=== PATIENT | female | born 1935 | race Caucasian/White ===

== ENCOUNTER 2020-03-06 12:37 | Emergency (ER) | payer MEDICARE, MEDICAID, SELFPAY ==
[2020-03-06 12:37] VITALS: BP 181/94; PULSE 62; RESP 18; O2SAT 91
[2020-03-06 12:38] VITALS: BP 176/99; PULSE 62; RESP 16; TEMP 36.6; O2SAT 94; BMI 31.8
--- NOTE | 2020-03-06 12:45 | CT_ITS ---
WS: [id number] CT HEAD NONCONTRAST HISTORY: Head Injury, On Blood Thinners TECHNIQUE: Contiguous axial imaging performed through the brain in 2.5 mm imaging. Bone and soft tiss ue windows. Sagittal and coronal reformats reviewed. All CT scans at [facility] use at le ast one of these dose optimization techniques: automated exposure control; mA and/or kV adjustment pe r patient size (includes targeted exams where dose is matched to clinical indication); or iterative r econstruction. DLP: 761.89 mGy.cm COMPARISON: 03/27/2016 No acute intracranial hemorrhage, midline shift or mass effect. Moderate atrophy and moderate chronic microvascular ischemic disease. Increased density in the RIGHT MCA similar to prior studies. Multiple prior lacunar infarcts. Largest is in the LEFT thalamus. Ventricles: Normal size with no hydrocephalus. Paranasal sinuses: Mucoperiosteal thickening LEFT maxillary sinus. No air-fluid levels. Mastoid air cells: Well pneumatized. Calvarium and scalp: No skull fracture. There is soft tissue hematoma and contusion with overlying st aples in the RIGHT posterior occiput. CT/CT head wo con* [id number] IMPRESSION: 1. No acute intracranial hemorrhage or edema. 2. Moderate atrophy with moderate extensive chronic microvascular ischemic dis ease and stable lacunar infarcts.
[2020-03-06 13:10] VITALS: BP 181/94; PULSE 60; RESP 18; O2SAT 93
--- NOTE | 2020-03-06 13:34 | W.ED.HEATRA ---
HPI - Head Injury General: Chief complaint: Head Injury Stated complaint: FALL Time Seen by Provider: 03/06/20 12:45 Source: patient and EMS Mode of arrival: EMS Limitations: no limitations History of Present Illness: HPI Narrative: Mrs. Villalpando is a very nice 84-year-old female who comes in after she stumbled and fell and hit the back of her head. She had no loss of consciousness. She denies any neck pain. She denies any visual symptoms, nausea or vomiting or disorientation. Patient was concerned though because she is on Eliquis. She knows that she needs to be cautious it with any injuries because of this medication. She otherwise feels fine is not nauseated has not vomited. Associated symptoms: Deny confusion, nausea, neck pain, syncope, vertigo or vomiting Review of Systems Const: Denies: fever(s), chills, body aches, fatigue, malaise or diaphoresis Eyes: Denies: change in vision, blurry vision, blind spots, photophobia, eye discharge or eye redness ENMT: Denies: throat pain, odynophagia, hoarseness, swelling of lips/tongue, oral sores, ear or mastoid pain, ear discharge, change in hearing or nasal discharge Card: Denies: chest pain, palpitations, irregular heart rhythm, edema, lightheadedness, syncope, pre-syncope, dyspnea on exertion or orthopnea Resp: Denies: dyspnea, productive cough, non-productive cough, wheezing, hemoptysis or chest congestion GI: Denies: abdominal pain, nausea, vomiting, hematemesis, coffee ground emesis, heartburn, diarrhea, constipation, GI cramping, hematochezia or melena : Denies: flank pain, dysuria, urinary frequency, urinary urgency or hematuria Musc: Denies: neck pain, back pain, extremity pain, extremity swelling, joint pain, joint swelling, joint redness, joint warmth or joint stiffness Skin/Breast: Denies: rash, pruritus, erythema, skin tenderness or jaundice Neuro: Denies: headache(s), numbness in extremities, weakness in extremities, sensory changes, lack of coordination, difficulty walking, dizziness, vertigo, confusion, Slurred speech present or seizure-like activity Jayjay/Lymph: Denies: easy bruising, easy bleeding, petechiae, purpura or enlarged lymph nodes All/Imm: Denies: urticaria, throat swelling, tongue swelling, facial swelling or acute wheezing PFSH ED PFSH: Medical History Atherosclerotic heart disease Atrial fibrillation Chest pain Chronic intractable headache DVT (deep venous thrombosis) Essential hypertension Fatigue Mixed hyperlipidemia Pulmonary embolism Surgical History History of esophagogastroduodenoscopy (EGD) History of toe surgery Hx of cholecystectomy Hx of colonoscopy Family History Other No family history of disorders Social History Smoking and tobacco status: former smoker Alcohol intake: never Marital status: / Physical Exam Const: COMMON NORMALS: no acute distress, patient oriented x3, no limitations, healthy appearing and well nourished GENERAL APPEARANCE: cooperative, well kempt and well developed HENMT: COMMON NORMALS: normocephalic, atraumatic, external ears normal, EAC's normal and Normal external nose present HEAD & SCALP: normal to inspection, normocephalic and atraumatic FACE & SINUS: normal facial exam and face symmetric NOSE: Normal external nose present and Normal nares present EXTERNAL EAR: Yes external ears normal EXTERNAL AUDITORY CANAL: EAC's normal MOUTH: Normal oral and palatal mucosa present, lip normal and tongue normal Eye: COMMON NORMALS: Equal, round and reactive pupils present and conjunctivae normal GENERAL EYE: appearance normal, both eyes and all related structures ALIGNMENT: Yes alignment normal PERIORBITAL: periorbital findings normal EYELID: eyelids normal CONJUNCTIVA: Yes conjunctivae normal SCLERA: sclerae normal PUPIL: Yes Equal, round and reactive pupils present Neck/C-Spine: COMMON NORMALS: full ROM, no lymphadenopathy, supple, no meningeal signs and no JVD GENERAL: Yes normal visual inspection and Yes trachea midline Chest: COMMONS NORMALS: normal inspection of the chest and normal palpation of entire chest wall Resp: COMMON NORMALS: normal respiratory effort, No retractions and No use of accessory muscles EFFORT & INSPECTION: Yes able to speak in complete sentences and Yes symmetric chest movement AUSCULTATION: no crackles, no rales, no rhonchi and no wheezes Cardio: COMMON NORMALS: no JVD, regular rate, regular rhythm, S1 normal heart sound present and S2 normal heart sound present RATE: regular rate RHYTHM: regular rhythm HEART SOUNDS: S1 normal heart sound present, S2 normal heart sound present, no click, no gallops, no murmurs, no rubs and abnormal split S2 GI: COMMON NORMALS: Soft to palpation and No hepatosplenomegaly present PALPATION: Yes Soft to palpation, No Tenderness to palpation present (GI), No Guarding due to palpation present (GI), No Rigid due to palpation, Yes No hepatosplenomegaly present, No Hernia present, No Palpable mass present and No Pulsatile mass present : COMMON NORMALS: Yes no CVA tenderness BLADDER/KIDNEY EXAM: Yes no CVA tenderness EXTERNAL FEMALE EXAM: No Hernia present Back/Pelvis: COMMON NORMALS: no CVA tenderness, thoracic and lumbar spine normal to inspection, no thoracic nor lumbar tenderness and thoraco-lumbar ROM normal Extremity: COMMON NORMALS: normal to inspection, full ROM, capillary refill normal, no joint enlargement, no clubbing, cyanosis or edema and no calf tenderness Neuro: COMMON NORMALS: patient oriented x3, CN's II-XII intact bilaterally, moves all extremities, no focal motor deficits and no sensory deficits noted MENINGEAL SIGNS: Yes no meningeal signs SPEECH: speech normal Psych: COMMON NORMALS: mental status grossly normal, Normal thought process present, cooperative, normal affect, speech normal and activity/motor behavior normal APPEARANCE: Yes well kempt SPEECH: Yes normal speech THOUGHT PROCESS: Normal thought process present Skin: COMMON NORMALS: no rashes or lesions noted, turgor normal, no jaundice, no petechiae and no mottling GENERAL SKIN EXAM: no rashes or lesions noted and turgor normal Procedures Laceration Laceration 1: Site: scalp Size (cm): 1 Description: linear Depth: simple, single layer Pre-repair: wound explored, irrigated extensively and deep structures intact Skin layer closed with: other (2 david placed) Course Vital Signs: Vital signs: Vital Signs Temperature 97.8 F 03/06/20 12:38 Pulse Rate 60 03/06/20 13:10 Respiratory Rate 18 03/06/20 13:10 Blood Pressure 181/94 03/06/20 13:10 Pulse Oximetry 93 03/06/20 13:10 MDM - Head Injury MDM Narrative: Medical decision making narrative: Patient is happy to hear that her CT scan is negative. I did place 2 david in her head she declined any anesthesia. She agrees to return should her symptoms change or worsen but at this time she would like to be discharged. Imaging Data^: CT Head: Radiologist's impression: [facility] [address] [place] [address] CT Scan Report Signed Patient: Aura Villalpando Unit #: [id number] : 1935 Age/Sex: 84 / F ADM Date: 03/06/20 Loc: ER Room/Bed: Attending Dr: Ordering Provider/Ordering MD: Nancy Hu DO Date of Service: 03/06/20 Procedure(s): CT head wo con* [id number] Accession Number(s): [id number] Report Number: [id number] WS: [id number] CT HEAD NONCONTRAST HISTORY: Head Injury, On Blood Thinners TECHNIQUE: Contiguous axial imaging performed through the brain in 2.5 mm imaging. Bone and soft tissue windows. Sagittal and coronal reformats reviewed. All CT scans at [facility] use at least one of these dose optimization techniques: automated exposure control; mA and/or kV adjustment per patient size (includes targeted exams where dose is matched to clinical indication); or iterative reconstruction. DLP: 761.89 mGy.cm COMPARISON: 03/27/2016 No acute intracranial hemorrhage, midline shift or mass effect. Moderate atrophy and moderate chronic microvascular ischemic disease. Increased density in the RIGHT MCA similar to prior studies. Multiple prior lacunar infarcts. Largest is in the LEFT thalamus. Ventricles: Normal size with no hydrocephalus. Paranasal sinuses: Mucoperiosteal thickening LEFT maxillary sinus. No air-fluid levels. Mastoid air cells: Well pneumatized. Calvarium and scalp: No skull fracture. There is soft tissue hematoma and contusion with overlying david in the RIGHT posterior occiput. CT/CT head wo con* [id number] IMPRESSION: 1. No acute intracranial hemorrhage or edema. 2. Moderate atrophy with moderate extensive chronic microvascular ischemic disease and stable lacunar infarcts. Dictated By: Michaelle Angela DO Signed By: Michaelle Angela DO Signed Date/Time: 03/06/20 1414 DD/ 1408 Discharge Plan Discharge Patient Disposition: Home, Self-Care Clinical Impression: Laceration Head injury Qualifiers: Encounter type: initial encounter Qualified Code(s): S09.90XA - Unspecified injury of head, initial encounter Condition: Stable Prescriptions: No Action omega-3 fatty acids [Fish Oil Concentrate] 1,000 mg capsule 1,000 mg PO DAILY RF: 0 cranberry extract 250 mg tablet PO DAILY RF: 0 cholecalciferol (vitamin D3) 1,000 unit capsule 1,000 unit PO DAILY RF: 0 vitamin E mixed 1,000 unit capsule PO DAILY RF: 0 ferrous sulfate 325 mg (65 mg iron) tablet,delayed release (DR/EC) 325 mg PO .every other day RF: 0 Xarelto 15 mg tablet 15 mg PO DAILY RF: 0 calcium citrate 250 mg calcium tablet 250 mg PO DAILY RF: 0 spironolactone 25 mg tablet 25 mg PO DAILY RF: 0 carvedilol 25 mg tablet 25 mg PO BID RF: 0 cetirizine 10 mg tablet 10 mg PO DAILY RF: 0 Discharge Orders: Discharge Order (Routine); Ordered 03/06/20 Ordered By: Nancy Hu Referrals: Bhaskar Alejandra MD [Primary Care Provider] - 1-3 days Discharge Diet: Advance as tolerated Discharge Activity: Increase activity as tolerated Patient Instructions: Laceration (ED), Minor Head Injury (ED) Activity Restrictions/Additional Instructions: Please return to the ER immediately for any of the signs or symptoms listed on your discharge instruction sheets, worsening/changing of your symptoms, you are not getting better as quickly as expected, or for ANY other cause or concerns. Please return to the ER or follow-up with your doctor in 7 days to have your david removed. Coding Level of Care Code ED Admitting Clerk for Gayle Fwd Exam Comprehensive
[2020-03-06 15:46] VITALS: BP 160/94; PULSE 67; RESP 16; O2SAT 95
== END 2020-03-06 15:46 | disposition home or self-care (01) ==
PROVIDERS: Emergency Provider Emergency Medicine; PCP Family Medicine
DX: S01.01XA Laceration without foreign body of scalp, initial encounter (principal); W01.198A Fall on same level from slipping, tripping and stumbling with subsequent striking against other object, initial encounter; I48.91 Unspecified atrial fibrillation; I10 Essential (primary) hypertension; E78.2 Mixed hyperlipidemia; Z87.891 Personal history of nicotine dependence
CPT/HCPCS: 12001; 12345; 70450; 99281; 99283

== ENCOUNTER 2020-05-21 20:00 | Outpatient (CLI) | payer OTHER, MEDICARE, MEDICAID, SELFPAY | END 2020-05-21 20:01 | disposition home or self-care (01) | LOC: SLEEP 05-22 15:52 | PROVIDERS: PCP Family Medicine; Visit Provider Family Medicine | DX: G47.10 Hypersomnia, unspecified (principal); R40.0 Somnolence | CPT/HCPCS: G0399 ==

== ENCOUNTER 2021-05-15 08:55 | Outpatient (CLI) | payer MEDICARE, MEDICAID, SELFPAY ==
--- NOTE | 2021-05-15 09:07 | XR_ITS ---
WS: [id number] Right knee, AP and lateral views, 05/15/2021 Clinical Data: R KNEE PAIN Comparison: None. Findings: There is osteoarthritic narrowing of the medial and lateral joint compartments. There are osteophytes of the lateral femoral condyle and lateral tibial plateau. The posterior patella shows irregularity. No fractures or dislocations are seen. There is vascular calcification in the [place] of the arteries. 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 Kellgren-Saad Classification: grade 3 (moderate): moderate multiple osteoph ytes, definite narrowing of joint space and some sclerosis and possible deformi ty of bone ends
== END 2021-05-15 08:56 | disposition home or self-care (01) ==
PROVIDERS: PCP Family Medicine; Visit Provider Family Medicine
DX: M17.11 Unilateral primary osteoarthritis, right knee (principal)
CPT/HCPCS: 73560

== ENCOUNTER 2021-06-06 14:39 | Outpatient (CLI) | payer MEDICARE, MEDICAID, SELFPAY ==
--- NOTE | 2021-06-06 15:15 | MR_ITS ---
WS: [id number] MRI RIGHT KNEE NONCONTRAST TECHNIQUE: Axial PD, coronal PD fat sat, coronal PD, sagittal PD, and sagittal PD fat-sat images obta ined. CLINICAL INFORMATION: RIGHT KNEE PAIN COMPARISON: None. FINDINGS: Distal quadriceps and patella tendons intact. Hypertrophic patella. Advanced tricompartmental arthrit is with hypertrophic changes along the joint line. Normal ACL and PCL. Chronic thinning of the medial and lateral meniscus. Blunting of the anterior and posterior horn lateral meniscus with tear at the meniscal root with peripheral herniation of the meniscus. Small parameniscal cysts. Chronic thinning of the medial meniscus without acute tear. 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 No significant subchondral ed augustin. Advanced chondromalacia patella. Small suprapatellar effusion. Small popliteal cyst measuring 2. 1 x 0.7 x 3.6 cm. Medial and lateral collateral ligaments are intact. MR/MR knee RT wo con* [id number] IMPRESSION: 1. Small suprapatellar effusion. 2. Advanced tricompartmental arthritis with joint space narrowing. Hypertrophi c changes along the joint line. 3. Normal ACL and PCL. 4. Advanced chronic thinning of the medial and lateral meniscus with slight pe ripheral extrusion of the lateral meniscus and tear of the meniscal root. Small parameniscal cysts 5. Advanced chondromalacia patella. Advanced chondromalacia involving the medi al and lateral joint compartments. No subchondral edema. 6. Popliteal cyst measuring 2.1 x 0.7 x 3.6 cm
== END 2021-06-06 14:40 | disposition home or self-care (01) ==
LOC: RADSHAW 14:49
PROVIDERS: PCP Family Medicine; Visit Provider Family Medicine
DX: M71.21 Synovial cyst of popliteal space [Baker], right knee (principal); M22.41 Chondromalacia patellae, right knee; M13.861 Other specified arthritis, right knee; M25.461 Effusion, right knee
CPT/HCPCS: 73721

== ENCOUNTER 2021-11-19 14:00 | Outpatient (CLI) | payer MEDICARE, MEDICAID, SELFPAY ==
--- NOTE | 2021-11-19 14:04 | MM_ITS ---
WS: [id number] BILATERAL DIGITAL SCREENING MAMMOGRAPHY WITH CAD CLINICAL INFORMATION: SCREENING HISTORY: Screening mammogram. No current complaints. COMPARISON: October 24, 2018 TECHNIQUE: Bilateral CC and MLO views. FINDINGS: Scattered fibroglandular densities bilaterally. Punctate and lucent centered calcifications. Vascular calcification. Biopsy clip RIGHT breast. Round nodule upper outer LEFT breast measuring 7 mm appears new from previous. Recommend further evaluation with spot compression diagnostic 3-D tomosynthesis a nd ultrasound. RIGHT breast is unremarkable. MM/[place] [id number] IMPRESSION: BI-RADS: 0-Incomplete: Need additional imaging evaluation FOLLOW UP: Need Additional Imaging Recommend further evaluation LEFT breast with spot compression diagnostic 3-D t omosynthesis and ultrasound.
== END 2021-11-19 14:01 | disposition home or self-care (01) ==
LOC: RADSHAW 14:03
PROVIDERS: PCP Family Medicine; Visit Provider Family Medicine
DX: Z12.31 Encounter for screening mammogram for malignant neoplasm of breast (principal)
CPT/HCPCS: 77063; 77067

== ENCOUNTER 2021-12-17 12:48 | Outpatient (CLI) | payer MEDICARE, MEDICAID, SELFPAY ==
--- NOTE | 2021-12-17 13:01 | MM_ITS ---
WS: [id number] LEFT 3D TOMOSYNTHESIS DIGITAL MAMMOGRAPHY WITH CAD CLINICAL INFORMATION: ABNORMAL MAMMO COMPARISON: November 19, 2021 TECHNIQUE: 3 views of the left breast were obtained. FINDINGS: Scattered fibroglandular densities of the left breast. Stable previously described 6 mm ovoid density upper outer LEFT breast. Ultrasound is pending. Vascular calcification. ULTRASOUND BREAST LEFT TECHNIQUE: Ultrasound left breast focused area of concern. CLINICAL INFORMATION: ABNORMAL MAMMO COMPARISON: None. FINDINGS: Ultrasound LEFT breast at the 1:00 position 2 cm from the nipple. There is an incidental cyst with th rough transmission measuring 6.6 x 4.0 x 6.9 mm. This is benign. No suspicious lesions. No lesions to target for biopsy. Recommend return to annual screening mammography. MM/[place] [id number] IMPRESSION: BI-RADS: 2-Benign FOLLOW UP: 1 Year Follow-up Recommend return to annual screening mammography.
== END 2021-12-17 12:49 | disposition home or self-care (01) ==
LOC: RAD 12:50
PROVIDERS: PCP Family Medicine; Visit Provider Family Medicine
DX: R92.8 Other abnormal and inconclusive findings on diagnostic imaging of breast (principal)
CPT/HCPCS: 76642; 77061

== ENCOUNTER → 2021-12-31 13:53 | Outpatient (BNVA) | payer MEDICARE, MEDICAID, SELFPAY | PROVIDERS: PCP Family Medicine; Visit Provider Nurse Practitioner Family | DX: I48.11 Longstanding persistent atrial fibrillation (principal); Z79.01 Long term (current) use of anticoagulants; I10 Essential (primary) hypertension; Z87.891 Personal history of nicotine dependence | CPT/HCPCS: 99213; 99214 ==

== ENCOUNTER → 2022-01-07 14:32 | Outpatient (BNVA) | payer MEDICARE, MEDICAID, SELFPAY | PROVIDERS: PCP Family Medicine; Visit Provider Orthopaedic Surgery | DX: Z71.89 Other specified counseling (principal); Z87.891 Personal history of nicotine dependence; M17.11 Unilateral primary osteoarthritis, right knee | CPT/HCPCS: 20610; J0702; J3490 ==

== ENCOUNTER → 2022-06-24 13:35 | Outpatient (BNVA) | payer MEDICARE, MEDICAID, SELFPAY | PROVIDERS: PCP Family Medicine; Visit Provider Internal Medicine Cardiovascular Disease | DX: I48.11 Longstanding persistent atrial fibrillation (principal); Z79.01 Long term (current) use of anticoagulants; I82.519 Chronic embolism and thrombosis of unspecified femoral vein; I27.82 Chronic pulmonary embolism; E78.5 Hyperlipidemia, unspecified; I10 Essential (primary) hypertension; Z87.891 Personal history of nicotine dependence | CPT/HCPCS: 99214 ==

== ENCOUNTER → 2022-07-16 13:13 | Outpatient (BNVA) | payer MEDICARE, MEDICAID, SELFPAY | PROVIDERS: PCP Family Medicine; Visit Provider Family Medicine | DX: E78.5 Hyperlipidemia, unspecified (principal); I48.11 Longstanding persistent atrial fibrillation; I10 Essential (primary) hypertension; I27.82 Chronic pulmonary embolism; M19.019 Primary osteoarthritis, unspecified shoulder; I26.99 Other pulmonary embolism without acute cor pulmonale | CPT/HCPCS: 80053; 80061; 84550; 85025 ==

== ENCOUNTER 2022-07-29 13:43 | Outpatient (RCR) | payer MEDICARE, MEDICAID, SELFPAY | END 2022-08-12 23:59 | disposition home or self-care (01) | LOC: SPT 13:43 | PROVIDERS: PCP Family Medicine; Visit Provider Family Medicine | DX: M19.019 Primary osteoarthritis, unspecified shoulder (principal) | CPT/HCPCS: 97110; 97161 ==

== ENCOUNTER 2022-08-13 06:00 | Outpatient (RCR) | payer MEDICARE, MEDICAID, SELFPAY | END 2022-09-02 23:59 | disposition home or self-care (01) | LOC: SPT 06:00 | PROVIDERS: PCP Family Medicine; Visit Provider Family Medicine | DX: M19.019 Primary osteoarthritis, unspecified shoulder (principal) | CPT/HCPCS: 97110 ==

== ENCOUNTER → 2022-09-23 14:24 | Outpatient (BNVA) | payer MEDICARE, MEDICAID, SELFPAY | PROVIDERS: PCP Family Medicine; Visit Provider Orthopaedic Surgery | DX: M17.11 Unilateral primary osteoarthritis, right knee (principal) | CPT/HCPCS: 20610; J0702; J3490 ==

== ENCOUNTER 2022-10-08 13:49 | Emergency (ER) | payer MEDICARE, MEDICAID, SELFPAY ==
[2022-10-08] VITALS (11 sets, daily range): BP systolic 97–136; BP diastolic 55–74; PULSE 64–92; RESP 14–25; TEMP 37.6; O2SAT 90–94; BMI 34.0
--- NOTE | 2022-10-08 13:54 | XR_ITS ---
WS: [id number] Exam: XR chest 1V portable [id number] Date/Time of Exam: 10/08/2022 1:57 PM Reason For Exam: dyspnea/cough Comparison 09/25/2018. The lungs are clear and fully expanded. Heart size top limits normal. The mediastinum is normal in co ntour. No pleural effusions. Regional bony elements are unremarkable. XR/XR chest 1V portable [id number] IMPRESSION: 1. No acute cardiopulmonary finding.
--- NOTE | 2022-10-08 13:54 | CT_ITS ---
WS: [id number] CT HEAD TECHNIQUE: Noncontrast CT of the head obtained from the skullbase to the vertex. CLINICAL INFORMATION: Headache x9 days COMPARISON: CT March 06, 2020 DLP: 1018.[address] scans at [facility] use at least one of these dose optimization techniques: automated e xposure control; mA and/or kV adjustment per patient size (includes targeted exams where dose is matc hed to clinical indication); or iterative reconstruction. FINDINGS: No evidence of intracranial hemorrhage or mass effect. Ventricular system and basal cisterns are busch nt. Moderate small vessel changes with moderate parenchymal volume loss. Small chronic lacunar infarc ts RIGHT basal ganglia. Chronic infarct involving the LEFT thalamus unchanged. Intracranial vascular calcification. Fluid within the LEFT maxillary sinus. Mild mucosal thickening ethmoid air cells. Mastoid air cells w ell aerated. CT/CT head wo con* [id number] IMPRESSION: 1. No evidence of intracranial hemorrhage or mass effect. 2. Moderate small vessel changes. Moderate parenchymal volume loss. 3. Chronic lacunar infarcts described above. 4. Intracranial vascular calcification. 5. LEFT maxillary sinusitis. 6. No other suspicious findings.
--- NOTE | 2022-10-08 14:02 | ECG_ITS ---
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 Measurements Intervals [place] Rate: 83 P: 30 KS: 197 QRS: -31 QRSD: 100 T: 31 QT: 369 QTc: 434 Interpretive Statements SINUS RHYTHM LEFT AXIS DEVIATION [QRS AXIS < -30] Compared to ECG 09/25/2018 11:06:26 Left-axis deviation now present Myocardial infarct finding no longer present Electronically Signed On 10-08-2022 15:58:44 MOTHERS HELPER by Crystal Weems M.D. [email or web address]
[2022-10-08 14:10] LABS: Basophils % 0.2 %; Hematocrit 45.4 % (37.0-47.0); Hemoglobin 14.8 g/dL (11.5-15.3); Lymphocytes # 1.3 10^3/uL (0.8-4.8); Mean Corpuscular HGB Conc 32.6 g/dL (30.0-36.0); Mean Corpuscular Hemoglobin 30.5 pg (28.0-34.0); Mean Corpuscular Volume 93.6 fl (81-99); Mean Platelet Volume 11.7 fL (7.4-10.4); Monocytes % 7.3 %; Neutrophils # 11.62 10^3/uL (1.8-7.7); Nucleated Red Blood Cells % 0 %; Platelet Count 210 10^3/cmm (130-400); Red Blood Count 4.85 10^6/uL (4.1-5.3); Red Cell Distribution Width 13.8 % (12.1-15.1)
[2022-10-08 14:27] LABS: Alanine Aminotransferase 42 U/L (0-33); Albumin Level 3.6 g/dL (3.5-5.2); Alkaline Phosphatase 169 U/L (35-105); Anion Gap 17.8 (5-19); Aspartate Amino Transferase 53 U/L (0-32); Blood Urea Nitrogen 42 mg/dL (8-23); Calcium 9.2 mg/dL (8.5-10.5); Carbon Dioxide 23 mmol/L (22-29); Chloride 97 mmol/L (98-107); Globulin 3.6 g/dL (1.3-4.6); Glucose 145 mg/dL (65-115); Lipase 24 U/L (13-60); Osmolality Calculated 289 mOsm/kg (285-295); Potassium 4.8 mmol/L (3.5-5.1); Sodium 133 mmol/L (136-145); Total Bilirubin 5.1 mg/dL (0.15-1.2); Total Protein 7.2 g/dL (6.6-8.7)
--- NOTE | 2022-10-08 14:35 | US_ITS ---
WS: [id number] RIGHT UPPER QUADRANT ULTRASOUND HISTORY: Abdominal pain. COMPARISON: 11/05/2015 Liver: 13.3 cm in length. Normal size liver. Mild central bile duct dilatation. Echogenic bile duct w alls. Portal Vein: Normal hepatopetal flow with monophasic waveform. Gallbladder: Prior cholecystectomy. CBD: 0.4 cm Pancreas: Poorly visualized pancreas. Right kidney: 10.6 cm in length. Normal size and echogenicity. No hydronephrosis or mass. Aorta and IVC: Unremarkable abdominal aorta and IVC. No ascites. US/US abdomen limited [id number] IMPRESSION: 1. Status post cholecystectomy. 2. Mildly prominent and echogenic central bile ducts. This can be seen with mi ld early biliary dilatation and cholangitis. The common bile duct is not dilate d. Additional imaging may include a CT abdomen and pelvis with IV contrast. MRC P may also be helpful.
--- NOTE | 2022-10-08 14:37 | W.ED.NAVMDI ---
Documented by User: Mohamud Naik DO 10/09/22 06:12 HPI - Nausea/Vomiting/Diarrhea General: Chief complaint: Abdominal Pain Stated complaint: DIARRHEA/ NAUSEA Time Seen by Provider: 10/08/22 13:53 Source: patient Mode of arrival: EMS History of Present Illness: 86-year-old female presents emergency room with complaint of abdominal pain with vomiting and diarrhea. She denies any medication on hematemesis or coffee-ground emesis she also is complaining of bilateral frontal headache she said she has had for the last 9 days. She denies any vision difficulty with her vision no facial asymmetry no difficulty speech or swallowing. She denies chest pain or shortness of breath. MD elicited complaint: nausea, vomiting and diarrhea Onset (ago): day(s) (1) Description of vomiting: watery Associated nausea: Yes Associated abdominal pain: Yes Location of pain: Diffuse Quality: cramping Exacerbating factors: none Relieving factors: none Associated symtoms: Reports bloating, headache(s) and nausea; Denies altered mental status, anxiety, change in vision, chest pain, cough, diaphoresis, decreased urine output, dizziness, dysuria, epistaxis, fatigue, fecal incontinence, fevers/chills, anorexia, malaise, myalgias, numbness, palpitations, rash, short of breath, syncope, tenesmus, tinnitus or weakness Review of Systems Const: Denies: fever(s), chills, fatigue, malaise or diaphoresis Eyes: Denies: change in vision ENMT: Denies: tinnitus or epistaxis Card: Denies: chest pain, palpitations or syncope Resp: Denies: dyspnea, productive cough or non-productive cough GI: Reports: abdominal pain, nausea, vomiting, diarrhea and bloating; Denies: fecal incontinence : Denies: dysuria, urinary frequency or urinary urgency Skin/Breast: Denies: rash or pruritus Neuro: Reports: headache(s); Denies: dizziness Psych: Denies: anxiety PFSH ED PFSH: Medical History Atherosclerotic heart disease Atrial fibrillation Chest pain Chronic intractable headache DVT (deep venous thrombosis) Dyslipidemia Essential hypertension Fatigue Hx of TIA (transient ischemic attack) and stroke Mixed hyperlipidemia Pulmonary acid aspiration syndrome Pulmonary embolism Pulmonary embolism Surgical History History of esophagogastroduodenoscopy (EGD) History of toe surgery Hx of cholecystectomy Hx of colonoscopy Family History Father Cancer Sister Cancer Other No family history of disorders Denies family history of Diabetes CAD (coronary artery disease) Clotting disorder Dementia Chronic kidney disease (CKD) Suicide Anesthesia complication Bleeding disorder Lung disease Stroke Social History Smoking and tobacco status: former smoker Alcohol intake: never Marital status: / Physical Exam Const: COMMON NORMALS: no acute distress EXAM LIMITATIONS: no altered mental status GENERAL APPEARANCE: cooperative and comfortable ORIENTATION/CONSCIOUSNESS: Yes awake, Yes oriented to person, Yes oriented to place and Yes oriented to time HENMT: COMMON NORMALS: normocephalic, atraumatic, hearing grossly normal bilaterally, external ears normal, EAC's normal, TM's normal bilaterally, Normal nasal mucous membranes and turbinates present, moist oral mucous membranes and oropharynx normal HEAD & SCALP: normocephalic and atraumatic NOSE: Normal nasal mucous membranes and turbinates present EXTERNAL EAR: Yes external ears normal EXTERNAL AUDITORY CANAL: EAC's normal TYMPANIC MEMBRANE: TM's normal bilaterally Eye: COMMON NORMALS: Equal, round and reactive pupils present, EOMs intact bilaterally, conjunctivae normal and no scleral icterus CONJUNCTIVA: Yes conjunctivae normal PUPIL: Yes Equal, round and reactive pupils present Neck/C-Spine: COMMON NORMALS: full ROM, no lymphadenopathy, supple and no JVD Lymph: LYMPHATIC: no lymphadenopathy noted and no lymphedema noted Resp: COMMON NORMALS: normal respiratory effort, No retractions, No use of accessory muscles and clear to auscultation bilaterally AUSCULTATION: clear to auscultation bilaterally Cardio: COMMON NORMALS: no JVD, regular rate, regular rhythm and No murmurs present (Cardio) RATE: regular rate RHYTHM: regular rhythm GI: COMMON NORMALS: No hepatosplenomegaly present AUSCULTATION: Yes normoactive bowel sounds PALPATION: Yes Tenderness to palpation present (GI) (Mild nonspecific epigastric and left right upper quadrant), No Guarding due to palpation present (GI) and Yes No hepatosplenomegaly present Extremity: COMMON NORMALS: normal to inspection, capillary refill normal, no clubbing, cyanosis or edema, no calf tenderness and no pedal edema Neuro: SENSORIUM/ORIENTATION: Yes oriented to person, Yes oriented to place and Yes oriented to time Skin: COMMON NORMALS: no rashes or lesions noted GENERAL SKIN EXAM: no rashes or lesions noted Course Vital Signs: Vital signs: Vital Signs Temperature 99.7 F H 10/08/22 13:49 Pulse Rate 74 10/09/22 00:30 Respiratory Rate 20 H 10/09/22 00:30 Blood Pressure 135/61 10/09/22 00:30 Pulse Oximetry 92 10/09/22 00:30 Oxygen Delivery Me thod 10/08/22 23:18 Oxygen Flow Rate 3 10/08/22 17:36 MDM - Nausea/Vomiting/Diarrhea Medical Decision Making Care signed out to Dr. Merchant at change of shift. See final notes for diagnosis and disposition. Patient presents here with abdominal pain fever does have an elevated bilirubin MRI findings showed: Daryn duct dilatation recommended ERCP I did speak to physician at [facility] will transfer there for high-level care for GI and ERCP capabilities. Lab Data 10/08/22 13:55 10/08/22 13:55 Radiology Impressions Chest X-Ray 10/08/22 13:54 IMPRESSION: 1. No acute cardiopulmonary finding. Head CT 10/08/22 13:54 IMPRESSION: 1. No evidence of intracranial hemorrhage or mass effect. 2. Moderate small vessel changes. Moderate parenchymal volume loss. 3. Chronic lacunar infarcts described above. 4. Intracranial vascular calcification. 5. LEFT maxillary sinusitis. 6. No other suspicious findings. Abdomen Ultrasound 10/08/22 14:35 IMPRESSION: 1. Status post cholecystectomy. 2. Mildly prominent and echogenic central bile ducts. This can be seen with mild early biliary dilatation and cholangitis. The common bile duct is not dilated. Additional imaging may include a CT abdomen and pelvis with IV contrast. MRCP may also be helpful. Abdomen/Pelvis CT 10/08/22 16:21 IMPRESSION: 1. Left kidney interpolar region poorly defined 2.4 cm low-density somewhat heterogeneous area, best seen series 8, image 33, perhaps reflecting an infectious process, however, other etiologies are not excluded please correlate clinically. Recommend non-emergent MRI without and with contrast or non-emergent CT without and with contrast. MRI is preferred for masses under 1.5 cm. 2. Cardiomegaly. 3. Coronary artery atherosclerotic calcifications. 4. Bilateral dependent atelectasis versus infiltrate. 5. Intrahepatic biliary dilation. 6. Bilateral renal cysts, negative for follow up. 7. Diverticulosis without diverticulitis. 8. Small amount of fluid in the uterine cavity, consider further evaluation with nonemergent pelvic ultrasound given patient age. 9. Inferior vena cava filter. 10. Small hiatal hernia. 11. Proximal celiac and superior mesenteric artery atherosclerotic calcification with up to at least 50% luminal narrowing. 12. Proximal bilateral renal artery atherosclerotic calcification with 80-90% luminal narrowing suspected with contrast seen distally. 13. Emphysematous changes. 14. Cholecystectomy. COMMENTS: 1. Consistent with the [employer]'s Incidental Findings Committee white paper (J Am Sophia Radiol 2018): Any incidental renal lesion less than 1 cm or classified as too small to characterize, or any incidental cystic renal lesion characterized as simple-appearing, is likely benign. No follow-up imaging is recommended for these lesions per consensus recommendations based on imaging criteria. 2. For patients with an IVC filter, recommend assessment for a management plan for the patient's IVC filter. If there is no established management plan, recommend referral to an interventional clinician on a nonemergent basis for evaluation. Cholangiopancreatography MRI 10/08/22 17:38 IMPRESSION: 1. Possible stricture or intraductal filling defect in the proximal common bile duct. There is dilatation of the intrahepatic bile ducts and common hepatic duct proximal to this point, and decompression of the common bile duct distally. Follow-up with ERCP is recommended. 2. Evaluation of the bile ducts is limited by suboptimal image quality. COMMENTS: Consistent with the [employer]'s Incidental Findings Committee white paper (J Am Sophia Radiol 2018): Any incidental renal lesion less than 1 cm or classified as too small to characterize, or any incidental cystic renal lesion characterized as simple-appearing, is likely benign. No follow-up imaging is recommended for these lesions per consensus recommendations based on imaging criteria. Cervical Spine X-Ray 10/08/22 18:33 IMPRESSION: 1. No fracture or acute finding. 2. Degenerative changes, greatest at C3-C4. Laboratory Results WBC 14.0 10^3/uL (4.0-10.0) H 10/08/22 13:55 RBC 4.85 10^6/uL (4.1-5.3) 10/08/22 13:55 Hgb 14.8 g/dL (11.5-15.3) 10/08/22 13:55 Hct 45.4 % (37.0-47.0) 10/08/22 13:55 MCV 93.6 fl (81-99) 10/08/22 13:55 MCH 30.5 pg (28.0-34.0) 10/08/22 13:55 MCHC 32.6 g/dL (30.0-36.0) 10/08/22 13:55 RDW 13.8 % (12.1-15.1) 10/08/22 13:55 Plt Count 210 10^3/cmm (130-400) 10/08/22 13:55 MPV 11.7 fL (7.4-10.4) H 10/08/22 13:55 Neut % (Auto) 83.0 % 10/08/22 13:55 Lymph % (Auto) 9.0 % 10/08/22 13:55 Rush % (Auto) 7.3 % 10/08/22 13:55 Eos % (Auto) 0.0 % 10/08/22 13:55 Baso % (Auto) 0.2 % 10/08/22 13:55 Neut # (Auto) 11.62 10^3/uL (1.8-7.7) H 10/08/22 13:55 Lymph # (Auto) 1.3 10^3/uL (0.8-4.8) 10/08/22 13:55 Rush # (Auto) 1.0 10^3/uL (0.2-0.9) H 10/08/22 13:55 Eos # (Auto) 0.0 10^3/uL (0.0-0.8) 10/08/22 13:55 Baso # (Auto) 0.0 10^3/uL (0.0-0.1) 10/08/22 13:55 Nucleated RBC % (auto) 0 % 10/08/22 13:55 Nucleated RBCs # 0.0 /100WBC 10/08/22 13:55 ESR 15 mm/hr (0-15) 10/08/22 13:55 Sodium 133 mmol/L (136-145) L 10/08/22 13:55 Potassium 4.8 mmol/L (3.5-5.1) 10/08/22 13:55 Chloride 97 mmol/L (98-107) L 10/08/22 13:55 Carbon Dioxide 23 mmol/L (22-29) 10/08/22 13:55 Anion Gap 17.8 (5-19) 10/08/22 13:55 BUN 42 mg/dL (8-23) H 10/08/22 13:55 Creatinine 1.8 mg/dL (0.5-0.9) H 10/08/22 13:55 GFR Calculation Not Reportable 10/08/22 13:55 Glucose 145 mg/dL (65-115) H 10/08/22 13:55 Calculated Osmolality 289 mOsm/kg (285-295) 10/08/22 13:55 Lactic Acid 1.2 mmol/L (0.5-2.2) 10/08/22 18:45 Calcium 9.2 mg/dL (8.5-10.5) 10/08/22 13:55 Total Bilirubin 5.1 mg/dL (0.15-1.2) H 10/08/22 13:55 GGT 215 U/L (5-36) H 10/08/22 13:55 AST 53 U/L (0-32) H 10/08/22 13:55 ALT 42 U/L (0-33) H 10/08/22 13:55 Alkaline Phosphatase 169 U/L (35-105) H 10/08/22 13:55 Ammonia 11 umol/L (11-51) 10/08/22 18:25 Troponin T Baseline 27 ng/L (0-10) H 10/08/22 18:25 Troponin T 120 Minute 24.22 ng/L (0-10) H 10/08/22 20:30 Delta Troponin T -2.78 ABS# (0-10) L 10/08/22 20:30 C-Reactive Protein 265.3 mg/L (0.0-4.9) H 10/08/22 13:55 NT-Pro-B Natriuret Pep 2796 pg/mL (0-450) H 10/08/22 13:55 Total Protein 7.2 g/dL (6.6-8.7) 10/08/22 13:55 Albumin 3.6 g/dL (3.5-5.2) 10/08/22 13:55 Globulin 3.6 g/dL (1.3-4.6) 10/08/22 13:55 Lipase 24 U/L (13-60) 10/08/22 13:55 Procalcitonin 2.53 ng/mL (0-0.5) H 10/08/22 13:55 TSH 1.38 uIU/mL (0.27-4.20) 10/08/22 13:55 Urine Color Yellow (Yellow) 10/08/22 17:40 Urine Appearance Cloudy (CLEAR) A 10/08/22 17:40 Urine pH 5 (5-7) 10/08/22 17:40 Ur Specific [place] 1.015 (1.005-1.030) 10/08/22 17:40 Urine Protein 2+ (Negative) H 10/08/22 17:40 Urine Glucose (UA) Norm (Normal) 10/08/22 17:40 Urine Ketones 1+ (Negative) H 10/08/22 17:40 Urine Blood 3+ (Negative) H 10/08/22 17:40 Urine Nitrate Positive (Negative) H 10/08/22 17:40 Urine Bilirubin Neg (Negative) 10/08/22 17:40 Urine Urobilinogen Norm mg/dL (Negative) 10/08/22 17:40 Ur Leukocyte Esterase 2+ (Negative) H 10/08/22 17:40 Urine RBC 10-15 /hpf (0-2) H 10/08/22 17:40 Urine WBC 55-80 /hpf (0-5) H 10/08/22 17:40 Ur Squamous Epith Cells 0-4 /hpf (0-5) H 10/08/22 17:40 Amorphous Sediment Not Reportable 10/08/22 17:40 Urine Bacteria 4+ /hpf (NONE) H 10/08/22 17:40 Hepatitis A IgM Ab Non-reactive (Nonreactive) 10/08/22 13:55 Hep Bs Antigen Non-reactive (Nonreactive) 10/08/22 13:55 Hep B Core IgM Ab Non-reactive (Nonreactive) 10/08/22 13:55 Hepatitis C Antibody Non-reactive (Nonreactive) 10/08/22 13:55 Discharge Plan Discharge Patient Disposition: Xfer Short-Term Hosp Clinical Impression: Abdominal pain, Elevated bilirubin Condition: Stable Referrals: Bhaskar Alejandra MD [Primary Care Provider] - Patient Instructions: Abdominal Pain (ED) Coding Level of Care Code ED [employer] Driver for Chg Fwd Exam Comprehensive Documented by User: Salo Merchant MD 10/08/22 21:55 HPI - Nausea/Vomiting/Diarrhea General: Chief complaint: Abdominal Pain Stated complaint: DIARRHEA/ NAUSEA Time Seen by Provider: 10/08/22 13:53 PFSH ED PFSH: Medical History Atherosclerotic heart disease Atrial fibrillation Chest pain Chronic intractable headache DVT (deep venous thrombosis) Dyslipidemia Essential hypertension Fatigue Hx of TIA (transient ischemic attack) and stroke Mixed hyperlipidemia Pulmonary acid aspiration syndrome Pulmonary embolism Pulmonary embolism Surgical History History of esophagogastroduodenoscopy (EGD) History of toe surgery Hx of cholecystectomy Hx of colonoscopy Family History Father Cancer Sister Cancer Other No family history of disorders Denies family history of Diabetes CAD (coronary artery disease) Clotting disorder Dementia Chronic kidney disease (CKD) Suicide Anesthesia complication Bleeding disorder Lung disease Stroke Social History Smoking and tobacco status: former smoker Alcohol intake: never Marital status: / Course Vital Signs: Vital signs: Vital Signs Temperature 99.7 F H 10/08/22 13:49 Pulse Rate 74 10/09/22 00:30 Respiratory Rate 20 H 10/09/22 00:30 Blood Pressure 135/61 10/09/22 00:30 Pulse Oximetry 92 10/09/22 00:30 Oxygen Delivery Me thod 10/08/22 23:18 Oxygen Flow Rate 3 10/08/22 17:36 MDM - Nausea/Vomiting/Diarrhea Medical Decision Making Care signed out to Dr. Merchant at change of shift. See final notes for diagnosis and disposition. Patient presents here with abdominal pain fever does have an elevated bilirubin MRI findings showed: Daryn duct dilatation recommended ERCP I did speak to physician at [facility] will transfer there for high-level care for GI and ERCP capabilities. Lab Data 10/08/22 13:55 10/08/22 13:55 Radiology Impressions Chest X-Ray 10/08/22 13:54 IMPRESSION: 1. No acute cardiopulmonary finding. Head CT 10/08/22 13:54 IMPRESSION: 1. No evidence of intracranial hemorrhage or mass effect. 2. Moderate small vessel changes. Moderate parenchymal volume loss. 3. Chronic lacunar infarcts described above. 4. Intracranial vascular calcification. 5. LEFT maxillary sinusitis. 6. No other suspicious findings. Abdomen Ultrasound 10/08/22 14:35 IMPRESSION: 1. Status post cholecystectomy. 2. Mildly prominent and echogenic central bile ducts. This can be seen with mild early biliary dilatation and cholangitis. The common bile duct is not dilated. Additional imaging may include a CT abdomen and pelvis with IV contrast. MRCP may also be helpful. Abdomen/Pelvis CT 10/08/22 16:21 IMPRESSION: 1. Left kidney interpolar region poorly defined 2.4 cm low-density somewhat heterogeneous area, best seen series 8, image 33, perhaps reflecting an infectious process, however, other etiologies are not excluded please correlate clinically. Recommend non-emergent MRI without and with contrast or non-emergent CT without and with contrast. MRI is preferred for masses under 1.5 cm. 2. Cardiomegaly. 3. Coronary artery atherosclerotic calcifications. 4. Bilateral dependent atelectasis versus infiltrate. 5. Intrahepatic biliary dilation. 6. Bilateral renal cysts, negative for follow up. 7. Diverticulosis without diverticulitis. 8. Small amount of fluid in the uterine cavity, consider further evaluation with nonemergent pelvic ultrasound given patient age. 9. Inferior vena cava filter. 10. Small hiatal hernia. 11. Proximal celiac and superior mesenteric artery atherosclerotic calcification with up to at least 50% luminal narrowing. 12. Proximal bilateral renal artery atherosclerotic calcification with 80-90% luminal narrowing suspected with contrast seen distally. 13. Emphysematous changes. 14. Cholecystectomy. COMMENTS: 1. Consistent with the [employer]'s Incidental Findings Committee white paper (J Am Sophia Radiol 2018): Any incidental renal lesion less than 1 cm or classified as too small to characterize, or any incidental cystic renal lesion characterized as simple-appearing, is likely benign. No follow-up imaging is recommended for these lesions per consensus recommendations based on imaging criteria. 2. For patients with an IVC filter, recommend assessment for a management plan for the patient's IVC filter. If there is no established management plan, recommend referral to an interventional clinician on a nonemergent basis for evaluation. Cholangiopancreatography MRI 10/08/22 17:38 IMPRESSION: 1. Possible stricture or intraductal filling defect in the proximal common bile duct. There is dilatation of the intrahepatic bile ducts and common hepatic duct proximal to this point, and decompression of the common bile duct distally. Follow-up with ERCP is recommended. 2. Evaluation of the bile ducts is limited by suboptimal image quality. COMMENTS: Consistent with the [employer]'s Incidental Findings Committee white paper (J Am Sophia Radiol 2018): Any incidental renal lesion less than 1 cm or classified as too small to characterize, or any incidental cystic renal lesion characterized as simple-appearing, is likely benign. No follow-up imaging is recommended for these lesions per consensus recommendations based on imaging criteria. Cervical Spine X-Ray 10/08/22 18:33 IMPRESSION: 1. No fracture or acute finding. 2. Degenerative changes, greatest at C3-C4. Laboratory Results WBC 14.0 10^3/uL (4.0-10.0) H 10/08/22 13:55 RBC 4.85 10^6/uL (4.1-5.3) 10/08/22 13:55 Hgb 14.8 g/dL (11.5-15.3) 10/08/22 13:55 Hct 45.4 % (37.0-47.0) 10/08/22 13:55 MCV 93.6 fl (81-99) 10/08/22 13:55 MCH 30.5 pg (28.0-34.0) 10/08/22 13:55 MCHC 32.6 g/dL (30.0-36.0) 10/08/22 13:55 RDW 13.8 % (12.1-15.1) 10/08/22 13:55 Plt Count 210 10^3/cmm (130-400) 10/08/22 13:55 MPV 11.7 fL (7.4-10.4) H 10/08/22 13:55 Neut % (Auto) 83.0 % 10/08/22 13:55 Lymph % (Auto) 9.0 % 10/08/22 13:55 Rush % (Auto) 7.3 % 10/08/22 13:55 Eos % (Auto) 0.0 % 10/08/22 13:55 Baso % (Auto) 0.2 % 10/08/22 13:55 Neut # (Auto) 11.62 10^3/uL (1.8-7.7) H 10/08/22 13:55 Lymph # (Auto) 1.3 10^3/uL (0.8-4.8) 10/08/22 13:55 Rush # (Auto) 1.0 10^3/uL (0.2-0.9) H 10/08/22 13:55 Eos # (Auto) 0.0 10^3/uL (0.0-0.8) 10/08/22 13:55 Baso # (Auto) 0.0 10^3/uL (0.0-0.1) 10/08/22 13:55 Nucleated RBC % (auto) 0 % 10/08/22 13:55 Nucleated RBCs # 0.0 /100WBC 10/08/22 13:55 ESR 15 mm/hr (0-15) 10/08/22 13:55 Sodium 133 mmol/L (136-145) L 10/08/22 13:55 Potassium 4.8 mmol/L (3.5-5.1) 10/08/22 13:55 Chloride 97 mmol/L (98-107) L 10/08/22 13:55 Carbon Dioxide 23 mmol/L (22-29) 10/08/22 13:55 Anion Gap 17.8 (5-19) 10/08/22 13:55 BUN 42 mg/dL (8-23) H 10/08/22 13:55 Creatinine 1.8 mg/dL (0.5-0.9) H 10/08/22 13:55 GFR Calculation Not Reportable 10/08/22 13:55 Glucose 145 mg/dL (65-115) H 10/08/22 13:55 Calculated Osmolality 289 mOsm/kg (285-295) 10/08/22 13:55 Lactic Acid 1.2 mmol/L (0.5-2.2) 10/08/22 18:45 Calcium 9.2 mg/dL (8.5-10.5) 10/08/22 13:55 Total Bilirubin 5.1 mg/dL (0.15-1.2) H 10/08/22 13:55 GGT 215 U/L (5-36) H 10/08/22 13:55 AST 53 U/L (0-32) H 10/08/22 13:55 ALT 42 U/L (0-33) H 10/08/22 13:55 Alkaline Phosphatase 169 U/L (35-105) H 10/08/22 13:55 Ammonia 11 umol/L (11-51) 10/08/22 18:25 Troponin T Baseline 27 ng/L (0-10) H 10/08/22 18:25 Troponin T 120 Minute 24.22 ng/L (0-10) H 10/08/22 20:30 Delta Troponin T -2.78 ABS# (0-10) L 10/08/22 20:30 C-Reactive Protein 265.3 mg/L (0.0-4.9) H 10/08/22 13:55 NT-Pro-B Natriuret Pep 2796 pg/mL (0-450) H 10/08/22 13:55 Total Protein 7.2 g/dL (6.6-8.7) 10/08/22 13:55 Albumin 3.6 g/dL (3.5-5.2) 10/08/22 13:55 Globulin 3.6 g/dL (1.3-4.6) 10/08/22 13:55 Lipase 24 U/L (13-60) 10/08/22 13:55 Procalcitonin 2.53 ng/mL (0-0.5) H 10/08/22 13:55 TSH 1.38 uIU/mL (0.27-4.20) 10/08/22 13:55 Urine Color Yellow (Yellow) 10/08/22 17:40 Urine Appearance Cloudy (CLEAR) A 10/08/22 17:40 Urine pH 5 (5-7) 10/08/22 17:40 Ur Specific [place] 1.015 (1.005-1.030) 10/08/22 17:40 Urine Protein 2+ (Negative) H 10/08/22 17:40 Urine Glucose (UA) Norm (Normal) 10/08/22 17:40 Urine Ketones 1+ (Negative) H 10/08/22 17:40 Urine Blood 3+ (Negative) H 10/08/22 17:40 Urine Nitrate Positive (Negative) H 10/08/22 17:40 Urine Bilirubin Neg (Negative) 10/08/22 17:40 Urine Urobilinogen Norm mg/dL (Negative) 10/08/22 17:40 Ur Leukocyte Esterase 2+ (Negative) H 10/08/22 17:40 Urine RBC 10-15 /hpf (0-2) H 10/08/22 17:40 Urine WBC 55-80 /hpf (0-5) H 10/08/22 17:40 Ur Squamous Epith Cells 0-4 /hpf (0-5) H 10/08/22 17:40 Amorphous Sediment Not Reportable 10/08/22 17:40 Urine Bacteria 4+ /hpf (NONE) H 10/08/22 17:40 Hepatitis A IgM Ab Non-reactive (Nonreactive) 10/08/22 13:55 Hep Bs Antigen Non-reactive (Nonreactive) 10/08/22 13:55 Hep B Core IgM Ab Non-reactive (Nonreactive) 10/08/22 13:55 Hepatitis C Antibody Non-reactive (Nonreactive) 10/08/22 13:55 EKG Data EKG 1: I personally reviewed and interpreted this EKG as follows: EKG interpretation date: 10/08/22 EKG interpretation time: 18:24 Interpretation: nsr hr [address] or t wave abnormalities qrs 104 qtc 456 Discharge Plan Discharge Patient Disposition: Xfer Short-Term Hosp Clinical Impression: Abdominal pain, Elevated bilirubin Condition: Stable Referrals: Bhaskar Alejandra MD [Primary Care Provider] - Patient Instructions: Abdominal Pain (ED) Coding Level of Care Code ED [employer] for Chg Fwd Exam Comprehensive
[2022-10-08] MEDS: sodium chloride 0.9% 1,000 ML 999 ML IV ×2 (14:51→17:32)
[2022-10-08] MEDS: ondansetron 2 mg/ML SDV 2 mL 4 MG IVP ×3 (14:54→22:36)
[2022-10-08] MEDS: morphine 4 mg/mL SDV 1 mL IVP ×3 (14:54→22:38)
--- NOTE | 2022-10-08 16:21 | CTR_ITS ---
PROCEDURE INFORMATION: Exam: CT Abdomen And Pelvis With Contrast Exam date and time: 10/08/2022 4:50 PM Age: 86 years old Clinical indication: Abdominal pain; Additional info: Abd pain TECHNIQUE: Imaging protocol: Computed tomography of the abdomen and pelvis with contrast. Radiation optimization: All CT scans at this facility use at least one of these dose optimization techniques: automated exposure control; mA and/or kV adjustment per patient size (includes targeted exams where dose is matched to clinical indication); or iterative reconstruction. Contrast material: OMNIPAQUE 350; Contrast volume: 75 ml; Contrast route: INTRAVENOUS (IV); Other protocol: This patient has received [address] and 0 known cardiac nuclear medicine studies in the 12 months prior to the current study. COMPARISON: US abdomen limited [id number] 10/08/2022 2:56 PM RADIATION DOSE METRICS: Total DLP (mGy-cm): 928.21 FINDINGS: Lungs: Bilateral dependent atelectasis versus infiltrate. Emphysematous changes. Heart: Cardiomegaly. Coronary arteries: Coronary artery atherosclerotic calcifications. Diaphragm: Small hiatal hernia. Liver: Normal. No mass. Gallbladder and bile ducts: Intrahepatic biliary dilation. Cholecystectomy. Pancreas: Normal. No ductal dilation. Spleen: Normal. No splenomegaly. Adrenal glands: Normal. No mass. Kidneys and ureters:Left kidney interpolar region poorly defined 2.4 cm low-density somewhat heterogeneous area, best seen series 8, image 33, perhaps reflecting an infectious process, however, other etiologies are not excluded please correlate clinically. Recommend non-emergent MRI without and with contrast or non-emergent CT without and with contrast. MRI is preferred for masses under 1.5 cm. Bilateral renal cysts, negative for follow up. Stomach and bowel: Diverticulosis without diverticulitis. Appendix: No evidence of appendicitis. Intraperitoneal space: Unremarkable. No free air. No significant fluid collection. Vasculature: Inferior vena cava filter. Proximal celiac and superior mesenteric artery atherosclerotic calcification with up to at least 50% luminal narrowing. Proximal bilateral renal artery atherosclerotic calcification with 80-90% luminal narrowing suspected with contrast seen distally. Lymph nodes: Unremarkable. No enlarged lymph nodes. Urinary bladder: Unremarkable as visualized. Reproductive: Small amount of fluid in the uterine cavity, consider further evaluation with nonemergent pelvic ultrasound given patient age. Bones/joints: Unremarkable. No acute fracture. Soft tissues: Unremarkable. CT/CT abdomen pelvis w con* [id number] IMPRESSION: 1. Left kidney interpolar region poorly defined 2.4 cm low-density somewhat heterogeneous area, best seen series 8, image 33, perhaps reflecting an infectious process, however, other etiologies are not excluded please correlate clinically. Recommend non-emergent MRI without and with contrast or non-emergent CT without and with contrast. MRI is preferred for masses under 1.5 cm. 2. Cardiomegaly. 3. Coronary artery atherosclerotic calcifications. 4. Bilateral dependent atelectasis versus infiltrate. 5. Intrahepatic biliary dilation. 6. Bilateral renal cysts, negative for follow up. 7. Diverticulosis without diverticulitis. 8. Small amount of fluid in the uterine cavity, consider further evaluation with nonemergent pelvic ultrasound given patient age. 9. Inferior vena cava filter. 10. Small hiatal hernia. 11. Proximal celiac and superior mesenteric artery atherosclerotic calcification with up to at least 50% luminal narrowing. 12. Proximal bilateral renal artery atherosclerotic calcification with 80-90% luminal narrowing suspected with contrast seen distally. 13. Emphysematous changes. 14. Cholecystectomy. COMMENTS: 1. Consistent with the [employer]'s Incidental Findings Committee white paper (J Am Sophia Radiol 2018): Any incidental renal lesion less than 1 cm or classified as too small to characterize, or any incidental cystic renal lesion characterized as simple-appearing, is likely benign. No follow-up imaging is recommended for these lesions per consensus recommendations based on imaging criteria. 2. For patients with an IVC filter, recommend assessment for a management plan for the patient's IVC filter. If there is no established management plan, recommend referral to an interventional clinician on a nonemergent basis for evaluation.
[2022-10-08] MEDS: iohexol 350 mg/mL 500 mL Btl (per mL) IV (16:51)
[2022-10-08 17:06] LABS: Hepatitis A Antibody IgM Non-Reactive (Nonreactive); Hepatitis B Core IgM Non-Reactive (Nonreactive); Hepatitis B Surface Antigen Non-Reactive (Nonreactive); Hepatitis C Virus Antibody Non-Reactive (Nonreactive)
--- NOTE | 2022-10-08 17:38 | MRR_ITS ---
PROCEDURE INFORMATION: Exam: MR Abdomen Without Contrast Exam date and time: 10/08/2022 7:00 PM Age: 86 years old Clinical indication: Abdominal pain; Prior surgery; Surgery date: 6+ months; Surgery type: Gallbladder; Additional info: Elevated lfts TECHNIQUE: Imaging protocol: Magnetic resonance imaging of the abdomen without contrast. COMPARISON: CT abdomen pelvis w con* [id number] 10/08/2022 4:50 PM FINDINGS: Liver: No mass. Gallbladder and bile ducts: Cholecystectomy. Dilatation of the intrahepatic bile ducts and common hepatic duct. There is possible narrowing or filling defect in the proximal common bile duct. The common bile duct is decompressed distally. Evaluation is limited by suboptimal image quality. Pancreas: Unremarkable. No ductal dilation. Spleen: Unremarkable. No splenomegaly. Adrenal glands: Unremarkable. No mass. Kidneys and ureters: 6.2 cm right renal cyst. Multiple small left renal cysts measuring up to 1.3 cm. No hydronephrosis. Stomach and bowel: Visualized stomach and intestines are unremarkable. Intraperitoneal space: No free fluid. Vasculature: Infrarenal IVC filter. Bones/joints: Unremarkable. Soft tissues: Unremarkable. MR/MR MRCP [id number] IMPRESSION: 1. Possible stricture or intraductal filling defect in the proximal common bile duct. There is dilatation of the intrahepatic bile ducts and common hepatic duct proximal to this point, and decompression of the common bile duct distally. Follow-up with ERCP is recommended. 2. Evaluation of the bile ducts is limited by suboptimal image quality. COMMENTS: Consistent with the [employer]'s Incidental Findings Committee white paper (J Am Sophia Radiol 2018): Any incidental renal lesion less than 1 cm or classified as too small to characterize, or any incidental cystic renal lesion characterized as simple-appearing, is likely benign. No follow-up imaging is recommended for these lesions per consensus recommendations based on imaging criteria.
[2022-10-08 18:05] LABS: Add Urine Microscopic? YES; Bilirubin Urine Neg (Negative); Blood Urine 3+ (Negative); Glucose Urine UA Norm (Normal); Ketones Urine 1+ (Negative); Leukocyte Esterase Urine 2+ (Negative); Nitrate Urine Positive (Negative); Protein Urine 2+ (Negative); Specific Gravity, Urine 1.015 (1.005-1.030); Urine Appearance Cloudy (CLEAR); Urine Color Yellow (Yellow); Urobilinogen Urine Norm (Negative); pH Urine 5 (5-7)
[2022-10-08 18:06] LABS: Add Urine Culture? Yes; Bacteria Urine 4+ /hpf; Squamous Epithelial Cell Urine 0-4 /hpf (0-5); WBC Urine 55-80 /hpf (0-5)
--- NOTE | 2022-10-08 18:08 | ECG_ITS ---
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 Measurements Intervals [place] Rate: 62 P: 51 [place]: 218 QRS: -7 QRSD: 104 T: 40 QT: 451 QTc: 460 Interpretive Statements SINUS RHYTHM WITH FIRST DEGREE AV BLOCK Compared to ECG 10/08/2022 14:02:42 First degree AV block now present Left-axis deviation no longer present Electronically Signed On 10-08-2022 23:43:04 C[employer]LL[employer]OR by Crystal Weems M.D. [id number]
--- NOTE | 2022-10-08 18:09 | PM.HP ---
Providers/Chief Complaint Primary Care Provider: Bhaskar Alejandra MD Chief Complaint: DIARRHEA/ NAUSEA History of Present Illness Aura Villalpando is a 86 year old female with a past medical history of atrial fibrillation, DVT, on Xarelto, history of PE, dyslipidemia, hypertension, who presents to [facility] due to complaints of headache. Patient currently is accompanied by son, she tells me that for the last 9 days she has been having frontal headaches, she tells her that they just came on without any triggers, no photophobia, some phonophobia, she also has been doing physical therapy through Dr. Gonzalez's office as she has been having a lot of neck pain, shoulder pain, and she has been noticing that her headaches are associated with exercises, and is also at the base of her neck as a trigger of her pain. Denies any nausea, no vomiting, no ataxia, no blurry vision, she is never had migraine headaches before, no recent stressors, she tells me that the headaches are primarily in the frontal part of her head. No weight loss, no fatigue. She denies any chest pain, no shortness of breath she is on 2 L, she is on 2 L. No fevers, no chills. She has had low-grade fevers in the emergency room nine 9.6. She appears jaundiced but does not recognize it, she does not know what jaundiced is, she denies any abdominal pain, no nausea, no vomiting, no diarrhea. No recent illness, no sick contacts, no recent travel. Denies frequent falls but her last fall was 3 months ago In the emergency room, she had an extensive evaluation, blood work showed leukocytosis with SANTA, creatinine 1.8, she had a UTI she was found to have a bili of 5.1, AST 53, ALT 42, alk phos of 169, her abdominal ultrasound showed mildly prominent and echogenic central bile ducts. She is status post postcholecystectomy, but did show intrahepatic biliary dilatation. Her hepatitis panel was unremarkable. ER if physician wanted me to admit her for possible viral infection, dehydration as an etiology. After examining patient, it seems as if this abdominal finding was more incidental, but seems more serious than initially thought, with findings of elevated bili, transaminitis elevated alk phos, and an ultrasound and CT scan findings, I am worried about an intrahepatic lesion or acute ascending cholangitis as an etiology behind the liver findings. I have recommended an urgent MRCP if MRCP shows any intrahepatic lesion or acute ascending cholangitis would then recommend GI consultation or transfer to higher level center. I have gone over this extensively with patient and son at bedside. They voiced understanding, all question answered agreed to proceed. She is already received Zosyn for her UTI. In terms of her headache, it seems like cervical neuralgia and tension headache. Her CT of her head was negative for any acute findings. But did show chronic lacunar infarcts. The other thought was could she have meningitis, she is alert oriented x3 she follows commands she is not very hard of hearing but she did not really have any meningeal signs. And it does seem like cervical neuralgia, possible cervical radiculopathy leading to her headache. I will do a cervical x-ray, to aid in the diagnosis. She was already given morphine without improvement. If MRCP comes back unremarkable, can consider anti-inflammatory medications. And consider further work-up, patient's son and and patient voiced understanding, all questions answered, agreed to proceed. For now we will hold patient in the emergency room until MRCP results come back and from there can decide if she needs to be transferred to tertiary level center or GI consultation versus being admitted here for management Review of Systems Const: Denies: fever(s), chills, fatigue or malaise Eyes: Denies: change in vision Card: Denies: chest pain or palpitations Resp: Denies: dyspnea, productive cough, non-productive cough or wheezing GI: Denies: abdominal pain, nausea, vomiting, hematemesis, diarrhea, constipation, hematochezia or melena : Denies: flank pain, dysuria or urinary frequency Musc: Denies: back pain Skin/Breast: Denies: rash Neuro: Reports: headache(s); Denies: numbness in extremities, weakness in extremities, lack of coordination, dizziness, vertigo, confusion or Slurred speech present Endo: Denies: polyuria Medications/Allergies Home Medications Medication Instructions Recorded Confirmed Last Taken Type cholecalciferol (vitamin D3) 25 1,000 unit PO DAILY 09/15/19 09/23/22 Unknown History mcg (1,000 unit) capsule cranberry extract 250 mg tablet mg PO DAILY 09/15/19 09/23/22 Unknown History ferrous sulfate 325 mg (65 mg 325 mg PO .every other day 09/15/19 09/23/22 Unknown History iron) tablet,delayed release omega-3 fatty acids 1,000 mg 1,000 mg PO DAILY 09/15/19 09/23/22 Unknown History capsule (Fish Oil Concentrate) rivaroxaban 15 mg tablet (Xarelto) 15 mg PO DAILY 09/15/19 09/23/22 Unknown History ascorbic acid (vitamin C) 500 mg 500 mg PO DAILY 03/28/20 09/23/22 Unknown History tablet atorvastatin 10 mg tablet 10 mg PO DAILY 03/28/20 09/23/22 Unknown History vitamin B complex 1 tab PO DAILY 03/28/20 09/23/22 Unknown History amlodipine 5 mg tablet 5 mg PO DAILY #90 tabs 06/24/22 09/23/22 Unknown Rx spironolactone 25 mg tablet 12.5 mg PO DAILY 06/24/22 09/23/22 Unknown History allopurinol 100 mg tablet See Rx Instructions .Route 07/02/22 09/23/22 Unknown Rx .COMPLEX #90 tabs tramadol 50 mg tablet 50 mg PO BID PRN 07/16/22 09/23/22 Unknown History carvedilol 25 mg tablet See Rx Instructions .Route 08/16/22 09/23/22 Unknown Rx .COMPLEX #180 tabs Allergies Allergy/AdvReac Type Severity Reaction Status Date / Time codeine Allergy Unknown vomiting Verified 09/23/22 15:27 PFSH Acute PFSH: Medical History Atherosclerotic heart disease Atrial fibrillation Chest pain Chronic intractable headache DVT (deep venous thrombosis) Dyslipidemia Essential hypertension Fatigue Hx of TIA (transient ischemic attack) and stroke Mixed hyperlipidemia Pulmonary acid aspiration syndrome Pulmonary embolism Pulmonary embolism Surgical History History of esophagogastroduodenoscopy (EGD) History of toe surgery Hx of cholecystectomy Hx of colonoscopy Family History Father Cancer Sister Cancer Other No family history of disorders Denies family history of Diabetes CAD (coronary artery disease) Clotting disorder Dementia Chronic kidney disease (CKD) Suicide Anesthesia complication Bleeding disorder Lung disease Stroke Social History Smoking and tobacco status: former smoker Alcohol intake: never Marital status: / Vitals/I&O/Wt Last Vital Signs Temp 99.7 F H 10/08/22 13:49 Pulse 64 10/08/22 17:36 Resp 18 10/08/22 14:54 BP 128/69 10/08/22 17:36 Pulse Ox 94 10/08/22 17:36 O2 Del Method 10/08/22 17:36 O2 Flow Rate 3 10/08/22 17:36 10/08/22 10/08/22 10/08/22 06:59 14:59 22:59 Intake Total 1000 / 1000 Balance 1000 / 1000 Weight last 48 hrs Weight 84.368 kg Physical Exam Const: COMMON NORMALS: no acute distress and patient oriented x3 HENMT: COMMON NORMALS: normocephalic Eye: COMMON NORMALS: Equal, round and reactive pupils present and EOMs intact bilaterally Neck/C-Spine: CERVICAL SPINE: Yes cervical ROM normal, Yes pain with cervical ROM and Yes Paracervical muscle tenderness OTHER: Kernig sign negative, Brudzinski sign negative Lymph: LYMPHATIC: no lymphadenopathy noted Resp: COMMON NORMALS: normal respiratory effort, No retractions, No use of accessory muscles and clear to auscultation bilaterally AUSCULTATION: clear to auscultation bilaterally Cardio: COMMON NORMALS: regular rate, regular rhythm, S1 normal heart sound present and S2 normal heart sound present RATE: regular rate RHYTHM: regular rhythm HEART SOUNDS: S1 normal heart sound present and S2 normal heart sound present GI: COMMON NORMALS: Normal to inspection, nondistended, normoactive bowel sounds present, Soft to palpation, non-tender and No hepatosplenomegaly present Extremity: COMMON NORMALS: no pedal edema Neuro: COMMON NORMALS: patient oriented x3, CN's II-XII intact bilaterally, moves all extremities and no focal motor deficits Psych: COMMON NORMALS: mental status grossly normal Data 10/08/22 13:55 10/08/22 13:55 A&P Assessment and plan (1) Hyperbilirubinemia: (2) Transaminitis: (3) Elevated alkaline phosphatase level: (4) Intrahepatic bile duct dilation: (5) Headache: (6) SANTA (acute kidney injury): (7) UTI (urinary tract infection): Plan In the emergency room, she had an extensive evaluation, blood work showed leukocytosis with SANTA, creatinine 1.8, she had a UTI she was found to have a bili of 5.1, AST 53, ALT 42, alk phos of 169, her abdominal ultrasound showed mildly prominent and echogenic central bile ducts. She is status post postcholecystectomy, but did show intrahepatic biliary dilatation. Her hepatitis panel was unremarkable. ER if physician wanted me to admit her for possible viral infection, dehydration as an etiology. After examining patient, it seems as if this abdominal finding was more incidental, but seems more serious than initially thought, with findings of elevated bili, transaminitis elevated alk phos, and an ultrasound and CT scan findings, I am worried about an intrahepatic lesion or acute ascending cholangitis as an etiology behind the liver findings. I have recommended an urgent MRCP if MRCP shows any intrahepatic lesion or acute ascending cholangitis would then recommend GI consultation or transfer to higher level center. I have gone over this extensively with patient and son at bedside. They voiced understanding, all question answered agreed to proceed. She is already received Zosyn for her UTI. In terms of her headache, it seems like cervical neuralgia and tension headache. Her CT of her head was negative for any acute findings. But did show chronic lacunar infarcts. The other thought was could she have meningitis, she is alert oriented x3 she follows commands she is not very hard of hearing but she did not really have any meningeal signs. And it does seem like cervical neuralgia, possible cervical radiculopathy leading to her headache. I will do a cervical x-ray, to aid in the diagnosis. She was already given morphine without improvement. If MRCP comes back unremarkable, can consider anti-inflammatory medications. And consider further work-up, patient's son and and patient voiced understanding, all questions answered, agreed to proceed. For now we will hold patient in the emergency room until MRCP results come back and from there can decide if she needs to be transferred to tertiary level center or GI consultation versus being admitted here for management Attestations Medical Necessity Statement*: Patient might be admitted to [facility] for headache, elevated transaminitis, hyperbilirubinemia or potentially transfer to tertiary level center awaiting MRCP in the emergency room, if she is admitted he will be outpatient with observation Coding Level of Care Code Acute Code for Chg Fwd Diagnoses Hyperbilirubinemia E80.6 Transaminitis R74.01 Elevated alkaline phosphatase level R74.8 Intrahepatic bile duct dilation K83.8 Headache R51.9 SANTA (acute kidney injury) N17.9 UTI (urinary tract infection) N39.0
--- NOTE | 2022-10-08 18:33 | XRR_ITS ---
PROCEDURE INFORMATION: Exam: XR Cervical Spine Exam date and time: 10/08/2022 7:35 PM Age: 86 years old Clinical indication: Neck pain TECHNIQUE: Imaging protocol: Radiologic exam of the cervical spine. Views: 2 or 3 views. COMPARISON: CT head wo con* [id number] 10/08/2022 2:14 PM FINDINGS: Bones/joints: The vertebral body stature is maintained. No fracture identified. Trace retrograde subluxation of C3 on C4. Trace anterior subluxation of C5 on C6. The facets are intact with hypertrophic degenerative changes. Severe disc space narrowing at C3-C4. Mild anterior endplate spurring at C4-C5. Soft tissues: Unremarkable. XR/XR cervical spine 3V* [id number] IMPRESSION: 1. No fracture or acute finding. 2. Degenerative changes, greatest at C3-C4.
[2022-10-08 18:53] LABS: Erythrocyte Sedimentation Rate 15 mm/hr (0-15)
[2022-10-08 19:05] LABS: NT Pro B Type Natriuretic Pept 2796 pg/mL (0-450); Procalcitonin 2.53 ng/mL (0-0.5); Thyroid Stimulating Hormone 1.38 uIU/mL (0.27-4.20)
[2022-10-08 19:16] LABS: C Reactive Protein 265.3 mg/L (0.0-4.9); Gamma Glutamyl Transferase 215 U/L (5-36)
[2022-10-08 19:17] LABS: Troponin(5th) Baseline 27 ng/L (0-10)
[2022-10-08 19:19] LABS: Ammonia 11 umol/L (11-51)
[2022-10-08 19:20] LABS: Lactic Sepsis W/Reflex 1.2 mmol/L (0.5-2.2)
[2022-10-08] MEDS: pantoprazole 40 mg SDV IVP (19:59)
[2022-10-08] MEDS: piperacillin-tazobactam 3.375 GM in sodium chloride 0.9% (plus) 50 ML IV (20:00)
--- NOTE | 2022-10-08 20:10 | ECG_ITS ---
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 Measurements Intervals [place] Rate: 64 P: 269 [place]: 154 QRS: 20 QRSD: 116 T: 50 QT: 466 QTc: 482 Interpretive Statements ECTOPIC ATRIAL RHYTHM MODERATE INTRAVENTRICULAR CONDUCTION DELAY [110+ ms QRS DURATION] PROLONGED QT INTERVAL Compared to ECG 10/08/2022 18:24:27 Ectopic atrial rhythm now present Intraventricular conduction delay now present Prolonged QT interval now present Sinus rhythm no longer present First degree AV block no longer present Electronically Signed On 10-08-2022 23:48:07 [employer] by Crystal Weems M.D. [id number]
[2022-10-08 20:52] LABS: Troponin 5 2HR 24.22 ng/L (0-10)
[2022-10-08 21:11] LABS: Troponin 5 2HR Delta -2.78 ABS# (0-10)
[2022-10-08] MEDS: LORazepam 2 mg/mL INJ 1 mL 0.5 MG IVP (23:17)
[2022-10-09 00:30] VITALS: BP 135/61; PULSE 74; RESP 20; O2SAT 92
== END 2022-10-09 00:33 | disposition short-term general hospital (02) ==
PROVIDERS: Family Medicine; Emergency Provider Emergency Medicine; PCP Family Medicine
DX: R10.9 Unspecified abdominal pain (principal); R17 Unspecified jaundice; I25.10 Atherosclerotic heart disease of native coronary artery without angina pectoris; I10 Essential (primary) hypertension; Z86.73 Personal history of transient ischemic attack (TIA), and cerebral infarction without residual deficits; E78.2 Mixed hyperlipidemia; Z87.891 Personal history of nicotine dependence; K57.90 Diverticulosis of intestine, part unspecified, without perforation or abscess without bleeding; K44.9 Diaphragmatic hernia without obstruction or gangrene
CPT/HCPCS: 36415; 70450; 71045; 72040; 74177; 74181; 76705; 80053; 80074; 81001; 82140; 82977; 83605; 83690; 83880; 84145; 84443; 84484; 85025; 85651; 86140; 87040; 87077; 87086; 87150; 87186; 87205; 93005; 96365; 96366; 96375; 96376; 99285; C9113; J2060; J2270; J2405; J2543; J7030; Q9967

== ENCOUNTER → 2022-10-19 13:32 | Outpatient (BNVA) | payer MEDICARE, MEDICAID, SELFPAY | PROVIDERS: PCP Family Medicine; Visit Provider Family Medicine | DX: K83.8 Other specified diseases of biliary tract (principal); R74.8 Abnormal levels of other serum enzymes; E80.6 Other disorders of bilirubin metabolism | CPT/HCPCS: 80053; 85025 ==

== ENCOUNTER 2022-10-22 21:33 | Emergency (ER) | payer MEDICARE, MEDICAID, SELFPAY ==
[2022-10-22 21:35] VITALS: BP 181/94; PULSE 73; RESP 16; O2SAT 92; BMI 32.9
--- NOTE | 2022-10-22 21:35 | XRR_ITS ---
PROCEDURE INFORMATION: Exam: XR Chest Exam date and time: 10/22/2022 9:50 PM Age: 86 years old Clinical indication: Pain; Chest pressure; Additional info: Cp TECHNIQUE: Imaging protocol: Radiologic exam of the chest. Views: 1 view. COMPARISON: CR XR chest 1V portable [id number] 10/08/2022 1:57 PM FINDINGS: Lungs: Minor bibasilar scarring. No consolidation. Pleural spaces: No pleural effusion. No pneumothorax. Heart/Mediastinum: No cardiomegaly. Bones/joints: Visualized osseous structures are intact. XR/XR chest 1V portable [id number] IMPRESSION: No acute findings.
--- NOTE | 2022-10-22 21:52 | W.ED.CHESTPA ---
HPI - Chest Pain General: Chief Complaint: Chest Pain Stated Complaint: CP Time Seen by Provider: 10/22/22 21:35 Source: patient and EMS Mode of arrival: EMS Limitations: no limitations History of Present Illness: 86-year-old female was seen here 2 weeks ago she did have a common bile duct blockage was sent to [place] had a ERCP and has been home for little over a week states that this evening over the last 2 hours she has been having a sharp pain in the center of her chest that goes to her right breast and into her abdomen states the pain is currently 1 out of 10 denies any cough dyspnea or vomiting. Associated symptoms: Deny abdominal pain, dyspnea, fever(s), nausea or vomiting Review of Systems Const: Denies: fever(s), chills, body aches or change in appetite Eyes: Denies: blurry vision or eye discomfort ENMT: Denies: throat pain or dental pain Card: Reports: chest pain Resp: Denies: dyspnea GI: Denies: abdominal pain, nausea, vomiting or diarrhea : Denies: dysuria Musc: Denies: neck pain or back pain Skin/Breast: Denies: rash Neuro: Denies: headache(s) Psych: Denies: depression Jayjay/Lymph: Denies: easy bruising All/Imm: Denies: urticaria PFSH ED PFSH: Medical History Atherosclerotic heart disease Atrial fibrillation Chest pain Chronic intractable headache DVT (deep venous thrombosis) Dyslipidemia Essential hypertension Fatigue Hx of TIA (transient ischemic attack) and stroke Mixed hyperlipidemia Pulmonary acid aspiration syndrome Pulmonary embolism Pulmonary embolism Surgical History History of esophagogastroduodenoscopy (EGD) History of toe surgery Hx of cholecystectomy Hx of colonoscopy Family History Father Cancer Sister Cancer Other No family history of disorders Denies family history of Diabetes CAD (coronary artery disease) Clotting disorder Dementia Chronic kidney disease (CKD) Suicide Anesthesia complication Bleeding disorder Lung disease Stroke Social History Smoking and tobacco status: former smoker Alcohol intake: never Marital status: / Physical Exam Const: COMMON NORMALS: no acute distress, patient oriented x3 and healthy appearing HENMT: COMMON NORMALS: normocephalic and atraumatic HEAD & SCALP: normocephalic and atraumatic Eye: COMMON NORMALS: Equal, round and reactive pupils present and EOMs intact bilaterally PUPIL: Yes Equal, round and reactive pupils present Neck/C-Spine: COMMON NORMALS: full ROM and supple Chest: COMMONS NORMALS: normal inspection of the chest and normal palpation of entire chest wall Resp: COMMON NORMALS: normal respiratory effort, No retractions, No use of accessory muscles and clear to auscultation bilaterally AUSCULTATION: clear to auscultation bilaterally Cardio: COMMON NORMALS: regular rate, regular rhythm and No murmurs present (Cardio) RATE: regular rate RHYTHM: regular rhythm GI: COMMON NORMALS: Normal to inspection, nondistended, normoactive bowel sounds present, Soft to palpation, non-tender and no masses PALPATION: Yes Soft to palpation Extremity: COMMON NORMALS: normal to inspection and full ROM Neuro: COMMON NORMALS: patient oriented x3, moves all extremities and no focal motor deficits Psych: COMMON NORMALS: mental status grossly normal, Normal thought process present and cooperative THOUGHT PROCESS: Normal thought process present Skin: COMMON NORMALS: no rashes or lesions noted and no wounds GENERAL SKIN EXAM: no rashes or lesions noted Course Vital Signs: Vital signs: Vital Signs Pulse Rate 66 10/23/22 00:00 Respiratory Rate 22 H 10/23/22 00:00 Blood Pressure 162/91 10/23/22 00:00 Pulse Oximetry 92 10/22/22 21:35 Oxygen Delivery Me thod 10/22/22 21:35 MDM - Chest Pain Medical Decision Making Patient presents here with chest pains atypical in nature her troponins here are negative no signs of acute coronary syndrome does have some lower abdominal pain she does have a UTI will prescribe antibiotic she is to follow-up with PCP and return if worsening. Lab Data 10/22/22 22:10 10/22/22 22:10 Radiology Impressions Chest X-Ray 10/22/22 21:35 IMPRESSION: No acute findings. Laboratory Results WBC 8.2 10^3/uL (4.0-10.0) 10/22/22 22:10 RBC 4.16 10^6/uL (4.1-5.3) 10/22/22 22:10 Hgb 12.9 g/dL (11.5-15.3) 10/22/22 22:10 Hct 39.4 % (37.0-47.0) 10/22/22 22:10 MCV 94.7 fl (81-99) 10/22/22 22:10 MCH 31.0 pg (28.0-34.0) 10/22/22 22:10 MCHC 32.7 g/dL (30.0-36.0) 10/22/22 22:10 RDW 13.9 % (12.1-15.1) 10/22/22 22:10 Plt Count 510 10^3/cmm (130-400) H 10/22/22 22:10 MPV 10.6 fL (7.4-10.4) H 10/22/22 22:10 Neut % (Auto) 59.0 % 10/22/22 22:10 Lymph % (Auto) 29.7 % 10/22/22 22:10 Prentiss % (Auto) 9.4 % 10/22/22 22:10 Eos % (Auto) 0.9 % 10/22/22 22:10 Baso % (Auto) 0.6 % 10/22/22 22:10 Neut # (Auto) 4.81 10^3/uL (1.8-7.7) 10/22/22 22:10 Lymph # (Auto) 2.4 10^3/uL (0.8-4.8) 10/22/22 22:10 Prentiss # (Auto) 0.8 10^3/uL (0.2-0.9) 10/22/22 22:10 Eos # (Auto) 0.1 10^3/uL (0.0-0.8) 10/22/22 22:10 Baso # (Auto) 0.1 10^3/uL (0.0-0.1) 10/22/22 22:10 Nucleated RBC % (auto) 0 % 10/22/22 22:10 Nucleated RBCs # 0.0 /100WBC 10/22/22 22:10 Sodium 138 mmol/L (136-145) 10/22/22 22:10 Potassium 4.4 mmol/L (3.5-5.1) 10/22/22 22:10 Chloride 100 mmol/L (98-107) 10/22/22 22:10 Carbon Dioxide 26 mmol/L (22-29) 10/22/22 22:10 Anion Gap 16.4 (5-19) 10/22/22 22:10 BUN 27 mg/dL (8-23) H 10/22/22 22:10 Creatinine 1.2 mg/dL (0.5-0.9) H 10/22/22 22:10 GFR Calculation Not Reportable 10/22/22 22:10 Glucose 116 mg/dL (65-115) H 10/22/22 22:10 Calculated Osmolality 292 mOsm/kg (285-295) 10/22/22 22:10 Calcium 9.3 mg/dL (8.5-10.5) 10/22/22 22:10 Total Bilirubin 0.5 mg/dL (0.15-1.2) 10/22/22 22:10 AST 15 U/L (0-32) 10/22/22 22:10 ALT 13 U/L (0-33) 10/22/22 22:10 Alkaline Phosphatase 143 U/L (35-105) H 10/22/22 22:10 Troponin T Baseline 26 ng/L (0-10) H 10/22/22 22:10 Troponin T 120 Minute 28.61 ng/L (0-10) H 10/23/22 00:17 Delta Troponin T 2.61 ABS# (0-10) 10/23/22 00:17 Total Protein 7.1 g/dL (6.6-8.7) 10/22/22 22:10 Albumin 3.6 g/dL (3.5-5.2) 10/22/22 22:10 Globulin 3.5 g/dL (1.3-4.6) 10/22/22 22:10 Lipase 80 U/L (13-60) H 10/22/22 22:10 Urine Color Yellow (Yellow) 10/23/22 00:52 Urine Appearance Clear (CLEAR) 10/23/22 00:52 Urine pH 5 (5-7) 10/23/22 00:52 Ur Specific Dyer 1.025 (1.005-1.030) 10/23/22 00:52 Urine Protein Neg (Negative) 10/23/22 00:52 Urine Glucose (UA) Norm (Normal) 10/23/22 00:52 Urine Ketones Negative (Negative) 10/23/22 00:52 Urine Blood Neg (Negative) 10/23/22 00:52 Urine Nitrate Positive (Negative) H 10/23/22 00:52 Urine Bilirubin Neg (Negative) 10/23/22 00:52 Urine Urobilinogen Norm mg/dL (Negative) 10/23/22 00:52 Ur Leukocyte Esterase Trace (Negative) H 10/23/22 00:52 Urine RBC 0-4 /hpf (0-2) H 10/23/22 00:52 Urine WBC 5-10 /hpf (0-5) H 10/23/22 00:52 Ur Squamous Epith Cells 0-4 /hpf (0-5) H 10/23/22 00:52 Calcium Oxalate Crystal 5-10 /hpf H 10/23/22 00:52 Amorphous Sediment Not Reportable 10/23/22 00:52 Urine Bacteria 3+ /hpf (NONE) H 10/23/22 00:52 EKG Data EKG 1: I personally reviewed and interpreted this EKG as follows: EKG interpretation date: 10/22/22 EKG interpretation time: 21:58 Interpretation: nsr hr [address] or t wave abnormalities qrs 103 qtc 430 Discharge Plan Discharge Patient Disposition: Home Clinical Impression: Chest pain, Acute cystitis Condition: Stable Prescriptions: New cephalexin 500 mg capsule 500 mg PO TID 7 Days Qty: 21 0RF No Action omega-3 fatty acids [Fish Oil Concentrate] 1,000 mg capsule 1,000 mg PO DAILY cranberry extract 250 mg tablet PO DAILY cholecalciferol (vitamin D3) 1,000 unit capsule 1,000 unit PO DAILY ferrous sulfate 325 mg (65 mg iron) tablet,delayed release (DR/EC) 325 mg PO .every other day Xarelto 15 mg tablet 15 mg PO DAILY ascorbic acid (vitamin C) 500 mg tablet 500 mg PO DAILY vitamin B complex Tablet 1 tab PO DAILY atorvastatin 10 mg tablet 10 mg PO DAILY spironolactone 25 mg tablet 12.5 mg PO DAILY amlodipine 5 mg tablet 5 mg PO DAILY Qty: 90 3RF tramadol 50 mg tablet 50 mg PO BID PRN allopurinol 100 mg tablet See Rx Instructions .ROUTE .COMPLEX Qty: 90 5RF Dose Instruction: TAKE 1 TABLET ONE TIME DAILY FOR GOUT Rx Instructions: TAKE 1 TABLET ONE TIME DAILY FOR GOUT carvedilol 25 mg tablet See Rx Instructions .ROUTE .COMPLEX Qty: 180 3RF Dose Instruction: TAKE 1 TABLET TWICE DAILY Rx Instructions: TAKE 1 TABLET TWICE DAILY Discharge Orders: Discharge ED (Routine); Ordered 10/23/22 Ordered By: Salo Merchant Referrals: Bhaskar Alejandra MD [Primary Care Provider] - 1-3 days Discharge Diet: Advance as tolerated Discharge Activity: Use walker/crutches as instructed Patient Instructions: Chest Pain (ED), Urinary Tract Infection in Women (ED) Coding Level of Care Code ED Maintenance Technician 3Rd Shift for Gayle Benitez
--- NOTE | 2022-10-22 21:58 | ECG_ITS ---
[facility] Test Date: 2022-10-22 Pat Name: Aura Villalpando Department: Room: Gender: Female Director Meetings: : 1935 Requested By: Salo Merchant Order Number: [id number] Mary Ann MD: Crystal Weems M.D. Measurements Intervals [place] Rate: 66 P: 40 RI: 214 QRS: -15 QRSD: 103 T: 38 QT: 416 QTc: 438 Interpretive Statements SINUS RHYTHM WITH FIRST DEGREE AV BLOCK Compared to ECG 10/08/2022 20:10:39 First degree AV block now present Ectopic atrial rhythm no longer present Intraventricular conduction delay no longer present Prolonged QT interval no longer present Electronically Signed On 10-23-2022 7:51:07 PLASTER DIE MAKER by Crystal Weems M.D. [id number]
[2022-10-22 22:12] VITALS: BP 143/92; PULSE 71; RESP 20
[2022-10-22 22:18] LABS: Basophils # 0.1 10^3/uL (0.0-0.1); Basophils % 0.6 %; Eosinophils # 0.1 10^3/uL (0.0-0.8); Eosinophils % 0.9 %; Hematocrit 39.4 % (37.0-47.0); Hemoglobin 12.9 g/dL (11.5-15.3); Lymphocytes # 2.4 10^3/uL (0.8-4.8); Lymphocytes % 29.7 %; Mean Corpuscular HGB Conc 32.7 g/dL (30.0-36.0); Mean Corpuscular Volume 94.7 fl (81-99); Mean Platelet Volume 10.6 fL (7.4-10.4); Monocytes # 0.8 10^3/uL (0.2-0.9); Monocytes % 9.4 %; Neutrophils # 4.81 10^3/uL (1.8-7.7); Nucleated Red Blood Cells % 0 %; Platelet Count 510 10^3/cmm (130-400); Red Blood Count 4.16 10^6/uL (4.1-5.3); Red Cell Distribution Width 13.9 % (12.1-15.1); White Blood Count 8.2 10^3/uL (4.0-10.0)
[2022-10-22 22:37] LABS: Troponin(5th) Baseline 26 ng/L (0-10)
[2022-10-22 22:47] LABS: Albumin Level 3.6 g/dL (3.5-5.2); Chloride 100 mmol/L (98-107); Sodium 138 mmol/L (136-145)
[2022-10-22 22:55] LABS: Alanine Aminotransferase 13 U/L (0-33); Alkaline Phosphatase 143 U/L (35-105); Anion Gap 16.4 (5-19); Aspartate Amino Transferase 15 U/L (0-32); Blood Urea Nitrogen 27 mg/dL (8-23); Calcium 9.3 mg/dL (8.5-10.5); Carbon Dioxide 26 mmol/L (22-29); Globulin 3.5 g/dL (1.3-4.6); Glucose 116 mg/dL (65-115); Lipase 80 U/L (13-60); Osmolality Calculated 292 mOsm/kg (285-295); Potassium 4.4 mmol/L (3.5-5.1); Total Bilirubin 0.5 mg/dL (0.15-1.2); Total Protein 7.1 g/dL (6.6-8.7)
--- NOTE | 2022-10-22 23:56 | ECG_ITS ---
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 Measurements Intervals [place] Rate: 65 P: 33 [place]: 210 QRS: -7 QRSD: 101 T: 33 QT: 418 QTc: 436 Interpretive Statements SINUS RHYTHM WITH FIRST DEGREE AV BLOCK Compared to ECG 10/22/2022 21:58:14 No significant changes Electronically Signed On 10-23-2022 16:21:24 WATER MAIN INSTALLER HELPER by Ashok Jimenez M.D. [email or web address] ServicesTrumba Corporationfisher-titus medical centerSpherical Systems/store/OM/[id number]
[2022-10-23] VITALS: BP 162/91; PULSE 66; RESP 22
[2022-10-23] MEDS: ondansetron 2 mg/ML SDV 2 mL 4 MG IVP (00:19)
[2022-10-23 00:37] LABS: Troponin 5 2HR 28.61 ng/L (0-10)
[2022-10-23 00:38] LABS: Troponin 5 2HR Delta 2.61 ABS# (0-10)
[2022-10-23 01:24] LABS: Glucose Urine UA Norm (Normal); Ketones Urine Negative (Negative); Protein Urine Neg (Negative); Specific Gravity, Urine 1.025 (1.005-1.030); Urine Appearance Clear (CLEAR); Urine Color Yellow (Yellow); pH Urine 5 (5-7)
[2022-10-23 01:25] LABS: Add Urine Culture? Yes; Add Urine Microscopic? YES; Bacteria Urine 3+ /hpf; Bilirubin Urine Neg (Negative); Blood Urine Neg (Negative); Leukocyte Esterase Urine Trace (Negative); Nitrate Urine Positive (Negative); RBC Urine 0-4 /hpf (0-2); Squamous Epithelial Cell Urine 0-4 /hpf (0-5); Urobilinogen Urine Norm (Negative)
[2022-10-23] MEDS: cefTRIAXone 1,000 MG in sodium chloride 0.9% (plus) 50 ML 100 MG IV (01:34)
[2022-10-23 01:39] VITALS: BP 125/79; PULSE 68; RESP 14; O2SAT 90
[2022-10-23 02:05] VITALS: BP 147/91; PULSE 72; RESP 19; O2SAT 90
== END 2022-10-23 02:10 | disposition home or self-care (01) ==
PROVIDERS: Emergency Provider Emergency Medicine; PCP Family Medicine
DX: R07.9 Chest pain, unspecified (principal); N30.00 Acute cystitis without hematuria; Z87.891 Personal history of nicotine dependence; I10 Essential (primary) hypertension; Z86.73 Personal history of transient ischemic attack (TIA), and cerebral infarction without residual deficits; E78.2 Mixed hyperlipidemia
CPT/HCPCS: 36415; 71045; 80053; 81001; 83690; 84484; 85025; 87077; 87086; 87186; 93005; 96365; 96375; 99285; J0696; J2405

== ENCOUNTER 2022-11-10 13:04 | Emergency (ER) | payer MEDICARE, MEDICAID, SELFPAY ==
[2022-11-10 13:07] VITALS: BP 145/72; PULSE 60; RESP 18; TEMP 36.6; O2SAT 94
[2022-11-10 13:34] VITALS: BP 126/79; PULSE 61; RESP 20; O2SAT 92
[2022-11-10 14:07] VITALS: BP 142/78; PULSE 56; RESP 15; O2SAT 95
--- NOTE | 2022-11-10 14:36 | PC.PHAR ---
Addendum entered by Ani Garcia 11/10/22 14:40: PT STATES SHE TAKES SPIRONOLACTONE 25MG QAM EXT MED HISTORY SHOWS LAST FILLED 06/26/22 90D/S 12.5MG QAM Original Note: PT STATES SHE TAKES CARE OF HER OWN MEDICATIONS-EXT MED HISTORY SHOWS LAST FILLED AMLODIPINE 5MG DAILY FILLED 06/25/22 90D/S AND CARVEDILOL 25MG BID FILLED 08/17/22 90D/S PT AND PTS SON STATES PT TAKES PRN STATES A FROM [facility] TOLD THEM TO TAKE PRN-PT STATES SHE HAS BEEN OUT OF HER ALLOPURINOL 100MG DAILY FOR ABOUT A WEEK-NOTES ARE MADE IN THE PHARMACY COMMENTS
[2022-11-10 14:51] VITALS: BP 137/81; PULSE 56; RESP 14; O2SAT 94
--- NOTE | 2022-11-10 15:08 | ED_ITS ---
HPI - Chest Pain General: Chief Complaint: Chest Pain Stated Complaint: ABD PAIN/ CHEST PAIN Time Seen by Provider: 11/10/22 13:39 History of Present Illness: 86-year-old female in with concerns of epigastric pain that occasionally will radiate up into her chest right now she is having some mild epigastric pain but is nonradiating. No new or different medications patient has had this for quite some time. She does not have any shortness of breath or diaphoresis she has not had any vomiting. She notes no palliative or provocative factors. No fever or chills. She denies any flank pain or dysuria. No lower abdominal pain. No other symptoms reported. Associated symptoms: Reports abdominal pain and nausea Review of Systems General: Reports: 10 or more systems reviewed and unremarkable except in HPI and below GI: Reports: abdominal pain, nausea and change in bowel habits; Denies: early satiety or constipation : Denies: flank pain or difficulty voiding PFSH ED PFSH: Medical History Atherosclerotic heart disease Atrial fibrillation Chest pain Chronic intractable headache DVT (deep venous thrombosis) Dyslipidemia Essential hypertension Fatigue Hx of TIA (transient ischemic attack) and stroke Mixed hyperlipidemia Pulmonary acid aspiration syndrome Pulmonary embolism Pulmonary embolism Surgical History History of esophagogastroduodenoscopy (EGD) History of toe surgery Hx of cholecystectomy Hx of colonoscopy Family History Father Cancer Sister Cancer Other No family history of disorders Denies family history of Diabetes CAD (coronary artery disease) Clotting disorder Dementia Chronic kidney disease (CKD) Suicide Anesthesia complication Bleeding disorder Lung disease Stroke Social History Smoking and tobacco status: former smoker Alcohol intake: never Marital status: / Physical Exam Const: COMMON NORMALS: no acute distress, patient oriented x3, alert and well nourished HENMT: COMMON NORMALS: normocephalic HEAD & SCALP: normocephalic Eye: COMMON NORMALS: Equal, round and reactive pupils present, EOMs intact bilaterally and conjunctivae normal CONJUNCTIVA: Yes conjunctivae normal PUPIL: Yes Equal, round and reactive pupils present Neck/C-Spine: COMMON NORMALS: full ROM, no lymphadenopathy, supple, no meningeal signs, no JVD and Thyroid normal THYROID: Thyroid normal Chest: COMMONS NORMALS: normal inspection of the chest and normal palpation of entire chest wall Resp: COMMON NORMALS: normal respiratory effort, No retractions, No use of accessory muscles, clear to auscultation bilaterally and percussion normal AUSCULTATION: clear to auscultation bilaterally PERCUSSION: percussion normal Cardio: COMMON NORMALS: no JVD OTHER: Regular rate and rhythm GI: COMMON NORMALS: Normal to inspection, nondistended, normoactive bowel sounds present, Soft to palpation, non-tender, No hepatosplenomegaly present, no masses and no bruits PALPATION: Yes Soft to palpation and Yes No hepatosplenomegaly present : COMMON NORMALS: Yes no CVA tenderness BLADDER/KIDNEY EXAM: Yes no CVA tenderness Back/Pelvis: COMMON NORMALS: no CVA tenderness Extremity: COMMON NORMALS: normal to inspection, full ROM, capillary refill normal, no joint enlargement, no clubbing, cyanosis or edema, no calf tenderness and no pedal edema Neuro: COMMON NORMALS: patient oriented x3 SENSORIUM/ORIENTATION: Yes alert MENINGEAL SIGNS: Yes no meningeal signs Skin: COMMON NORMALS: no rashes or lesions noted, turgor normal and no jaundice GENERAL SKIN EXAM: no rashes or lesions noted and turgor normal Course 2 Vital Signs: Vital signs: Vital Signs Temperature 97.9 F 11/10/22 13:07 Pulse Rate 66 11/10/22 17:06 Respiratory Rate 17 11/10/22 17:06 Blood Pressure 127/85 11/10/22 17:06 Pulse Oximetry 96 11/10/22 17:06 Oxygen Delivery Me thod 11/10/22 15:20 Oxygen Flow Rate 2 11/10/22 13:07 MDM - Chest Pain Medical Decision Making 86-year-old female in with a variety nonspecific subacute complaints. The patient does not appear to be in any significant distress right now. Differential includes hiatal hernia, gastritis, peptic ulcer disease, gastroesophageal reflux among others. I Laura give her a GI cocktail check some routine labs. Make further recommendations based on her clinical course and objective data. The patient felt significantly better after intervention in the emergency department all of her symptoms resolved. I recommended that she get started on a proton pump inhibitor and follow-up with primary care return precautions were discussed. Lab Data 11/10/22 13:10 11/10/22 13:10 Radiology Impressions Chest X-Ray 11/10/22 15:09 IMPRESSION: Cardiomegaly, lungs are clear. Laboratory Results WBC 5.8 10^3/uL (4.0-10.0) 11/10/22 13:10 RBC 4.48 10^6/uL (4.1-5.3) 11/10/22 13:10 Hgb 13.9 g/dL (11.5-15.3) 11/10/22 13:10 Hct 42.3 % (37.0-47.0) 11/10/22 13:10 MCV 94.4 fl (81-99) 11/10/22 13:10 MCH 31.0 pg (28.0-34.0) 11/10/22 13:10 MCHC 32.9 g/dL (30.0-36.0) 11/10/22 13:10 RDW 13.5 % (12.1-15.1) 11/10/22 13:10 Plt Count 262 10^3/cmm (130-400) 11/10/22 13:10 MPV 11.5 fL (7.4-10.4) H 11/10/22 13:10 Neut % (Auto) 45.5 % 11/10/22 13:10 Lymph % (Auto) 41.5 % 11/10/22 13:10 Gordon % (Auto) 11.1 % 11/10/22 13:10 Eos % (Auto) 1.2 % 11/10/22 13:10 Baso % (Auto) 0.5 % 11/10/22 13:10 Neut # (Auto) 2.63 10^3/uL (1.8-7.7) 11/10/22 13:10 Lymph # (Auto) 2.4 10^3/uL (0.8-4.8) 11/10/22 13:10 Gordon # (Auto) 0.6 10^3/uL (0.2-0.9) 11/10/22 13:10 Eos # (Auto) 0.1 10^3/uL (0.0-0.8) 11/10/22 13:10 Baso # (Auto) 0.0 10^3/uL (0.0-0.1) 11/10/22 13:10 Nucleated RBC % (auto) 0 % 11/10/22 13:10 Nucleated RBCs # 0.0 /100WBC 11/10/22 13:10 Sodium 137 mmol/L (136-145) 11/10/22 13:10 Potassium 5.0 mmol/L (3.5-5.1) 11/10/22 13:10 Chloride 99 mmol/L (98-107) 11/10/22 13:10 Carbon Dioxide 26 mmol/L (22-29) 11/10/22 13:10 Anion Gap 16.0 (5-19) 11/10/22 13:10 BUN 23 mg/dL (8-23) 11/10/22 13:10 Creatinine 1.3 mg/dL (0.5-0.9) H 11/10/22 13:10 GFR Calculation Not Reportable 11/10/22 13:10 Glucose 124 mg/dL (65-115) H 11/10/22 13:10 Calculated Osmolality 289 mOsm/kg (285-295) 11/10/22 13:10 Calcium 9.5 mg/dL (8.5-10.5) 11/10/22 13:10 Total Bilirubin 1.2 mg/dL (0.15-1.2) 11/10/22 13:10 AST 21 U/L (0-32) 11/10/22 13:10 ALT 14 U/L (0-33) 11/10/22 13:10 Alkaline Phosphatase 116 U/L (35-105) H 11/10/22 13:10 Troponin T Baseline 23 ng/L (0-10) H 11/10/22 13:10 Total Protein 6.1 g/dL (6.6-8.7) L 11/10/22 13:10 Albumin 3.5 g/dL (3.5-5.2) 11/10/22 13:10 Globulin 2.6 g/dL (1.3-4.6) 11/10/22 13:10 Lipase 45 U/L (13-60) 11/10/22 13:10 Discharge Plan Discharge Patient Disposition: Home Clinical Impression: Atypical chest pain, Abdominal pain, epigastric Condition: Stable Prescriptions: New omeprazole 40 mg capsule,delayed release(DR/EC) 40 mg PO DAILY 28 Days Qty: 30 0RF No Action cholecalciferol (vitamin D3) 1,000 unit capsule 1,000 unit PO DAILY ferrous sulfate 325 mg (65 mg iron) tablet,delayed release (DR/EC) 325 mg PO QAM Xarelto 15 mg tablet 15 mg PO BEDTIME ascorbic acid (vitamin C) 500 mg tablet 500 mg PO DAILY vitamin B complex Tablet 1 tab PO QAM atorvastatin 10 mg tablet 10 mg PO DAILY spironolactone 25 mg tablet 25 mg PO QAM tramadol 50 mg tablet 50 mg PO BID PRN (Reason: Pain) multivitamin Tablet 1 tab PO DAILY latanoprost 0.005 % drops 1 drp ophthalmic (eye) BEDTIME Rx Instructions: BOTH EYES Fish Oil Concentrate 1,000 mg Capsule 1,000 mg PO DAILY Tylenol Ex Str Rapid Release 500 mg Tablet 500 mg PO Q6H PRN (Reason: Pain) cranberry 500 mg Capsule 500 - 1,000 mg PO QAM allopurinol 100 mg tablet 100 mg PO BEDTIME carvedilol 25 mg tablet 25 mg PO BID PRN (Reason: Blood Pressure) amlodipine 5 mg tablet 5 mg PO DAILY PRN (Reason: Blood Pressure) Discharge Orders: Discharge ED (Routine); Ordered 11/10/22 Ordered By: Aniceto Lanza Referrals: Bhaskar Alejandra MD [Primary Care Provider] - Discharge Diet: Usual diet Discharge Activity: Resume usual activity Patient Instructions: Abdominal Pain (ED), Opioid Safety, Pain Management Activity Restrictions/Additional Instructions: 1. Small frequent meals, avoid aggravating foods. 2. Follow up with PCP next week for recheck. Coding Level of Care Code ED Assistant Teaching Professor for Gayle Benitez
--- NOTE | 2022-11-10 15:09 | XRR_ITS ---
PROCEDURE INFORMATION: Exam: XR Chest Exam date and time: 11/10/2022 4:00 PM Age: 86 years old Clinical indication: Other: Not specified; Patient HX: Chest/abd painras; Additional info: Cp TECHNIQUE: Imaging protocol: Radiologic exam of the chest. Views: 1 view. COMPARISON: CR (CHEST, ) 10/22/2022 9:50 PM FINDINGS: Lungs: Unremarkable. No consolidation. Pleural spaces: Unremarkable. No pleural effusion. No pneumothorax. Heart/Mediastinum: Cardiomegaly. Bones/joints: Unremarkable. XR/XR chest 1V portable [id number] IMPRESSION: Cardiomegaly, lungs are clear.
[2022-11-10 15:17] LABS: Basophils % 0.5 %; Eosinophils # 0.1 10^3/uL (0.0-0.8); Eosinophils % 1.2 %; Hematocrit 42.3 % (37.0-47.0); Hemoglobin 13.9 g/dL (11.5-15.3); Lymphocytes # 2.4 10^3/uL (0.8-4.8); Lymphocytes % 41.5 %; Mean Corpuscular HGB Conc 32.9 g/dL (30.0-36.0); Mean Corpuscular Volume 94.4 fl (81-99); Mean Platelet Volume 11.5 fL (7.4-10.4); Monocytes # 0.6 10^3/uL (0.2-0.9); Monocytes % 11.1 %; Neutrophils # 2.63 10^3/uL (1.8-7.7); Neutrophils % 45.5 %; Nucleated Red Blood Cells % 0 %; Platelet Count 262 10^3/cmm (130-400); Red Blood Count 4.48 10^6/uL (4.1-5.3); Red Cell Distribution Width 13.5 % (12.1-15.1); White Blood Count 5.8 10^3/uL (4.0-10.0)
[2022-11-10] MEDS: LORazepam 2 mg/mL INJ 1 mL 1 MG IVP (15:19)
[2022-11-10 15:20] VITALS: BP 159/83; PULSE 58; RESP 19; O2SAT 96
--- NOTE | 2022-11-10 15:26 | ECG_ITS ---
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 Measurements Intervals [place] Rate: 55 P: 35 [place]: 220 QRS: -7 QRSD: 102 T: 35 QT: 424 QTc: 408 Interpretive Statements SINUS BRADYCARDIA WITH FIRST DEGREE AV BLOCK Compared to ECG 10/22/2022 23:56:20 Sinus rhythm no longer present Electronically Signed On 11-11-2022 14:11:13 EXPLOSION WELDER by Arnoldo Chavez M.D. [email or web address] hospitalINTERNET BUSINESS TRADER/store/[id number]
[2022-11-10] MEDS: lidocaine 2% viscous 15 ML, aluminum-mag hydrox-simethicon 30 ML, sucralfate oral liq 1 GM PO (15:31)
[2022-11-10 15:33] LABS: Troponin(5th) Baseline 23 ng/L (0-10)
--- NOTE | 2022-11-10 15:34 | PC.NURSE ---
REPORT GIVEN TO VALERIO NICOLAS AT [id number]
[2022-11-10 15:40] LABS: Alanine Aminotransferase 14 U/L (0-33); Albumin Level 3.5 g/dL (3.5-5.2); Aspartate Amino Transferase 21 U/L (0-32); Blood Urea Nitrogen 23 mg/dL (8-23); Calcium 9.5 mg/dL (8.5-10.5); Carbon Dioxide 26 mmol/L (22-29); Globulin 2.6 g/dL (1.3-4.6); Lipase 45 U/L (13-60); Total Bilirubin 1.2 mg/dL (0.15-1.2); Total Protein 6.1 g/dL (6.6-8.7)
[2022-11-10 16:01] LABS: Alkaline Phosphatase 116 U/L (35-105); Chloride 99 mmol/L (98-107); Glucose 124 mg/dL (65-115); Osmolality Calculated 289 mOsm/kg (285-295); Sodium 137 mmol/L (136-145)
--- NOTE | 2022-11-10 16:43 | PC.NURSE ---
pt monitor alerting vfib two separate occasions. printed run and showed physician. physician confirmed artifact. pt stated she was moving around in bed.
[2022-11-10 17:06] VITALS: BP 127/85; PULSE 66; RESP 17; O2SAT 96
== END 2022-11-10 17:07 | disposition home or self-care (01) ==
PROVIDERS: Emergency Provider Family Medicine; PCP Family Medicine
DX: R10.13 Epigastric pain (principal); R07.89 Other chest pain; I10 Essential (primary) hypertension; I25.10 Atherosclerotic heart disease of native coronary artery without angina pectoris; I48.91 Unspecified atrial fibrillation
CPT/HCPCS: 71045; 80053; 83690; 84484; 85025; 93005; 96374; 99285; J2060

== ENCOUNTER 2022-12-23 14:45 | Outpatient (CLI) | payer MEDICARE, MEDICAID, SELFPAY ==
--- NOTE | 2022-12-23 14:57 | MM_ITS ---
WS: [id number] BILATERAL 3D TOMOSYNTHESIS DIGITAL SCREENING MAMMOGRAPHY WITH CAD CLINICAL INFORMATION: SCREENING HISTORY: Screening mammogram. No current complaints. COMPARISON: November 19, 2021 TECHNIQUE: Bilateral CC and MLO views. FINDINGS: The breasts are composed of heterogeneous fibroglandular density tissue, which can limit the detectio n of small underlying mass lesions. No suspicious mass, asymmetry, calcifications, or architectural d istortion. No evidence of malignancy. Vascular calcification. Punctate calcifications. Biopsy clip RI [facility] breast. MM/[place] [id number] IMPRESSION: BI-RADS: 2-Benign FOLLOW UP: 1 Year Follow-up Recommend return to annual screening mammography.
== END 2022-12-23 14:46 | disposition home or self-care (01) ==
LOC: RAD 14:47
PROVIDERS: PCP Family Medicine; Visit Provider Family Medicine
DX: Z12.31 Encounter for screening mammogram for malignant neoplasm of breast (principal)
CPT/HCPCS: 77063; 77067

== ENCOUNTER → 2023-03-23 15:55 | Outpatient (BNVA) | payer MEDICARE, MEDICAID, SELFPAY | PROVIDERS: PCP Family Medicine; Visit Provider Clinical Nurse Specialist Adult Health | DX: R31.9 Hematuria, unspecified (principal) | CPT/HCPCS: 81000 ==

== ENCOUNTER → 2023-03-24 10:39 | Outpatient (BNVA) | payer MEDICARE, MEDICAID, SELFPAY | PROVIDERS: PCP Family Medicine; Visit Provider Nurse Practitioner Family | DX: M17.11 Unilateral primary osteoarthritis, right knee (principal) | CPT/HCPCS: 20610; 99213; J1040; J2795; J3301 ==

== ENCOUNTER → 2023-05-06 10:39 | Outpatient (BNVA) | payer MEDICARE, MEDICAID, SELFPAY | PROVIDERS: PCP Family Medicine; Visit Provider Family Medicine | DX: I48.91 Unspecified atrial fibrillation (principal); I10 Essential (primary) hypertension; E78.5 Hyperlipidemia, unspecified; R30.0 Dysuria | CPT/HCPCS: 80053; 81000; 85025; 87077; 87086; 87184 ==

== ENCOUNTER 2023-12-31 13:41 | Outpatient (CLI) | payer MEDICARE, MEDICAID, SELFPAY ==
--- NOTE | 2023-12-31 13:53 | MM_ITS ---
WS: [id number] BILATERAL 3D TOMOSYNTHESIS DIGITAL SCREENING MAMMOGRAPHY WITH CAD CLINICAL INFORMATION: SCREENING HISTORY: Screening mammogram. No current complaints. COMPARISON: 12/23/2022 TECHNIQUE: Bilateral CC and MLO views. FINDINGS: The breasts are composed of heterogeneous fibroglandular density tissue, which can limit the detectio n of small underlying mass lesions. No suspicious mass, asymmetry, calcifications, or architectural d istortion. No evidence of malignancy. Lucent centered calcifications. Vascular calcifications. IMPRESSION: MM/[place] [id number] BI-RADS: 2-Benign FOLLOW UP: 1 Year Follow-up Recommend return to annual screening mammography.
== END 2023-12-31 13:42 | disposition home or self-care (01) ==
LOC: RAD 13:43
PROVIDERS: PCP Family Medicine; Visit Provider Family Medicine
DX: Z12.31 Encounter for screening mammogram for malignant neoplasm of breast (principal)
CPT/HCPCS: 77063; 77067

== ENCOUNTER → 2024-02-10 12:39 | Outpatient (BNVA) | payer MEDICARE, MEDICAID, SELFPAY | PROVIDERS: PCP Family Medicine; Visit Provider Family Medicine | DX: I48.11 Longstanding persistent atrial fibrillation (principal); E80.6 Other disorders of bilirubin metabolism; I10 Essential (primary) hypertension | CPT/HCPCS: 80053; 80061; 84550; 85025 ==

== ENCOUNTER 2024-04-17 11:40 | Emergency (ER) | payer MEDICARE, MEDICAID, SELFPAY ==
[2024-04-17 11:42] VITALS: BP 181/86; PULSE 54; RESP 90; TEMP 36.7; O2SAT 91; BMI 30.9
--- NOTE | 2024-04-17 11:42 | XR_ITS ---
WS: [id number] XR chest 1V portable [id number] REASON FOR EXAM: dyspnea/cough FINDINGS: Significant ectasia and tortuosity of the thoracic aorta. This abnormality appears more significant t nunez on the previous examination of 11/10/2022 with apparent rightward deviation of the trachea. There is mild to moderate cardiomegaly. Calcified granulomas disease bilaterally. No acute pulmonary parenchymal or pleural abnormality. Reticular interstitial lung opacities in the l ower lung hunter are most likely due to suboptimal inspiratory effort. Moderate degenerative spondylosis. 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 XR/XR chest 1V portable [id number] IMPRESSION: No acute pulmonary parenchymal or pleural abnormality. Tortuosity and ectasia of the thoracic aorta appear appears increased with trac heal deviation. The CT of the chest which has been ordered we will evaluate thi s more thoroughly.
--- NOTE | 2024-04-17 11:43 | ECG_ITS ---
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 Measurements Intervals [place] Rate: 51 P: 63 NM: 232 QRS: -25 QRSD: 108 T: 53 QT: 485 QTc: 448 Interpretive Statements SINUS BRADYCARDIA WITH FIRST DEGREE AV BLOCK BORDERLINE LEFT AXIS DEVIATION [QRS AXIS < -20] Compared to ECG 11/10/2022 15:26:08 No significant changes Electronically Signed On 04-17-2024 14:11:15 CDT by Ashok Jimenez M.D. [id number]
[2024-04-17 11:56] LABS: Basophils % 0.7 %; Eosinophils # 0.1 10^3/uL (0.0-0.8); Hematocrit 42.2 % (36-47); Lymphocytes # 2.9 10^3/uL (0.8-4.8); Lymphocytes % 51.8 %; Mean Corpuscular HGB Conc 33.2 g/dL (30-55); Mean Corpuscular Hemoglobin 30.6 pg (27-33); Mean Corpuscular Volume 92.3 fl (85-98); Mean Platelet Volume 11.1 fL (7.4-10.4); Monocytes # 0.5 10^3/uL (0.2-0.9); Neutrophils # 2.01 10^3/uL (1.8-7.7); Neutrophils % 36.1 %; Nucleated Red Blood Cells % 0 %; Platelet Count 265 10^3/cmm (157-399); Red Blood Count 4.57 10^6/uL (3.85-5.65); Red Cell Distribution Width 13.3 % (12.1-15.1); White Blood Count 5.56 10^3/uL (3.29-11.43)
[2024-04-17 12:13] LABS: Charge for UA Resulting for Rev
[2024-04-17 12:15] LABS: Bilirubin Urine 1+ (Negative); Blood Urine Negative (Negative); Glucose Urine UA Negative (Normal); Ketones Urine Trace (Negative); Leukocyte Esterase Urine 1+ (Negative); Nitrate Urine Negative (Negative); Protein Urine 2+ (Negative); Urine Appearance Turbid (CLEAR); Urine Color Dark Yellow (Yellow)
--- NOTE | 2024-04-17 12:16 | ED_ITS ---
HPI - Syncope 2 General: Chief Complaint: Syncope Stated Complaint: syncope Time Seen by Provider: 04/17/24 11:42 History of Present Illness: 80-year-old female presents to the emerg ency room after an episode of syncope. She was sitting on the toilet daughter lives with her and is her primary caregiver heard a noise went to the toilet she had had a bowel movement she was slumped on the toilet with her arm extended above her head. She was poorly responsive the daughter removed her from the toilet later on the floor she did become responsive shortly after that. She is mildly bradycardic on arrival here. She is requiring oxygen and had a brief hypoxic episode at home as well as she denies chest or abdominal pain. Associated symptoms: Deny abdominal pain, chest pain or fever(s) Review of Systems 2 Const: Denies: fever(s) or chills Card: Denies: chest pain Resp: Denies: dyspnea GI: Denies: abdominal pain : Denies: dysuria, urinary frequency or urinary urgency Musc: Denies: neck pain or back pain Skin/Breast: Denies: rash PFSH ED 2 PFSH: Medical History Hx of TIA (transient ischemic attack) and stroke Pulmonary embolism Pulmonary acid aspiration syndrome Dyslipidemia Chronic intractable headache Fatigue Mixed hyperlipidemia Essential hypertension Pulmonary embolism DVT (deep venous thrombosis) Atrial fibrillation Atherosclerotic heart disease Chest pain Surgical History Hx of colonoscopy History of esophagogastroduodenoscopy (EGD) History of toe surgery Hx of cholecystectomy Family History Father Cancer Sister Cancer Other No family history of disorders Denies family history of Diabetes CAD (coronary artery disease) Clotting disorder Dementia Chronic kidney disease (CKD) Suicide Anesthesia complication Bleeding disorder Lung disease Stroke Social History Smoking and tobacco/nicotine status: former use of tobacco/nicotine Alcohol intake: never Substance/Drug Use: never Marital status: / Physical Exam 2 Const: GENERAL APPEARANCE: cooperative and comfortable O RIENTATION/CONSCIOUSNESS: Yes awake, Yes oriented to person, Yes oriented to place and Yes oriented to time HENMT: COMMON NORMALS: normocephalic, atraumatic and hearing grossly normal bilaterally HEAD & SCALP: normocephalic and atraumatic Resp: COMMON NORMALS: normal respiratory effort, No retractions, No use of accessory muscles and clear to auscultation bilaterally AUSCULTATION: clear to auscultation bilaterally Cardio: COMMON NORMALS: regular rate, regular rhythm and No murmurs present (Cardio) RATE: regular rate RHYTHM: regular rhythm GI: COMMON NORMALS: Soft to palpation and No hepatosplenomegaly present A USCULTATION: Yes normoactive bowel sounds PALPATION: Yes Soft to palpation, No Tenderness to palpation present (GI), No Guarding due to palpation present (GI) and Yes No hepatosplenomegaly present Extremity: COMMON NORMALS: normal to inspection, capillary refill normal, no clubbing, cyanosis or edema, no calf tenderness and no pedal edema Neuro: SENSORIUM/ORIENTATION: Yes oriented to person, Yes oriented to place and Yes oriented to time Skin: COMMON NORMALS: no rashes or lesions noted GENERAL SKIN EXAM: no rashes or lesions noted Course 2 Vital Signs: Vital signs: Vital Signs Temperature 98.1 F 04/17/24 11:42 Pulse Rate 65 04/17/24 16:50 Respiratory Rate 16 04/17/24 16:50 Blood Pressure 195/92 04/17/24 16:50 Pulse Oximetry 94 04/17/24 16:50 Oxygen Delivery Me thod Room Air 04/17/24 15:34 Oxygen Flow Rate 3 04/17/24 11:42 MDM - Syncope Medical Decision Making No further symptoms. Labs and imaging reviewed patient does have a cystitis no leukocytosis. Blood pressure is mildly elevated but otherwise unremarkable she states she is feeling better. 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 Her alk phos is elevated, this has been chronic.she has no abdominal pain CT of her head shows old infarcts but nothing new she has no focal neurologic deficits at this time. Will discharge patient home treat for cystitis follow-up with her primary care doctor return if she has further problems Lab Data 04/17/24 11:48 04/17/24 11:48 Radiology Impressions Chest X-Ray 04/17/24 11:42 IMPRESSION: No acute pulmonary parenchymal or pleural abnormality. Tortuosity and ectasia of the thoracic aorta appear appears increased with tracheal deviation. The CT of the chest which has been ordered we will evaluate this more thoroughly. Chest CTA 04/17/24 12:31 IMPRESSION: 1. No pulmonary embolism. 2. Lung volumes are decreased due to poor inspiration. No pneumonia. 3. No adenopathy. 4. Mild aneurysmal dilatation ascending aorta, 4.3 cm. 5. Prior cholecystectomy. 6. Pneumobilia. Head CT 04/17/24 12:31 IMPRESSION: 1. No acute intracranial hemorrhage or edema. 2. Moderate atrophy with advanced small vessel ischemic disease. 3. Lacunar infarct in the RIGHT basal ganglia and a small infarct in the LEFT thalamus are unchanged. Laboratory Results WBC 5.56 10^3/uL (3.29-11.43) 04/17/24 11:48 RBC 4.57 10^6/uL (3.85-5.65) 04/17/24 11:48 Hgb 14.00 g/dL (11.27-16.99) 04/17/24 11:48 Hct 42.2 % (36-47) 04/17/24 11:48 MCV 92.3 fl (85-98) 04/17/24 11:48 MCH 30.6 pg (27-33) 04/17/24 11:48 MCHC 33.2 g/dL (30-55) 04/17/24 11:48 RDW 13.3 % (12.1-15.1) 04/17/24 11:48 Plt Count 265 10^3/cmm (157-399) 04/17/24 11:48 MPV 11.1 fL (7.4-10.4) H 04/17/24 11:48 Neut % (Auto) 36.1 % 04/17/24 11:48 Lymph % (Auto) 51.8 % 04/17/24 11:48 [place] % (Auto) 9.0 % 04/17/24 11:48 Eos % (Auto) 2.0 % 04/17/24 11:48 Baso % (Auto) 0.7 % 04/17/24 11:48 Neut # (Auto) 2.01 10^3/uL (1.8-7.7) 04/17/24 11:48 Lymph # (Auto) 2.9 10^3/uL (0.8-4.8) 04/17/24 11:48 [place] # (Auto) 0.5 10^3/uL (0.2-0.9) 04/17/24 11:48 Eos # (Auto) 0.1 10^3/uL (0.0-0.8) 04/17/24 11:48 Baso # (Auto) 0.0 10^3/uL (0.0-0.1) 04/17/24 11:48 Nucleated RBC % (auto) 0 % 04/17/24 11:48 Nucleated RBCs # 0.0 /100WBC 04/17/24 11:48 Sodium 136 mmol/L (136-145) 04/17/24 11:48 Potassium 4.5 mmol/L (3.5-5.1) 04/17/24 11:48 Chloride 99 mmol/L (98-107) 04/17/24 11:48 Carbon Dioxide 24 mmol/L (22-29) 04/17/24 11:48 Anion Gap 17.5 (5-19) 04/17/24 11:48 BUN 24 mg/dL (8-23) H 04/17/24 11:48 Creatinine 1.2 mg/dL (0.5-0.9) H 04/17/24 11:48 GFR Calculation Not Reportable 04/17/24 11:48 Glucose 125 mg/dL (65-115) H 04/17/24 11:48 Calculated Osmolality 288 mOsm/kg (285-295) 04/17/24 11:48 Calcium 9.7 mg/dL (8.5-10.5) 04/17/24 11:48 Total Bilirubin 1.2 mg/dL (0.15-1.2) 04/17/24 11:48 AST 26 U/L (0-32) 04/17/24 11:48 ALT 19 U/L (0-33) 04/17/24 11:48 Alkaline Phosphatase 158 U/L (35-105) H 04/17/24 11:48 Troponin T Baseline 22 ng/L (0-10) H 04/17/24 11:48 Troponin T 120 Minute 18.62 ng/L (0-10) H 04/17/24 14:38 Delta Troponin T -3.38 ABS# (0-10) L 04/17/24 14:38 Total Protein 6.2 g/dL (6.6-8.7) L 04/17/24 11:48 Albumin 3.8 g/dL (3.5-5.2) 04/17/24 11:48 Globulin 2.4 g/dL (1.3-4.6) 04/17/24 11:48 Urine Color Dark yellow (Yellow) A 04/17/24 12:02 Urine Appearance Turbid (CLEAR) A 04/17/24 12:02 Urine pH 6.0 (5-7) 04/17/24 12:02 Ur Specific [place] 1.020 (1.005-1.030) 04/17/24 12:02 Urine Protein 2+ (Negative) A 04/17/24 12:02 Urine Glucose (UA) Negative (Normal) 04/17/24 12:02 Urine Ketones Trace (Negative) 04/17/24 12:02 Urine Blood Negative (Negative) 04/17/24 12:02 Urine Nitrate Negative (Negative) 04/17/24 12:02 Urine Bilirubin 1+ (Negative) H 04/17/24 12:02 Urine Urobilinogen 1.0 mg/dL (Negative) 04/17/24 12:02 Ur Leukocyte Esterase 1+ (Negative) A 04/17/24 12:02 Urine RBC 3-5 /hpf (0-2) 04/17/24 12:02 Urine WBC 51-100 /hpf (0-5) H 04/17/24 12:02 Ur Squamous Epith Cells 51-100 /hpf (0-5) 04/17/24 12:02 Amorphous Sediment Not Reportable 04/17/24 12:02 Urine Bacteria 4+ /hpf (NONE) H 04/17/24 12:02 Hyaline Casts 6.17 /lpf 04/17/24 12:02 All radiology interpretation(s) finalized by discharge Discharge Plan Discharge Patient Disposition: Home Clinical Impression: Cystitis, Syncope, vasovagal Condition: Stable Prescriptions: New cefdinir 300 mg capsule 300 mg PO BID 10 Days Qty: 20 0RF No Action cholecalciferol (vitamin D3) 1,000 unit capsule 1,000 unit PO QPM ferrous sulfate 325 mg (65 mg iron) tablet,delayed release (DR/EC) 325 mg PO QAM ascorbic acid (vitamin C) 500 mg tablet 500 mg PO QAM vitamin B complex Tablet 1 tab PO QAM tramadol 50 mg tablet 50 mg PO BID PRN (Reason: Pain) Qty: 60 5RF multivitamin Tablet 1 tab PO QAM omega-3 fatty acids [Fish Oil Concentrate] 1,000 mg Capsule 1,000 mg PO QPM acetaminophen [Tylenol Ex Str Rapid Release] 500 mg Tablet 500 mg PO Q6H PRN (Reason: Pain) cranberry 500 mg Capsule 500 - 1,000 mg PO QAM amlodipine 5 mg tablet 5 mg PO QPM PRN (Reason: Blood Pressure) Calcium + D 600 mg-5 mcg (200 unit) Tablet 1 tab PO QAM zinc gluconate 50 mg Tablet 50 mg PO QPM vitamin E 268 mg (400 unit) Capsule 268 mg PO QPM carvedilol 25 mg tablet 25 mg PO BID atorvastatin 10 mg tablet 10 mg PO QPM allopurinol 100 mg tablet 100 mg PO QPM omeprazole 40 mg capsule,delayed release(DR/EC) 40 mg PO QAM PRN (Reason: Acid Reflux) spironolactone 25 mg tablet 12.5 mg PO DAILY Xarelto 15 mg tablet 15 mg PO DAILY Discharge Orders: Discharge ED (Routine); Ordered 04/17/24 Ordered By: Mohamud Naik Referrals: Bhaskar Alejandra MD [Primary Care Provider] - Discharge Diet: Usual diet Discharge Activity: Resume usual activity Patient Instructions: Opioid Safety, Pain Management Activity Restrictions/Additional Instructions: Thank you for choosing [facility] for your healthcare needs today. It is very important that you follow up as instructed or that you return to the Emergency Department should you have concerns or if your condition changes or worsens in any way. You were seen today after syncopal episode. Laboratory test showed normal white count kidney function is at your usual level. Your blood pressure was actually somewhat elevated in the emergency room your cardiac enzymes were not elevated your EKG did not show any acute changes your urine did show signs of cystitis. Suspect the syncopal episode may have been precipitated by Valsalva maneuver on the toilet. We also did a CTA of her chest there were no clinically significant abnormalities on this. Recommend he follow-up with your doctor within the next week. You are given a prescription for the oral antibiotics for the bladder infection Coding Level of Care Code ED Face Boss for Gayle Benitez
[2024-04-17 12:19] LABS: Alanine Aminotransferase 19 U/L (0-33); Albumin Level 3.8 g/dL (3.5-5.2); Alkaline Phosphatase 158 U/L (35-105); Aspartate Amino Transferase 26 U/L (0-32); Blood Urea Nitrogen 24 mg/dL (8-23); Calcium 9.7 mg/dL (8.5-10.5); Carbon Dioxide 24 mmol/L (22-29); Chloride 99 mmol/L (98-107); Creatinine Clr Calc Pharmacy 32.3272; Globulin 2.4 g/dL (1.3-4.6); Glucose 125 mg/dL (65-115); Osmolality Calculated 288 mOsm/kg (285-295); Sodium 136 mmol/L (136-145); Total Bilirubin 1.2 mg/dL (0.15-1.2); Total Protein 6.2 g/dL (6.6-8.7)
[2024-04-17 12:19] LABS: Bacteria Urine 4+ /hpf; Hyaline Casts Urine 6.17 /lpf; Squamous Epithelial Cell Urine 51-100 /hpf (0-5); WBC Urine 51-100 /hpf (0-5)
[2024-04-17 12:21] LABS: Anion Gap 17.5 (5-19); Potassium 4.5 mmol/L (3.5-5.1); Troponin(5th) Baseline 22 ng/L (0-10)
--- NOTE | 2024-04-17 12:31 | CT_ITS ---
WS: [id number] CT HEAD NONCONTRAST HISTORY: AMS/loss of consciousness TECHNIQUE: Contiguous axial imaging performed through the brain in 2.5 mm imaging. Bone and soft tiss ue windows. Sagittal and coronal reformats reviewed. All CT scans at [facility] use at least one of these dose optimization techniques: automated exposure control; mA and/or kV adjustment per pa tient size (includes targeted exams where dose is matched to clinical indication); or iterative recon struction. DLP: 1031.08 mGy.cm COMPARISON: 10/08/2022 Moderate volume loss. There is extensive low attenuation throughout the white matter which is similar to the prior study. Small infarct LEFT thalamus. There is an additional lacunar infarct in the RIGHT basal ganglia. No acute hemorrhage. Ventricles: Normal size with no hydrocephalus. Paranasal sinuses: Small amount of fluid in the LEFT maxillary sinus. Mucous retention cyst or polyp sphenoid sinus. Mastoid air cells: Well pneumatized. Calvarium and scalp: Skull is intact with no soft tissue edema or swelling. CT/CT head wo con* [id number] IMPRESSION: 1. No acute intracranial hemorrhage or edema. 2. Moderate atrophy with advanced small vessel ischemic disease. 3. Lacunar infarct in the RIGHT basal ganglia and a small infarct in the LEFT thalamus are unchanged.
--- NOTE | 2024-04-17 12:31 | CT_ITS ---
WS: [id number] CT CHEST ANGIOGRAPHY WITH REFORMATS HISTORY: hypoxia TECHNIQUE: Contiguous axial images are obtained through the chest during arterial injection of intrav enous contrast. Images are reconstructed to evaluate the pulmonary arteries. MIP imaging also reviewe d. All CT scans at [facility] use at least one of these dose optimization techniques: automat ed exposure control; mA and/or kV adjustment per patient size (includes targeted exams where dose is matched to clinical indication); or iterative reconstruction. CONTRAST: Omnipaque 350; 100 mL IV. DLP: 336.51 mGy.cm COMPARISON: 05/05/2014 Good opacification of the pulmonary arteries. No pulmonary embolism is identified. There are no filli ng defects through the segmental and some of the subsegmental branches. Pulmonary artery size is equa l to the aorta. Moderate atherosclerosis thoracic aorta. Mild aneurysmal dilatation ascending aorta t o 4.3 cm. Scattered plaque. Heart is moderately enlarged. No RIGHT heart strain. Decreased lung volumes. There is mild hazy attenuation and diffuse pulmonary cysts. Similar findings noted on the prior study. The dependent changes would probably improve with better inspiratory effort . No significant effusion. No mediastinal or hilar adenopathy. Bovine arch. Small hiatal hernia. Pneumobilia. Prior cholecystectomy. No adrenal mass. Moderate thoracic spondylos is. CT/CT angio chest PE protcl [id number] IMPRESSION: 1. No pulmonary embolism. 2. Lung volumes are decreased due to poor inspiration. No pneumonia. 3. No adenopathy. 4. Mild aneurysmal dilatation ascending aorta, 4.3 cm. 5. Prior cholecystectomy. 6. Pneumobilia.
[2024-04-17 12:35] LABS: Add Urine Culture? No
[2024-04-17] MEDS: iohexol 350 mg/mL 500 mL Btl (per mL) IV (13:17)
--- NOTE | 2024-04-17 13:43 | ECG_ITS ---
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 Measurements Intervals [place] Rate: 53 P: 80 FL: 229 QRS: -14 QRSD: 106 T: 68 QT: 474 QTc: 447 Interpretive Statements SINUS BRADYCARDIA WITH FIRST DEGREE AV BLOCK Compared to ECG 04/17/2024 11:50:35 No significant changes Electronically Signed On 04-17-2024 14:17:32 CDT by Ashok Jimenez M.D. [id number]
[2024-04-17 15:12] LABS: Troponin 5 2HR 18.62 ng/L (0-10)
[2024-04-17 15:18] LABS: Troponin 5 2HR Delta -3.38 ABS# (0-10)
[2024-04-17] MEDS: cefTRIAXone 1,000 mg SDV 1000 MG IVP (15:32)
[2024-04-17 15:34] VITALS: BP 169/78; PULSE 61; O2SAT 94
[2024-04-17 16:50] VITALS: BP 195/92; PULSE 65; RESP 16; O2SAT 94
== END 2024-04-17 16:52 | disposition home or self-care (01) ==
PROVIDERS: Emergency Provider Family Medicine; PCP Family Medicine
DX: R55 Syncope and collapse (principal); N30.90 Cystitis, unspecified without hematuria
CPT/HCPCS: 36415; 70450; 71045; 71275; 80053; 81003; 81015; 84484; 85025; 87040; 93005; 96374; 99285; J0696; Q9967

== ENCOUNTER → 2024-06-25 11:48 | Outpatient (BNVA) | payer MEDICARE, MEDICAID, SELFPAY | PROVIDERS: PCP Family Medicine | DX: R30.0 Dysuria (principal) | CPT/HCPCS: 81000; 87086 ==

== ENCOUNTER 2024-07-03 04:41 | Emergency (ER) | payer MEDICARE, MEDICAID, SELFPAY ==
[2024-07-03] VITALS (10 sets, daily range): BP systolic 155–215; BP diastolic 77–89; PULSE 50–64; RESP 14–20; TEMP 35.8; O2SAT 90–96; BMI 30.1
--- NOTE | 2024-07-03 04:45 | ECG_ITS ---
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
--- NOTE | 2024-07-03 04:45 | ECG_ITS ---
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
--- NOTE | 2024-07-03 04:49 | XRR_ITS ---
PROCEDURE INFORMATION: Exam: XR Chest Exam date and time: 07/03/2024 4:52 AM Age: 88 years old Clinical indication: Chest pressure; Patient HX: C/O chest pain with hypertension TECHNIQUE: Imaging protocol: Radiologic exam of the chest. Views: 1 view. COMPARISON: CT angio chest PE protcl [id number] 04/17/2024 1:12 PM FINDINGS: Lungs: Unremarkable. No consolidation. Pleural spaces: Unremarkable. No pleural effusion. No pneumothorax. Heart/Mediastinum: The heart is borderline enlarged. There is calcified plaque involving the aorta. Bones/joints: Unremarkable. XR/XR chest 1V portable [id number] IMPRESSION: 1. Borderline cardiomegaly.
[2024-07-03] MEDS: cloNIDine 0.1 mg Tablet PO (04:54)
[2024-07-03 05:08] LABS: Basophils % 0.6 %; Eosinophils # 0.1 10^3/uL (0.0-0.8); Eosinophils % 1.5 %; Hematocrit 44.9 % (36-47); Lymphocytes # 3.1 10^3/uL (0.8-4.8); Lymphocytes % 48.2 %; Mean Corpuscular Hemoglobin 30.6 pg (27-33); Mean Corpuscular Volume 92.8 fl (85-98); Mean Platelet Volume 10.5 fL (7.4-10.4); Monocytes # 0.6 10^3/uL (0.2-0.9); Monocytes % 9.2 %; Neutrophils % 40.2 %; Nucleated Red Blood Cells % 0 %; Platelet Count 234 10^3/cmm (157-399); Red Blood Count 4.84 10^6/uL (3.85-5.65); Red Cell Distribution Width 13.4 % (12.1-15.1); White Blood Count 6.49 10^3/uL (3.29-11.43)
--- NOTE | 2024-07-03 05:09 | W.ED.RECABL ---
Documented by User: Melvin Reed MD 07/03/24 05:12 HPI - Recheck/Abnormal Lab/Rx General: Chief Complaint: Recheck/Abnormal Lab/Rx Stated Complaint: HTN & Chest Pain Time Seen by Provider: 07/03/24 04:43 History of Present Illness: This patient is an 88-year-old white female who presents to the emergency department with hypertension and dizziness. Patient states she woke up this morning and felt somewhat dizzy and weak. She checked her blood pressure and it was 200s over 100s. She does also have some mild chest discomfort. No shortness of breath. Patient thinks she may have been getting her medications mixed up. Related Data Home Medications Medication Instructions Recorded Confirmed cholecalciferol (vitamin D3) 25 1,000 unit PO QPM 09/15/19 06/25/24 mcg (1,000 unit) capsule ferrous sulfate 325 mg (65 mg 325 mg PO QAM 09/15/19 06/25/24 iron) tablet,delayed release ascorbic acid (vitamin C) 500 mg 500 mg PO QAM 03/28/20 06/25/24 tablet vitamin B complex 1 tab PO QAM 03/28/20 06/25/24 acetaminophen 500 mg tablet 500 mg PO Q6H PRN Pain 11/10/22 06/25/24 cranberry 500 mg capsule 500 - 1,000 mg PO QAM 11/10/22 06/25/24 multivitamin 1 tab PO QAM 11/10/22 06/25/24 omega-3 fatty acids 1,000 mg 1,000 mg PO QPM 11/10/22 06/25/24 capsule allopurinol 100 mg tablet 100 mg PO QPM 04/17/24 06/25/24 atorvastatin 10 mg tablet 10 mg PO QPM 04/17/24 06/25/24 calcium 600 mg (as 1 tab PO QAM 04/17/24 06/25/24 carbonate)-vitamin D3 5 mcg (200 unit) tablet carvedilol 25 mg tablet 25 mg PO BID 04/17/24 06/25/24 omeprazole 40 mg capsule,delayed 40 mg PO QAM PRN Acid Reflux 04/17/24 06/25/24 release rivaroxaban 15 mg tablet (Xarelto) 15 mg PO DAILY 04/17/24 06/25/24 spironolactone 25 mg tablet 12.5 mg PO DAILY 04/17/24 06/25/24 vitamin E 268 mg (400 unit) capsule 268 mg PO QPM 04/17/24 06/25/24 zinc gluconate 50 mg tablet 50 mg PO QPM 04/17/24 06/25/24 Previous Rx's Medication Instructions Recorded tramadol 50 mg tablet 50 mg PO BID PRN Pain #60 tabs 04/17/24 cephalexin 500 mg tablet 500 mg PO BID 7 days #14 tabs 06/25/24 amlodipine 5 mg tablet 10 mg (2 x 5 mg) PO QPM PRN Blood 07/03/24 Pressure #30 tabs Allergies Allergy/AdvReac Type Severity Reaction Status Date / Time codeine Allergy Unknown vomiting Verified 06/25/24 10:22 Review of Systems General: Reports: 10 or more systems reviewed and unremarkable except in HPI and below Card: Reports: chest pain Neuro: Reports: dizziness [facility] PFSH: Medical History Hx of TIA (transient ischemic attack) and stroke Pulmonary embolism Pulmonary acid aspiration syndrome Dyslipidemia Chronic intractable headache Fatigue Mixed hyperlipidemia Essential hypertension Pulmonary embolism DVT (deep venous thrombosis) Atrial fibrillation Atherosclerotic heart disease Chest pain Surgical History Hx of colonoscopy History of esophagogastroduodenoscopy (EGD) History of toe surgery Hx of cholecystectomy Family History Father Cancer Sister Cancer Other No family history of disorders Denies family history of Diabetes CAD (coronary artery disease) Clotting disorder Dementia Chronic kidney disease (CKD) Suicide Anesthesia complication Bleeding disorder Lung disease Stroke Social History Smoking and tobacco/nicotine status: never used tobacco/nicotine Alcohol intake: never Substance/Drug Use: never Marital status: / Physical Exam Const: COMMON NORMALS: no acute distress, patient oriented x3 and no limitations GENERAL APPEARANCE: cooperative HENMT: COMMON NORMALS: normocephalic, atraumatic, Normal nasal mucous membranes and turbinates present, moist oral mucous membranes and oropharynx normal HEAD & SCALP: normal to inspection, normocephalic and atraumatic FACE & SINUS: normal facial exam NOSE: Normal nasal mucous membranes and turbinates present Eye: COMMON NORMALS: Equal, round and reactive pupils present, EOMs intact bilaterally and conjunctivae normal GENERAL EYE: appearance normal, both eyes and all related structures CONJUNCTIVA: Yes conjunctivae normal PUPIL: Yes Equal, round and reactive pupils present Neck/C-Spine: COMMON NORMALS: supple and no JVD Chest: COMMONS NORMALS: normal inspection of the chest Resp: COMMON NORMALS: normal respiratory effort and clear to auscultation bilaterally AUSCULTATION: clear to auscultation bilaterally Cardio: COMMON NORMALS: no JVD, regular rate, regular rhythm, No gallops present (Cardio), No murmurs present (Cardio) and No rub (Cardio) RATE: regular rate RHYTHM: regular rhythm GI: COMMON NORMALS: Normal to inspection, nondistended, normoactive bowel sounds present, Soft to palpation and non-tender AUSCULTATION: Yes normoactive bowel sounds PALPATION: Yes Soft to palpation : COMMON NORMALS: Yes no CVA tenderness BLADDER/KIDNEY EXAM: Yes no CVA tenderness Back/Pelvis: COMMON NORMALS: no CVA tenderness and thoracic and lumbar spine normal to inspection Extremity: COMMON NORMALS: normal to inspection Neuro: COMMON NORMALS: patient oriented x3 and CN's II-XII intact bilaterally Psych: COMMON NORMALS: mental status grossly normal, Normal thought process present and cooperative THOUGHT PROCESS: Normal thought process present Skin: COMMON NORMALS: no rashes or lesions noted, turgor normal and no jaundice GENERAL SKIN EXAM: no rashes or lesions noted and turgor normal Course Vital Signs: Vital signs: Vital Signs Temperature 96.4 F L 07/03/24 04:41 Pulse Rate 52 L 07/03/24 07:00 Respiratory Rate 16 07/03/24 07:00 Blood Pressure 167/84 07/03/24 07:00 Pulse Oximetry 90 07/03/24 07:00 Oxygen Delivery Me thod Room Air 07/03/24 05:32 Oxygen Flow Rate 2 07/03/24 07:00 MDM - Recheck/Abnormal Lab/Rx Medical Decision Making Blood pressure upon arrival was 215/84. Patient given 0.1 mg of clonidine p.o. EKG reveals sinus rhythm with no ST segment abnormalities. Chest x-ray normal. CBC normal. Lab Data 07/03/24 04:58 07/03/24 04:58 Radiology Impressions Chest X-Ray 07/03/24 04:49 IMPRESSION: 1. Borderline cardiomegaly. Laboratory Results WBC 6.49 10^3/uL (3.29-11.43) 07/03/24 04:58 RBC 4.84 10^6/uL (3.85-5.65) 07/03/24 04:58 Hgb 14.80 g/dL (11.27-16.99) 07/03/24 04:58 Hct 44.9 % (36-47) 07/03/24 04:58 MCV 92.8 fl (85-98) 07/03/24 04:58 MCH 30.6 pg (27-33) 07/03/24 04:58 MCHC 33.0 g/dL (30-55) 07/03/24 04:58 RDW 13.4 % (12.1-15.1) 07/03/24 04:58 Plt Count 234 10^3/cmm (157-399) 07/03/24 04:58 MPV 10.5 fL (7.4-10.4) H 07/03/24 04:58 Neut % (Auto) 40.2 % 07/03/24 04:58 Lymph % (Auto) 48.2 % 07/03/24 04:58 Edmonson % (Auto) 9.2 % 07/03/24 04:58 Eos % (Auto) 1.5 % 07/03/24 04:58 Baso % (Auto) 0.6 % 07/03/24 04:58 Neut # (Auto) 2.60 10^3/uL (1.8-7.7) 07/03/24 04:58 Lymph # (Auto) 3.1 10^3/uL (0.8-4.8) 07/03/24 04:58 Edmonson # (Auto) 0.6 10^3/uL (0.2-0.9) 07/03/24 04:58 Eos # (Auto) 0.1 10^3/uL (0.0-0.8) 07/03/24 04:58 Baso # (Auto) 0.0 10^3/uL (0.0-0.1) 07/03/24 04:58 Nucleated RBC % (auto) 0 % 07/03/24 04:58 Nucleated RBCs # 0.0 /100WBC 07/03/24 04:58 Sodium 143 mmol/L (136-145) 07/03/24 04:58 Potassium 4.6 mmol/L (3.5-5.1) 07/03/24 04:58 Chloride 106 mmol/L (98-107) 07/03/24 04:58 Carbon Dioxide 27 mmol/L (22-29) 07/03/24 04:58 Anion Gap 14.6 (5-19) 07/03/24 04:58 BUN 22 mg/dL (8-23) 07/03/24 04:58 Creatinine 1.1 mg/dL (0.5-0.9) H 07/03/24 04:58 GFR Calculation Not Reportable 07/03/24 04:58 Glucose 104 mg/dL (65-115) 07/03/24 04:58 Calculated Osmolality 300 mOsm/kg (285-295) H 07/03/24 04:58 Calcium 9.1 mg/dL (8.5-10.5) 07/03/24 04:58 Troponin T Baseline 20 ng/L (0-10) H 07/03/24 04:58 Troponin T 120 Minute 19.38 ng/L (0-10) H 07/03/24 06:35 Delta Troponin T -0.62 ABS# (0-10) L 07/03/24 06:35 NT-Pro-B Natriuret Pep 1084 pg/mL (0-450) H 07/03/24 04:58 Discharge Plan Discharge Patient Disposition: Home Clinical Impression: Atypical chest pain, Uncontrolled hypertension Condition: Stable Prescriptions: Continued cholecalciferol (vitamin D3) 1,000 unit capsule 1,000 unit PO QPM ferrous sulfate 325 mg (65 mg iron) tablet,delayed release (DR/EC) 325 mg PO QAM ascorbic acid (vitamin C) 500 mg tablet 500 mg PO QAM vitamin B complex Tablet 1 tab PO QAM cephalexin 500 mg tablet 500 mg PO BID 7 Days Qty: 14 0RF tramadol 50 mg tablet 50 mg PO BID PRN (Reason: Pain) Qty: 60 5RF multivitamin Tablet 1 tab PO QAM omega-3 fatty acids [Fish Oil Concentrate] 1,000 mg Capsule 1,000 mg PO QPM acetaminophen [Tylenol Ex Str Rapid Release] 500 mg Tablet 500 mg PO Q6H PRN (Reason: Pain) cranberry 500 mg Capsule 500 - 1,000 mg PO QAM Calcium + D 600 mg-5 mcg (200 unit) Tablet 1 tab PO QAM zinc gluconate 50 mg Tablet 50 mg PO QPM vitamin E 268 mg (400 unit) Capsule 268 mg PO QPM carvedilol 25 mg tablet 25 mg PO BID atorvastatin 10 mg tablet 10 mg PO QPM allopurinol 100 mg tablet 100 mg PO QPM omeprazole 40 mg capsule,delayed release(DR/EC) 40 mg PO QAM PRN (Reason: Acid Reflux) spironolactone 25 mg tablet 12.5 mg PO DAILY Xarelto 15 mg tablet 15 mg PO DAILY Changed amlodipine 5 mg tablet 10 mg PO QPM PRN (Reason: Blood Pressure) Qty: 30 0RF Discharge Orders: Discharge ED (Routine); Ordered 07/03/24 Ordered By: Mohamud Naik Referrals: Bhaskar Alejandra MD [Primary Care Provider] - Patient Instructions: Opioid Safety, Pain Management Activity Restrictions/Additional Instructions: Thank you for choosing [facility] for your healthcare needs today. It is very important that you follow up as instructed or that you return to the Emergency Department should you have concerns or if your condition changes or worsens in any way. You were seen today with complaint of elevated blood pressure and chest discomfort your EKG did not show any acute changes your blood pressure improved with medications given continue all of your current medications but would recommend that you increase your amlodipine to 10 mg daily. Follow-up with Dr. Keys within the next week Coding Level of Care Code ED Social Work Administrator for Chg Fwd Documented by User: Mohamud Naik DO 07/03/24 08:26 HPI - Recheck/Abnormal Lab/Rx General: Chief Complaint: Recheck/Abnormal Lab/Rx Stated Complaint: HTN & Chest Pain Time Seen by Provider: 07/03/24 04:43 Related Data Home Medications Medication Instructions Recorded Confirmed cholecalciferol (vitamin D3) 25 1,000 unit PO QPM 09/15/19 06/25/24 mcg (1,000 unit) capsule ferrous sulfate 325 mg (65 mg 325 mg PO QAM 09/15/19 06/25/24 iron) tablet,delayed release ascorbic acid (vitamin C) 500 mg 500 mg PO QAM 03/28/20 06/25/24 tablet vitamin B complex 1 tab PO QAM 03/28/20 06/25/24 acetaminophen 500 mg tablet 500 mg PO Q6H PRN Pain 11/10/22 06/25/24 cranberry 500 mg capsule 500 - 1,000 mg PO QAM 11/10/22 06/25/24 multivitamin 1 tab PO QAM 11/10/22 06/25/24 omega-3 fatty acids 1,000 mg 1,000 mg PO QPM 11/10/22 06/25/24 capsule allopurinol 100 mg tablet 100 mg PO QPM 04/17/24 06/25/24 atorvastatin 10 mg tablet 10 mg PO QPM 04/17/24 06/25/24 calcium 600 mg (as 1 tab PO QAM 04/17/24 06/25/24 carbonate)-vitamin D3 5 mcg (200 unit) tablet carvedilol 25 mg tablet 25 mg PO BID 04/17/24 06/25/24 omeprazole 40 mg capsule,delayed 40 mg PO QAM PRN Acid Reflux 04/17/24 06/25/24 release rivaroxaban 15 mg tablet (Xarelto) 15 mg PO DAILY 04/17/24 06/25/24 spironolactone 25 mg tablet 12.5 mg PO DAILY 04/17/24 06/25/24 vitamin E 268 mg (400 unit) capsule 268 mg PO QPM 04/17/24 06/25/24 zinc gluconate 50 mg tablet 50 mg PO QPM 04/17/24 06/25/24 Previous Rx's Medication Instructions Recorded tramadol 50 mg tablet 50 mg PO BID PRN Pain #60 tabs 04/17/24 cephalexin 500 mg tablet 500 mg PO BID 7 days #14 tabs 06/25/24 amlodipine 5 mg tablet 10 mg (2 x 5 mg) PO QPM PRN Blood 07/03/24 Pressure #30 tabs Allergies Allergy/AdvReac Type Severity Reaction Status Date / Time codeine Allergy Unknown vomiting Verified 06/25/24 10:22 [facility] PFSH: Medical History Hx of TIA (transient ischemic attack) and stroke Pulmonary embolism Pulmonary acid aspiration syndrome Dyslipidemia Chronic intractable headache Fatigue Mixed hyperlipidemia Essential hypertension Pulmonary embolism DVT (deep venous thrombosis) Atrial fibrillation Atherosclerotic heart disease Chest pain Surgical History Hx of colonoscopy History of esophagogastroduodenoscopy (EGD) History of toe surgery Hx of cholecystectomy Family History Father Cancer Sister Cancer Other No family history of disorders Denies family history of Diabetes CAD (coronary artery disease) Clotting disorder Dementia Chronic kidney disease (CKD) Suicide Anesthesia complication Bleeding disorder Lung disease Stroke Social History Smoking and tobacco/nicotine status: never used tobacco/nicotine Alcohol intake: never Substance/Drug Use: never Marital status: / Course Vital Signs: Vital signs: Vital Signs Temperature 96.4 F L 07/03/24 04:41 Pulse Rate 52 L 07/03/24 07:00 Respiratory Rate 16 07/03/24 07:00 Blood Pressure 167/84 07/03/24 07:00 Pulse Oximetry 90 07/03/24 07:00 Oxygen Delivery Me thod Room Air 07/03/24 05:32 Oxygen Flow Rate 2 07/03/24 07:00 MDM - Recheck/Abnormal Lab/Rx Medical Decision Making Blood pressure upon arrival was 215/84. Patient given 0.1 mg of clonidine p.o. EKG reveals sinus rhythm with no ST segment abnormalities. Chest x-ray normal. CBC normal. Care assumed from change of shift. Chart reviewed. Patient's blood pressure has improved was given clonidine as well as a dose of amlodipine. Cardiac enzymes trending negative EKGs show sinus bradycardia with no acute changes. Increase amlodipine to 10 mg daily. Patient has a follow-up appointment with Dr. Keys tomorrow regarding urinary tract infection. She is not having any UTI symptoms at this time. Keep the appointment Dr. Keys and recheck blood pressure with him as well. Medical Records I reviewed the patient's medical records. Lab Data I reviewed the patient's lab results. 07/03/24 04:58 07/03/24 04:58 Radiology Impressions Chest X-Ray 07/03/24 04:49 IMPRESSION: 1. Borderline cardiomegaly. Laboratory Results WBC 6.49 10^3/uL (3.29-11.43) 07/03/24 04:58 RBC 4.84 10^6/uL (3.85-5.65) 07/03/24 04:58 Hgb 14.80 g/dL (11.27-16.99) 07/03/24 04:58 Hct 44.9 % (36-47) 07/03/24 04:58 MCV 92.8 fl (85-98) 07/03/24 04:58 MCH 30.6 pg (27-33) 07/03/24 04:58 MCHC 33.0 g/dL (30-55) 07/03/24 04:58 RDW 13.4 % (12.1-15.1) 07/03/24 04:58 Plt Count 234 10^3/cmm (157-399) 07/03/24 04:58 MPV 10.5 fL (7.4-10.4) H 07/03/24 04:58 Neut % (Auto) 40.2 % 07/03/24 04:58 Lymph % (Auto) 48.2 % 07/03/24 04:58 Edmonson % (Auto) 9.2 % 07/03/24 04:58 Eos % (Auto) 1.5 % 07/03/24 04:58 Baso % (Auto) 0.6 % 07/03/24 04:58 Neut # (Auto) 2.60 10^3/uL (1.8-7.7) 07/03/24 04:58 Lymph # (Auto) 3.1 10^3/uL (0.8-4.8) 07/03/24 04:58 Edmonson # (Auto) 0.6 10^3/uL (0.2-0.9) 07/03/24 04:58 Eos # (Auto) 0.1 10^3/uL (0.0-0.8) 07/03/24 04:58 Baso # (Auto) 0.0 10^3/uL (0.0-0.1) 07/03/24 04:58 Nucleated RBC % (auto) 0 % 07/03/24 04:58 Nucleated RBCs # 0.0 /100WBC 07/03/24 04:58 Sodium 143 mmol/L (136-145) 07/03/24 04:58 Potassium 4.6 mmol/L (3.5-5.1) 07/03/24 04:58 Chloride 106 mmol/L (98-107) 07/03/24 04:58 Carbon Dioxide 27 mmol/L (22-29) 07/03/24 04:58 Anion Gap 14.6 (5-19) 07/03/24 04:58 BUN 22 mg/dL (8-23) 07/03/24 04:58 Creatinine 1.1 mg/dL (0.5-0.9) H 07/03/24 04:58 GFR Calculation Not Reportable 07/03/24 04:58 Glucose 104 mg/dL (65-115) 07/03/24 04:58 Calculated Osmolality 300 mOsm/kg (285-295) H 07/03/24 04:58 Calcium 9.1 mg/dL (8.5-10.5) 07/03/24 04:58 Troponin T Baseline 20 ng/L (0-10) H 07/03/24 04:58 Troponin T 120 Minute 19.38 ng/L (0-10) H 07/03/24 06:35 Delta Troponin T -0.62 ABS# (0-10) L 07/03/24 06:35 NT-Pro-B Natriuret Pep 1084 pg/mL (0-450) H 07/03/24 04:58 All radiology interpretation(s) finalized by discharge Discharge Plan Discharge Patient Disposition: Home Clinical Impression: Atypical chest pain, Uncontrolled hypertension Condition: Stable Prescriptions: Continued cholecalciferol (vitamin D3) 1,000 unit capsule 1,000 unit PO QPM ferrous sulfate 325 mg (65 mg iron) tablet,delayed release (DR/EC) 325 mg PO QAM ascorbic acid (vitamin C) 500 mg tablet 500 mg PO QAM vitamin B complex Tablet 1 tab PO QAM cephalexin 500 mg tablet 500 mg PO BID 7 Days Qty: 14 0RF tramadol 50 mg tablet 50 mg PO BID PRN (Reason: Pain) Qty: 60 5RF multivitamin Tablet 1 tab PO QAM omega-3 fatty acids [Fish Oil Concentrate] 1,000 mg Capsule 1,000 mg PO QPM acetaminophen [Tylenol Ex Str Rapid Release] 500 mg Tablet 500 mg PO Q6H PRN (Reason: Pain) cranberry 500 mg Capsule 500 - 1,000 mg PO QAM Calcium + D 600 mg-5 mcg (200 unit) Tablet 1 tab PO QAM zinc gluconate 50 mg Tablet 50 mg PO QPM vitamin E 268 mg (400 unit) Capsule 268 mg PO QPM carvedilol 25 mg tablet 25 mg PO BID atorvastatin 10 mg tablet 10 mg PO QPM allopurinol 100 mg tablet 100 mg PO QPM omeprazole 40 mg capsule,delayed release(DR/EC) 40 mg PO QAM PRN (Reason: Acid Reflux) spironolactone 25 mg tablet 12.5 mg PO DAILY Xarelto 15 mg tablet 15 mg PO DAILY Changed amlodipine 5 mg tablet 10 mg PO QPM PRN (Reason: Blood Pressure) Qty: 30 0RF Discharge Orders: Discharge ED (Routine); Ordered 07/03/24 Ordered By: Mohamud Naik Referrals: Bhaskar Alejandra MD [Primary Care Provider] - Patient Instructions: Opioid Safety, Pain Management Activity Restrictions/Additional Instructions: Thank you for choosing [facility] for your healthcare needs today. It is very important that you follow up as instructed or that you return to the Emergency Department should you have concerns or if your condition changes or worsens in any way. You were seen today with complaint of elevated blood pressure and chest discomfort your EKG did not show any acute changes your blood pressure improved with medications given continue all of your current medications but would recommend that you increase your amlodipine to 10 mg daily. Follow-up with Dr. Keys within the next week Coding Level of Care Code ED Social Work Administrator for Galye Benitez
[2024-07-03 05:30] LABS: Troponin(5th) Baseline 20 ng/L (0-10)
[2024-07-03 05:38] LABS: Anion Gap 14.6 (5-19); Blood Urea Nitrogen 22 mg/dL (8-23); Calcium 9.1 mg/dL (8.5-10.5); Carbon Dioxide 27 mmol/L (22-29); Chloride 106 mmol/L (98-107); Creatinine Clr Calc Pharmacy 34.7597; Glucose 104 mg/dL (65-115); NT Pro B Type Natriuretic Pept 1084 pg/mL (0-450); Osmolality Calculated 300 mOsm/kg (285-295); Potassium 4.6 mmol/L (3.5-5.1); Sodium 143 mmol/L (136-145)
[2024-07-03] MEDS: amlodipine 5 mg Tablet PO (05:42)
--- NOTE | 2024-07-03 06:56 | ECG_ITS ---
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
[2024-07-03 07:02] LABS: Troponin 5 2HR 19.38 ng/L (0-10)
[2024-07-03 07:03] LABS: Troponin 5 2HR Delta -0.62 ABS# (0-10)
--- NOTE | 2024-07-03 07:36 | PC.PHAR ---
patient doesn't rememeber medications will call [facility] when they open at 9am
== END 2024-07-03 08:51 | disposition home or self-care (01) ==
PROVIDERS: Emergency Medicine; Emergency Provider Family Medicine; PCP Family Medicine
DX: R07.89 Other chest pain (principal); I10 Essential (primary) hypertension; I51.7 Cardiomegaly
CPT/HCPCS: 36415; 71045; 80048; 83880; 84484; 85025; 93005; 99285

== ENCOUNTER → 2024-07-04 15:56 | Outpatient (BNVA) | payer MEDICARE, MEDICAID, SELFPAY | PROVIDERS: PCP Family Medicine; Visit Provider Family Medicine | DX: N39.0 Urinary tract infection, site not specified (principal); R31.9 Hematuria, unspecified | CPT/HCPCS: 81000 ==

== ENCOUNTER 2024-07-07 09:36 | Observation (INO) | payer MEDICARE, MEDICAID, SELFPAY ==
[2024-07-07] VITALS (9 sets, daily range): BP systolic 144–183; BP diastolic 82–102; PULSE 60–91; RESP 16–21; TEMP 36.4–36.7; O2SAT 90–94; BMI 32.9
--- NOTE | 2024-07-07 09:39 | XR_ITS ---
WS: [email or web address] Exam: XR chest 1V portable [id number] Date/Time of Exam: 07/07/2024 9:46 AM Reason For Exam: cp Comparison 07/03/2024. Lungs are fully expanded and clear. Mild cardiac enlargement unchanged. No pleural effusions. Calcifi cation and tortuosity of the thoracic aorta. Chronic rightward tracheal deviation. Bony structures ar e intact. XR/XR chest 1V portable [id number] IMPRESSION: 1. Mild cardiac enlargement. No acute process identified.
--- NOTE | 2024-07-07 09:39 | CTR_ITS ---
PROCEDURE INFORMATION: Exam: CT Head Without Contrast Exam date and time: 07/07/2024 9:48 AM Age: 88 years old Clinical indication: Injury or trauma; Fall; Blunt trauma (contusions or hematomas); Additional info: Weakness TECHNIQUE: Imaging protocol: Computed tomography of the head without contrast. Radiation optimization: All CT scans at this facility use at least one of these dose optimization techniques: automated exposure control; mA and/or kV adjustment per patient size (includes targeted exams where dose is matched to clinical indication); or iterative reconstruction. COMPARISON: CT head wo con* [id number] 04/17/2024 1:08 PM RADIATION DOSE METRICS: Total DLP (mGy-cm): 972.11 FINDINGS: Brain: Periventricular white matter lucency represents atherosclerotic encephalopathic changes. Stable bilateral lacunar infarcts. Cerebral ventricles: No ventriculomegaly. Mild ventricular prominence. This is proportionate to the degree of atrophy observed. Paranasal sinuses: Visualized sinuses are unremarkable. No fluid levels. Mastoid air cells: Visualized mastoid air cells are well aerated. Bones: Unremarkable. No acute fracture. Soft tissues: Unremarkable. CT/CT head wo con* [id number] IMPRESSION: No acute intracranial abnormality.
--- NOTE | 2024-07-07 09:39 | ECG_ITS ---
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 Measurements Intervals [place] Rate: 66 P: 24 TX: 212 QRS: -16 QRSD: 98 T: 36 QT: 415 QTc: 437 Interpretive Statements SINUS RHYTHM WITH FIRST DEGREE AV BLOCK Compared to ECG 07/03/2024 06:56:11 Sinus bradycardia no longer present Heavy baseline artifacts; Need to repeat the study. Electronically Signed On 07-10-2024 00:07:25 CDT by Arnoldo Chavez M.D. [id number]
--- NOTE | 2024-07-07 09:41 | XR_ITS ---
WS: [email or web address] Exam: XR ankle LT min 3V* [id number] Date/Time of Exam: 07/07/2024 9:46 AM Reason For Exam: fall Comparison 11/02/2014. No acute ankle fracture. The ankle mortise is intact. Soft tissue swelling about the ankle. Partially visualized hardware in the first metatarsal. XR/XR ankle LT min 3V* [id number] IMPRESSION: 1. Soft tissue swelling. No fracture.
--- NOTE | 2024-07-07 09:41 | XR_ITS ---
WS: [email or web address] Exam: XR pelvis 1-2V* [id number] Date/Time of Exam: 07/07/2024 9:46 AM Reason For Exam: fall No acute pelvic fracture. 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 Surgical clips in the pelvis and l ower RIGHT abdomen. Partially visualized IVC filter. XR/XR pelvis 1-2V* [id number] IMPRESSION: 1. No acute pelvic fracture.
--- NOTE | 2024-07-07 09:47 | ED_ITS ---
HPI - Weakness 2 General: Chief complaint: Weakness Stated complaint: FALL Time Seen by Provider: 07/07/24 09:37 Source: patient and EMS Mode of arrival: EMS Limitations: no limitations History of Present Illness: 88-year-old female states she developed very weak this morning states that she had fell out of bed was unable to get up and walk or stand due to weakness she denies any other injuries from her fall denies hitting her head has some mild left ankle pain. She states she had some chest pain as well while she is lying on the floor but is since resolved. Denies any confusion. Associated symptoms: Reports chest pain; Denies chills, fever(s), headache(s), nausea or vomiting Review of Systems 2 Const: Reports: fatigue and malaise; Denies: fever(s), chills, body aches or change in appetite Eyes: Denies: blurry vision or eye discomfort ENMT: Denies: throat pain or dental pain Card: Reports: chest pain Resp: Denies: dyspnea GI: Denies: abdominal pain, nausea, vomiting or diarrhea Musc: Denies: neck pain or back pain Skin/Breast: Denies: rash Neuro: Denies: headache(s) PFSH ED 2 PFSH: Medical History Hx of TIA (transient ischemic attack) and stroke Pulmonary embolism Pulmonary acid aspiration syndrome Dyslipidemia Chronic intractable headache Fatigue Mixed hyperlipidemia Essential hypertension Pulmonary embolism DVT (deep venous thrombosis) Atrial fibrillation Atherosclerotic heart disease Chest pain Surgical History Hx of colonoscopy History of esophagogastroduodenoscopy (EGD) History of toe surgery Hx of cholecystectomy Family History Father Cancer Sister Cancer Other No family history of disorders Denies family history of Diabetes CAD (coronary artery disease) Clotting disorder Dementia Chronic kidney disease (CKD) Suicide Anesthesia complication Bleeding disorder Lung disease Stroke Social History Smoking and tobacco/nicotine status: never used tobacco/nicotine Alcohol intake: never Substance/Drug Use: never Marital status: / Physical Exam 2 Const: COMMON NORMALS: patient oriented x3 HENMT: COMMON NORMALS: normocephalic and atraumatic HEAD & SCALP: n ormocephalic and atraumatic Eye: COMMON NORMALS: Equal, round and reactive pupils present and EOMs intact bilaterally PUPIL: Yes Equal, round and reactive pupils present Neck/C-Spine: COMMON NORMALS: full ROM and supple Chest: COMMONS NORMALS: normal inspection of the chest Resp: COMMON NORMALS: normal respiratory effort, No retractions, No use of accessory muscles and clear to auscultation bilaterally AUSCULTATION: clear to auscultation bilaterally Cardio: COMMON NORMALS: regular rate, regular rhythm and No murmurs present (Cardio) RATE: regular rate RHYTHM: regular rhythm GI: COMMON NORMALS: Normal to inspection, nondistended, normoactive bowel sounds present, Soft to palpation, non-tender and no masses PALPATION: Yes Soft to palpation Extremity: COMMON NORMALS: normal to inspection and full ROM Neuro: COMMON NORMALS: patient oriented x3, moves all extremities and no focal motor deficits Psych: COMMON NORMALS: mental status grossly normal, Normal thought process present and cooperative THOUGHT PROCESS: Normal thought process present Skin: COMMON NORMALS: no rashes or lesions noted and no wounds GENERAL SKIN EXAM: no rashes or lesions noted Course 2 Vital Signs: Vital signs: Vital Signs Temperature 98.0 F 07/07/24 09:37 Pulse Rate 68 07/07/24 11:16 Respiratory Rate 17 07/07/24 09:37 Blood Pressure 171/89 07/07/24 11:16 Pulse Oximetry 90 07/07/24 11:16 Oxygen Delivery Me thod Room Air 07/07/24 09:37 MDM - Weakness Medical Decision Making Patient presents with generalized weakness she is found have a UTI she states she is not able to ambulate due to being severely weak I spoke to hospitalist admit for observation Medical Records I reviewed the patient's medical records. Lab Data I reviewed the patient's lab results. 07/07/24 09:44 07/07/24 09:44 Radiology Impressions Chest X-Ray 07/07/24 09:39 IMPRESSION: 1. Mild cardiac enlargement. No acute process identified. Head CT 07/07/24 09:39 IMPRESSION: No acute intracranial abnormality. Ankle X-Ray 07/07/24 09:41 IMPRESSION: 1. Soft tissue swelling. No fracture. Pelvis X-Ray 07/07/24 09:41 IMPRESSION: 1. No acute pelvic fracture. Laboratory Results WBC 9.88 10^3/uL (3.29-11.43) 07/07/24 09:44 RBC 4.64 10^6/uL (3.85-5.65) 07/07/24 09:44 Hgb 14.30 g/dL (11.27-16.99) 07/07/24 09:44 Hct 42.9 % (36-47) 07/07/24 09:44 MCV 92.5 fl (85-98) 07/07/24 09:44 MCH 30.8 pg (27-33) 07/07/24 09:44 MCHC 33.3 g/dL (30-55) 07/07/24 09:44 RDW 13.5 % (12.1-15.1) 07/07/24 09:44 Plt Count 238 10^3/cmm (157-399) 07/07/24 09:44 MPV 10.7 fL (7.4-10.4) H 07/07/24 09:44 Neut % (Auto) 66.0 % 07/07/24 09:44 Lymph % (Auto) 24.4 % 07/07/24 09:44 [place]ion % (Auto) 8.2 % 07/07/24 09:44 Eos % (Auto) 1.0 % 07/07/24 09:44 Baso % (Auto) 0.2 % 07/07/24 09:44 Neut # (Auto) 6.52 10^3/uL (1.8-7.7) 07/07/24 09:44 Lymph # (Auto) 2.4 10^3/uL (0.8-4.8) 07/07/24 09:44 Irion # (Auto) 0.8 10^3/uL (0.2-0.9) 07/07/24 09:44 Eos # (Auto) 0.1 10^3/uL (0.0-0.8) 07/07/24 09:44 Baso # (Auto) 0.0 10^3/uL (0.0-0.1) 07/07/24 09:44 Nucleated RBC % (auto) 0 % 07/07/24 09:44 Nucleated RBCs # 0.0 /100WBC 07/07/24 09:44 PT 17.40 SECONDS (12.1-14.9) H 07/07/24 09:44 INR 1.38 (0.8-1.2) H 07/07/24 09:44 Sodium 138 mmol/L (136-145) 07/07/24 09:44 Potassium 5.0 mmol/L (3.5-5.1) 07/07/24 09:44 Chloride 105 mmol/L (98-107) 07/07/24 09:44 Carbon Dioxide 23 mmol/L (22-29) 07/07/24 09:44 Anion Gap 15.0 (5-19) 07/07/24 09:44 BUN 29 mg/dL (8-23) H 07/07/24 09:44 Creatinine 1.2 mg/dL (0.5-0.9) H 07/07/24 09:44 GFR Calculation Not Reportable 07/07/24 09:44 Glucose 121 mg/dL (65-115) H 07/07/24 09:44 Calculated Osmolality 293 mOsm/kg (285-295) 07/07/24 09:44 Calcium 8.3 mg/dL (8.5-10.5) L 07/07/24 09:44 Total Bilirubin 1.3 mg/dL (0.15-1.2) H 07/07/24 09:44 AST 23 U/L (0-32) 07/07/24 09:44 ALT 15 U/L (0-33) 07/07/24 09:44 Alkaline Phosphatase 118 U/L (35-105) H 07/07/24 09:44 Troponin T Baseline 19 ng/L (0-10) H 07/07/24 09:44 Total Protein 6.0 g/dL (6.6-8.7) L 07/07/24 09:44 Albumin 3.6 g/dL (3.5-5.2) 07/07/24 09:44 Globulin 2.4 g/dL (1.3-4.6) 07/07/24 09:44 Urine Color Yellow (Yellow) 07/07/24 10:35 Urine Appearance Cloudy (CLEAR) A 07/07/24 10:35 Urine pH 6.5 (5-7) 07/07/24 10:35 Ur Specific [place] 1.008 (1.005-1.030) 07/07/24 10:35 Urine Protein Negative (Negative) 07/07/24 10:35 Urine Glucose (UA) Negative (Normal) 07/07/24 10:35 Urine Ketones Negative (Negative) 07/07/24 10:35 Urine Blood Negative (Negative) 07/07/24 10:35 Urine Nitrate Positive (Negative) A 07/07/24 10:35 Urine Bilirubin Negative (Negative) 07/07/24 10:35 Urine Urobilinogen 0.2 mg/dL (Negative) 07/07/24 10:35 Ur Leukocyte Esterase Trace (Negative) A 07/07/24 10:35 Urine RBC 3-5 /hpf (0-2) 07/07/24 10:35 Urine WBC 6-10 /hpf (0-5) 07/07/24 10:35 Ur Squamous Epith Cells 0-5 /hpf (0-5) 07/07/24 10:35 Amorphous Sediment Not Reportable 07/07/24 10:35 Urine Bacteria 4+ /hpf (NONE) H 07/07/24 10:35 Hyaline Casts 0-4 /lpf H 07/07/24 10:35 All radiology interpretation(s) finalized by discharge Discharge Plan Discharge Patient Disposition: Placed in Observation Clinical Impression: UTI (urinary tract infection), Generalized weakness Condition: Stable Prescriptions: No Action cholecalciferol (vitamin D3) 1,000 unit capsule 1,000 unit PO QPM ferrous sulfate 325 mg (65 mg iron) tablet,delayed release (DR/EC) 325 mg PO QAM ascorbic acid (vitamin C) 500 mg tablet 500 mg PO QAM vitamin B complex Tablet 1 tab PO QAM amlodipine 5 mg tablet 5 mg PO DAILY PRN (Reason: Blood Pressure) Qty: 30 11RF carvedilol 12.5 mg tablet 12.5 mg PO BID Qty: 60 11RF Rx Instructions: must administer with a meal/food tramadol 50 mg tablet 50 mg PO BID PRN (Reason: Pain) Qty: 60 5RF multivitamin Tablet 1 tab PO QAM omega-3 fatty acids 1,000 mg Capsule 1,000 mg PO QPM acetaminophen 500 mg Tablet 500 mg PO Q6H PRN (Reason: Pain) cranberry 500 mg Capsule 500 - 1,000 mg PO QAM calcium carbonate-vitamin D3 600 mg-5 mcg (200 unit) Tablet 1 tab PO QAM zinc gluconate 50 mg Tablet 50 mg PO QPM vitamin E 268 mg (400 unit) Capsule 268 mg PO QPM atorvastatin 10 mg tablet 10 mg PO QPM allopurinol 100 mg tablet 100 mg PO QPM omeprazole 40 mg capsule,delayed release(DR/EC) 40 mg PO QAM PRN (Reason: Acid Reflux) spironolactone 25 mg tablet 12.5 mg PO DAILY Xarelto 15 mg tablet 15 mg PO DAILY Referrals: Bhaskar Alejandra MD [Primary Care Provider] - Coding Level of Care Code ED 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 for Chg Fwd Related Data Home Medications Medication Instructions Recorded Confirmed cholecalciferol (vitamin D3) 25 1,000 unit PO QPM 09/15/19 07/07/24 mcg (1,000 unit) capsule ferrous sulfate 325 mg (65 mg 325 mg PO QAM 09/15/19 07/07/24 iron) tablet,delayed release ascorbic acid (vitamin C) 500 mg 500 mg PO QAM 03/28/20 07/07/24 tablet vitamin B complex 1 tab PO QAM 03/28/20 07/07/24 acetaminophen 500 mg tablet 500 mg PO Q6H PRN Pain 11/10/22 07/07/24 cranberry 500 mg capsule 500 - 1,000 mg PO QAM 11/10/22 07/07/24 multivitamin 1 tab PO QAM 11/10/22 07/07/24 omega-3 fatty acids 1,000 mg 1,000 mg PO QPM 11/10/22 07/07/24 capsule allopurinol 100 mg tablet 100 mg PO QPM 04/17/24 07/07/24 atorvastatin 10 mg tablet 10 mg PO QPM 04/17/24 07/07/24 calcium 600 mg (as 1 tab PO QAM 04/17/24 07/07/24 carbonate)-vitamin D3 5 mcg (200 unit) tablet omeprazole 40 mg capsule,delayed 40 mg PO QAM PRN Acid Reflux 04/17/24 07/07/24 release rivaroxaban 15 mg tablet (Xarelto) 15 mg PO DAILY 04/17/24 07/07/24 spironolactone 25 mg tablet 12.5 mg PO DAILY 04/17/24 07/07/24 vitamin E 268 mg (400 unit) capsule 268 mg PO QPM 04/17/24 07/07/24 zinc gluconate 50 mg tablet 50 mg PO QPM 04/17/24 07/07/24 Previous Rx's Medication Instructions Recorded tramadol 50 mg tablet 50 mg PO BID PRN Pain #60 tabs 04/17/24 amlodipine 5 mg tablet 5 mg PO DAILY PRN Blood Pressure 07/04/24 #30 tabs carvedilol 12.5 mg tablet 12.5 mg PO BID #60 tabs 07/04/24 Allergies Allergy/AdvReac Type Severity Reaction Status Date / Time codeine Allergy Unknown vomiting Verified 06/25/24 10:22
[2024-07-07 09:54] LABS: Basophils % 0.2 %; Eosinophils # 0.1 10^3/uL (0.0-0.8); Hematocrit 42.9 % (36-47); Lymphocytes # 2.4 10^3/uL (0.8-4.8); Lymphocytes % 24.4 %; Mean Corpuscular HGB Conc 33.3 g/dL (30-55); Mean Corpuscular Hemoglobin 30.8 pg (27-33); Mean Corpuscular Volume 92.5 fl (85-98); Mean Platelet Volume 10.7 fL (7.4-10.4); Monocytes # 0.8 10^3/uL (0.2-0.9); Monocytes % 8.2 %; Neutrophils # 6.52 10^3/uL (1.8-7.7); Nucleated Red Blood Cells % 0 %; Platelet Count 238 10^3/cmm (157-399); Red Blood Count 4.64 10^6/uL (3.85-5.65); Red Cell Distribution Width 13.5 % (12.1-15.1); White Blood Count 9.88 10^3/uL (3.29-11.43)
[2024-07-07 10:13] LABS: INR 1.38 (0.8-1.2)
[2024-07-07 10:17] LABS: Troponin(5th) Baseline 19 ng/L (0-10)
[2024-07-07 10:19] LABS: Alanine Aminotransferase 15 U/L (0-33); Albumin Level 3.6 g/dL (3.5-5.2); Alkaline Phosphatase 118 U/L (35-105); Aspartate Amino Transferase 23 U/L (0-32); Blood Urea Nitrogen 29 mg/dL (8-23); Calcium 8.3 mg/dL (8.5-10.5); Carbon Dioxide 23 mmol/L (22-29); Chloride 105 mmol/L (98-107); Creatinine Clr Calc Pharmacy 32.0853; Globulin 2.4 g/dL (1.3-4.6); Glucose 121 mg/dL (65-115); Osmolality Calculated 293 mOsm/kg (285-295); Sodium 138 mmol/L (136-145); Total Bilirubin 1.3 mg/dL (0.15-1.2)
[2024-07-07 10:46] LABS: Bilirubin Urine Negative (Negative); Blood Urine Negative (Negative); Glucose Urine UA Negative (Normal); Ketones Urine Negative (Negative); Leukocyte Esterase Urine Trace (Negative); Nitrate Urine Positive (Negative); Protein Urine Negative (Negative); Specific Gravity, Urine 1.008 (1.005-1.030); Urine Appearance Cloudy (CLEAR); Urine Color Yellow (Yellow); Urobilinogen Urine 0.2 mg/dL (Negative); pH Urine 6.5 (5-7)
[2024-07-07 10:51] LABS: Add Urine Microscopic? YES; Bacteria Urine 4+ /hpf; Hyaline Casts Urine 0-4 /lpf; Squamous Epithelial Cell Urine 0-5 /hpf (0-5)
[2024-07-07 11:01] LABS: Add Urine Culture? Yes; UA Slide Review UA Slide Review Perf
[2024-07-07] MEDS: cefTRIAXone 1,000 mg SDV 1000 MG IVP (11:37)
--- NOTE | 2024-07-07 11:40 | ECG_ITS ---
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 Measurements Intervals [place] Rate: 55 P: 57 MA: 225 QRS: -11 QRSD: 99 T: 30 QT: 441 QTc: 425 Interpretive Statements SINUS BRADYCARDIA WITH FIRST DEGREE AV BLOCK Compared to ECG 07/07/2024 09:39:47 Sinus rhythm no longer present Electronically Signed On 07-11-2024 00:50:28 CDT by Arnoldo Chavez M.D. [email or web address]
--- NOTE | 2024-07-07 11:45 | P.HP_ITS ---
Providers/Chief Complaint 2 Admitting Physician: Livan Turner MD Primary Care Provider: Bhaskar Alejandra MD Chief Complaint: FALL History of Present Illness Aura Villalpando is a 88 year old female presenting to the emergency department with weakness and chest discomfort. She reports around 6 AM when she woke up to go to the bathroom, she felt very weak. She had some chest discomfort, substernal which she really cannot describe other than it does not radiate. No shortness of breath. She reports she slid down to the floor, and really did not hurt anything but was found laying there this morning. She reports she feels like she still has a twinge of a little bit of discomfort. She did receive aspirin and route by ambulance services. Her most recent ER visit was on 07/03 for hypertension and weakness. At that point she was given clonidine, myocardial infarction ruled out, and was sent home with a prescription for Norvasc. Heart rate was 52 when she was in the emergency department there, so her carvedilol was stopped. She visited her primary care provider on July 04, and restarted her carvedilol the next day. She reports no fever, significant cough. She was a little nauseated yesterday. She may have had a loose stool several days ago. No blood in emesis or stool no black or tarry stool. Reports occasionally she will get food caught in her esophagus, and vomit to clear this. She never has any trouble with fluids. In the emergency department she got a dose of Rocephin. Review of Systems 2 General: Reports: 10 or more systems reviewed and unremarkable except in HPI and below Card: Reports: chest pain Resp: Denies: dyspnea GI: Reports: nausea; Denies: abdominal pain, vomiting, hematochezia or melena Medications/Allergies Home Medications Medication Instructions Recorded Confirmed Last Taken Type cholecalciferol (vitamin D3) 25 1,000 unit PO QPM 09/15/19 07/07/24 07/06/24 History mcg (1,000 unit) capsule ferrous sulfate 325 mg (65 mg 325 mg PO QAM 09/15/19 07/07/24 07/06/24 History iron) tablet,delayed release ascorbic acid (vitamin C) 500 mg 500 mg PO QAM 03/28/20 07/07/24 07/06/24 History tablet vitamin B complex 1 tab PO QAM 03/28/20 07/07/24 07/06/24 History acetaminophen 500 mg tablet 500 mg PO Q6H PRN Pain 11/10/22 07/07/24 07/06/24 History cranberry 500 mg capsule 500 - 1,000 mg PO QAM 11/10/22 07/07/24 07/06/24 History multivitamin 1 tab PO QAM 11/10/22 07/07/24 07/06/24 History omega-3 fatty acids 1,000 mg 1,000 mg PO QPM 11/10/22 07/07/24 07/06/24 History capsule allopurinol 100 mg tablet 100 mg PO QPM 04/17/24 07/07/24 07/06/24 History atorvastatin 10 mg tablet 10 mg PO QPM 04/17/24 07/07/24 07/06/24 History calcium 600 mg (as 1 tab PO QAM 04/17/24 07/07/24 07/06/24 History carbonate)-vitamin D3 5 mcg (200 unit) tablet omeprazole 40 mg capsule,delayed 40 mg PO QAM PRN Acid Reflux 04/17/24 07/07/24 07/06/24 History release rivaroxaban 15 mg tablet (Xarelto) 15 mg PO DAILY 04/17/24 07/07/24 07/06/24 History spironolactone 25 mg tablet 12.5 mg PO DAILY 04/17/24 07/07/24 07/06/24 History tramadol 50 mg tablet 50 mg PO BID PRN Pain #60 tabs 04/17/24 07/07/24 07/06/24 Rx vitamin E 268 mg (400 unit) capsule 268 mg PO QPM 04/17/24 07/07/24 07/06/24 History zinc gluconate 50 mg tablet 50 mg PO QPM 04/17/24 07/07/24 07/06/24 History amlodipine 5 mg tablet 5 mg PO DAILY PRN Blood Pressure 07/04/24 07/07/24 07/06/24 Rx #30 tabs carvedilol 12.5 mg tablet 12.5 mg PO BID #60 tabs 07/04/24 07/07/24 07/06/24 Rx Allergies Allergy/AdvReac Type Severity Reaction Status Date / Time codeine Allergy Unknown vomiting Verified 10/13/24 10:22 PFSH Acute 2 PFSH: Medical History (Updated 07/07/24 @ 11:56 by Livan Turner MD) Hx of TIA (transient ischemic attack) and stroke Pulmonary embolism Pulmonary acid aspiration syndrome Dyslipidemia Chronic intractable headache Fatigue Mixed hyperlipidemia Essential hypertension Pulmonary embolism DVT (deep venous thrombosis) Atrial fibrillation Atherosclerotic heart disease Chest pain Surgical History Hx of colonoscopy History of esophagogastroduodenoscopy (EGD) History of toe surgery Hx of cholecystectomy Family History Father Cancer Sister Cancer Other No family history of disorders Denies family history of Diabetes CAD (coronary artery disease) Clotting disorder Dementia Chronic kidney disease (CKD) Suicide Anesthesia complication Bleeding disorder Lung disease Stroke Social History Smoking and tobacco/nicotine status: never used tobacco/nicotine Alcohol intake: never Substance/Drug Use: never Marital status: / Other PFSH information: Supplemental PFSH Information: Past history of biliary sludge, hepatic dilation,, I suspect with history of sphincterotomy around 1 year ago. Vitals/I&O/Wt Last Vital Signs Temp 98.0 F 07/07/24 09:37 Pulse 61 07/07/24 11:30 Resp 21 H 07/07/24 11:30 BP 182/91 07/07/24 11:30 Pulse Ox 93 07/07/24 11:30 O2 Del Method Room Air 07/07/24 11:30 Weight last 48 hrs Weight 81.647 kg Physical Exam 2 Narrative: General Exam is a white female, no distress, heart rate of 58 despite not having carvedilol this morning HEENT: Atraumatic and normocephalic. Oropharynx clear. Mucous membranes moist. Neck is supple no lymphadenopathy thyromegaly Cardiovascular bradycardic, regular, 2/6 systolic murmur Lungs clear Abdomen soft. No obvious organomegaly exam is deferred Extremities no cyanosis clubbing. Puffy but no pitting edema. Skin no rash Neuro no focal deficits. Data 07/07/24 09:44 07/07/24 09:44 Other Labs: I personally reviewed her EKG. This demonstrated significant artifact, left axis deviation, sinus rhythm, initially heart rate of 66 with a first-degree AV block with MT interval being 212. Another EKG, I believe done later demonstrated a heart rate of 55. Chest x-ray by my review no infiltrate, cardiomegaly is noted Head CT, ankle x-ray, pelvis x-ray with no acute findings. I did review all of these as well. Urine culture was sent INR 1.38 Calcium 8.3, albumin 3.6 LFTs normal with the exception of bilirubin of 1.3, alk phos of 118 Urinalysis with positive nitrates, 4+ bacteria, 3-5 reds and trace leukocyte Estrace. 6-10 whites were noted. MRI 10/05 did not demonstrate any obstruction or kidney stones Blood cultures not done A&P Assessment and plan (1) Chest pain: Patient reports some chest discomfort Serial troponins Echocardiogram, TSH, magnesium In discussing patient goals, at this point a stress test will not be planned. She does not really want any kind of invasive management. Therefore we will add aspirin, continue statin, try to control blood pressure, addition of Imdur after trial of subcutaneous nitroglycerin and monitor for symptom improvement.. Beta- pascual will not be given secondary to bradycardia. (2) Uncontrolled hypertension: Hold carvedilol secondary to bradycardia Norvasc 5 mg daily Monitor blood pressure Nitroglycerin ointment, with thoughts to convert this to Imdur as early as tomorrow (3) Weakness: Patient with significant weakness May be secondary to UTI, although could be secondary to bradycardia. She also complains of significant dizziness. Note that her heart rate on previous ER visit, was low at 52. Here it is 55 on the latest EKG and she has not had any carvedilol this morning. Hold carvedilol Secondary to coexisting dizziness consider orthostatic blood pressures after other immediate problems treated. (4) Fall: Son is concerned about fall. Patient reports she was just too weak to get up from the floor. Check CK. Physical therapy evaluation. (5) UTI (urinary tract infection): Concern of UTI This may is complicated secondary to coexisting weakness, culminating in likely fall Continue ceftriaxone Note recent urine culture 06/25 showing E. coli sensitive to ceftriaxone Qualifiers: Urinary tract infection type: site unspecified Hematuria presence: with hematuria Qualified Code(s): N39.0 - Urinary tract infection, site not specified; R31.9 - Hematuria, unspecified Plan History of reflux with some dysphagia. Could consider further outpatient workup but for now we will increase proton pump inhibitor to twice daily. This could be playing a role in chest discomfort as well. History of pulmonary embolism History of atrial fibrillation, currently sinus rhythm History of intrahepatic bile duct dilation, with some type of procedure last year at outside hospital likely sphincterotomy. Other medical problems as outlined in past medical history Allow natural , discussed with patient and son. She reports son is decision-maker should she not be able to make decisions for self. Her Xarelto will suffice for DVT prophylaxis Attestations 2 Medical Necessity Statement*: Will need less than 2 midnight stay for evaluation and treatment of chest discomfort, dizziness, UTI, bradycardia, weakness, possible fall Diagnoses Chest pain R07.9 Uncontrolled hypertension I10 Weakness R53.1 Fall W19.XXXA Urinary tract infection with hematuria, site unspecified N39.0; R31.9 Urinary tract infection type: site unspecified Hematuria presence: with hematuria Time Spent (min) 57
[2024-07-07 12:16] LABS: Magnesium 1.9 mg/dL (1.7-2.3); Thyroid Stimulating Hormone 1.71 uIU/mL (0.27-4.20)
[2024-07-07] MEDS: amlodipine 5 mg Tablet PO (12:18)
[2024-07-07] MEDS: nitroglycerin 1 gm/inch oint Pkt 0.5 INCH TOPICAL ×2 (12:18→16:31)
[2024-07-07 12:33] LABS: Creatine Phosphokinase 44 U/L (26-192)
--- NOTE | 2024-07-07 15:33 | PC.NURSE ---
Passive feelings of suicide. Pt does not have a plan, and denies that she will do anything. Pt states that she has never been to the doctor and keeps it to herself. Notified Dr. Turner. No new orders at this time.
--- NOTE | 2024-07-07 15:39 | ECG_ITS ---
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 Measurements Intervals [place] Rate: 62 P: 46 TN: 231 QRS: -22 QRSD: 102 T: 27 QT: 440 QTc: 448 Interpretive Statements SINUS RHYTHM WITH FIRST DEGREE AV BLOCK BORDERLINE LEFT AXIS DEVIATION [QRS AXIS < -20] Compared to ECG 07/07/2024 11:40:59 Sinus bradycardia no longer present Electronically Signed On 07-11-2024 00:50:41 CDT by Arnoldo Chavez M.D. [id number]
--- NOTE | 2024-07-07 15:39 | PC.NURSE ---
Pt states she has an eighth-grade education level.
[2024-07-07 16:18] LABS: Troponin 5 6HR 18.77 ng/L (0-10)
[2024-07-07 16:23] LABS: Troponin 5 6HR Delta -0.23 ng/L (0-12)
[2024-07-07] MEDS: allopurinol 100 mg Tablet PO (16:32)
[2024-07-07] MEDS: pantoprazole DR 40 mg Tablet PO (16:32)
[2024-07-08] VITALS: BP 132/88; PULSE 87; RESP 19; TEMP 36.6; O2SAT 93
[2024-07-08 03:53] VITALS: BP 130/78; PULSE 75; RESP 16; TEMP 36.6; O2SAT 93
[2024-07-08 05:57] LABS: Basophils % 0.3 %; Eosinophils # 0.1 10^3/uL (0.0-0.8); Eosinophils % 1.5 %; Hematocrit 39.9 % (36-47); Lymphocytes # 2.8 10^3/uL (0.8-4.8); Lymphocytes % 38.9 %; Mean Corpuscular HGB Conc 33.6 g/dL (30-55); Mean Corpuscular Hemoglobin 30.7 pg (27-33); Mean Corpuscular Volume 91.3 fl (85-98); Mean Platelet Volume 10.9 fL (7.4-10.4); Monocytes # 0.7 10^3/uL (0.2-0.9); Monocytes % 9.6 %; Neutrophils # 3.61 10^3/uL (1.8-7.7); Neutrophils % 49.4 %; Nucleated Red Blood Cells % 0 %; Platelet Count 220 10^3/cmm (157-399); Red Blood Count 4.37 10^6/uL (3.85-5.65); Red Cell Distribution Width 13.6 % (12.1-15.1)
[2024-07-08 06:00] VITALS: PULSE 68
[2024-07-08 06:16] LABS: Alanine Aminotransferase 14 U/L (0-33); Albumin Level 3.4 g/dL (3.5-5.2); Alkaline Phosphatase 113 U/L (35-105); Anion Gap 13.4 (5-19); Aspartate Amino Transferase 21 U/L (0-32); Blood Urea Nitrogen 25 mg/dL (8-23); Calcium 8.1 mg/dL (8.5-10.5); Carbon Dioxide 22 mmol/L (22-29); Chloride 106 mmol/L (98-107); Globulin 2.5 g/dL (1.3-4.6); Glucose 111 mg/dL (65-115); Magnesium 2.9 mg/dL (1.7-2.3); Osmolality Calculated 289 mOsm/kg (285-295); Potassium 4.4 mmol/L (3.5-5.1); Sodium 137 mmol/L (136-145); Total Protein 5.9 g/dL (6.6-8.7)
[2024-07-08 06:17] LABS: Creatinine Clr Calc Pharmacy 38.1905
--- NOTE | 2024-07-08 06:56 | USCV_ITS ---
Aura Villalpando Age: 88 Gender: F : 1935 Exam Date: 07/08/2024 09:13 Ordering Phys: Livan Turner MD Technologist: Estrada Martines [place] [facility] [place]ication: chest pain BP: 130 / 78 HR: 62 Rhythm: Sinus Technical Quality: Adequate MEASUREMENTS (Male / Female) Normal Values 2D ECHO LV Diastolic Diameter PLAX 4.0 cm 4.2 - 5.9 / 3.9 - 5.3 cm IVS Diastolic Thickness 1.4 cm 0.6 - 1.0 / 0.6 - 0.9 cm IVS Systolic Thickness 1.8 cm LVPW Diastolic Thickness 1.9 cm 0.6 - 1.0 / 0.6 - 0.9 cm LVPW Systolic Thickness 2.3 cm LVOT Diameter 2.0 cm LV Ejection Fraction 2D Teich 68.7 % LV Ejection Fraction MOD 4C 66.2 % LV Ejection Fraction MOD 2C 70.4 % LV Ejection Fraction 2C AL 72.3 % LA Diameter 4.2 cm RA Systolic Volume 4C AL 21.8 ml RA Systolic Volume 4C MOD 20.0 ml LA Sys Volume AL 32.8 cm cubed LA Sys Volume Index AL 17.2 cm cubed/m squared Aorta at Sinotubular Diameter 2.5 cm IVC Diameter 1.6 cm M-MODE LA Ao Ratio MM 0.9 AV Cusp Separation MM 1.1 cm DOPPLER AV Peak Velocity 134.0 cm/s LVOT Peak Velocity 110.0 cm/s AV Area Cont Eq vti 3.1 cm squared AV Area Cont Eq pk 2.6 cm squared MV Peak Velocity 133.0 cm/s MV Area PHT 3.0 cm squared Mitral E to A Ratio 0.6 TV Peak Velocity 255.0 cm/s TR Peak Velocity 285.0 cm/s TR Peak Gradient 32.5 mmHg TR Mean Velocity 225.0 cm/s TR Mean Gradient 22.1 mmHg TR Velocity Time Integral 92.4 cm PV Peak Velocity 75.7 cm/s RV Ejection Time 0.3 s FINDINGS Left Ventricle Mild concentric left trickle hypertrophy. LV ejection fraction of 72%.Grade I/IV diastolic dysfunction (abnormal relaxation filling pattern), normal to mildly elevated filling pressures. Right Ventricle The right ventricle is normal in size and function. Right Atrium The right atrium is normal in size. Left Atrium The left atrium is normal in size. Mitral Valve Mild-moderate mitral valve regurgitation. Aortic Valve Minimally thickened aortic valve. Trace to mild aortic valve regurgitation. Tricuspid Valve Trace to mild tricuspid valve regurgitation. Pulmonic Valve No gross abnormalities noted Pericardium Normal pericardium without effusion. Aorta Normal ascending aorta dimension. IVC The inferior vena cava appears normal. CONCLUSIONS Mild concentric left trickle hypertrophy. LV ejection fraction of 72%.Grade I/IV diastolic dysfunction (abnormal relaxation filling pattern), normal to mildly elevated filling pressures. Mild-moderate mitral valve regurgitation. Minimally thickened aortic valve. Trace to mild aortic valve regurgitation. Trace to mild tricuspid valve regurgitation. Estimated pulmonary artery peak systolic pressure 20 mm of Hg. There is no pericardial effusion. There are no intracardiac masses. No similar previous studies are available for comparison Dr Arnoldo Chavez MD [facility] (Electronically Signed) Final Date: 08 July 2024 11:35 S
[2024-07-08 08:00] VITALS: BP 157/91; PULSE 79; RESP 14; TEMP 37; O2SAT 92
[2024-07-08] MEDS: pantoprazole DR 40 mg Tablet PO (09:02)
[2024-07-08] MEDS: rivaroxaban 10 mg Tablet 15 MG PO (09:03)
[2024-07-08] MEDS: amlodipine 5 mg Tablet PO (09:03)
[2024-07-08] MEDS: aspirin 81 mg EC Tablet PO (09:04)
[2024-07-08 09:27] VITALS: BP 122/79; BP 145/83; BP 163/86
--- NOTE | 2024-07-08 10:19 | P.DS_ITS ---
Discharge Providers Date of Admission: 07/07/24 11:18 Date of Discharge: July 08, 2024 Attending Provider at Admission: Livan Turner MD Attending Provider at Discharge: Prosper Lomeli Primary Care Provider: Bhaskar Alejandra MD Diagnoses at Discharge Discharge Diagnosis (1) Chest pain: Status: Acute (2) Uncontrolled hypertension: Status: Acute (3) Weakness: Status: Acute (4) Fall: Status: Acute (5) UTI (urinary tract infection): Status: Acute Qualifiers: Hematuria presence: with hematuria Urinary tract infection type: site unspecified Qualified Code(s): N39.0 - Urinary tract infection, site not specified; R31.9 - Hematuria, unspecified Reason for Visit Reason for Visit: FALL Brief History: Aura Villalpando is a 88 year old female presenting to the emergency department with weakness and chest discomfort. She reports around 6 AM when she woke up to go to the bathroom, she felt very weak. She had some chest discomfort, subst ernal which she really cannot describe other than it does not radiate. No shortness of breath. She reports she slid down to the floor, and really did not hurt anything but was found laying there this morning. She reports she feels like she still has a twinge of a little bit of discomfort. She did receive aspirin and route by ambulance services. Her most recent ER visit was on 07/03 for hypertension and weakness. At that point she was given clonidine, myocardial infarction ruled out, and was sent home with a prescription for Norvasc. Heart rate was 52 when she was in the emergency department there, so her carvedilol was stopped. She visited her primary care provider on July 04, and restarted her carvedilol the next day. She reports no fever, significant cough. She was a little nauseated yesterday. She may have had a loose stool several days ago. No blood in emesis or stool no black or tarry stool. Reports occasionally she will get food caught in her esophagus, and vomit to clear this. She never has any trouble with fluids. In the emergency department she got a dose of Rocephin. Hospital Course Hospital Course She was started on ceftriaxone for treatment of suspected urinary tract infection. TSH was assessed and was normal. Carvedilol was withheld due to bradycardia and she is advised to avoid beta-blockers. Orthostatic blood pressure was checked and severely positive, blood pressure laying 163/86, standing 122/79. She is advised to discontinue and avoid amlodipine. Exercise caution with further optimization of blood pressure being mindful of standing blood pressures. We discussed on 3 separate occasions with her and her son regarding orthostatic hypotension, precautions, blood pressure targets and she is given printed instructions at discharge. She is given prescription for losartan as needed 25 mg to help control elevated blood pressure, to take with blood pressures being 170 or above systolic over 95 or above diastolic measured while sitting. She is continuing on spironolactone, although cautioned against dehydration which may exacerbate orthostatic hypotension. We also discussed the consideration of her living alone with limited support at home, obtaining medic alert button to call for help. She knows to sit down or lie down immediately in case she is lightheaded to avoid presyncope or syncope fall and trauma. Echocardiogram was assessed and found to have ejection fraction 72%, grade 1 diastolic dysfunction, trace to mild AVR. Mild TVR. She will complete antibiotic course with cefdinir for UTI. As an aside she also noted intermittent dysphagia with solid foods getting stuck in her esophagus sometimes. She is not tolerant of calcium channel blockers due to severe orthostasis. She is instructed to continue mechanical soft diet, aspiration precautions. Please follow-up with her for reassessment, in case of progressive or bothersome symptoms consider further assessment with barium swallow, consideration of surgical assessment/balloon dilation if indicated. Physical Exam Narrative: Accompanied by her son over the 3 visits. Const: COMMON NORMALS: patient oriented x3 and alert GENERAL APPEARANCE: cooperative ORIENTATION/CONSCIOUSNESS: Yes awake HENMT: COMMON NORMALS: oropharynx normal Neck/C-Spine: COMMON NORMALS: no JVD Resp: COMMON NORMALS: normal respiratory effort and clear to auscultation bilaterally AUSCULTATION: clear to auscultation bilaterally Cardio: COMMON NORMALS: no JVD, regular rhythm, S1 normal heart sound present, S2 normal heart sound present and No murmurs present (Cardio) RHYTHM: regular rhythm HEART SOUNDS: S1 normal heart sound present and S2 normal heart sound present GI: COMMON NORMALS: Normal to inspection, nondistended, normoactive bowel sounds present, Soft to palpation and non-tender PALPATION: Yes Soft to palpation Extremity: COMMON NORMALS: no joint enlargement and no pedal edema Neuro: COMMON NORMALS: patient oriented x3 and moves all extremities SENSORIUM/ORIENTATION: Yes alert Skin: COMMON NORMALS: no rashes or lesions noted GENERAL SKIN EXAM: no rashes or lesions noted Discharge Data Studies Completed and Pending Completed Studies During Hospitalization Category Date Time Status CT head wo con* [id number] Stat Cat Scan 07/07/24 09:39 Completed XR ankle LT min 3V* [id number] Stat Exams 07/07/24 09:41 Completed XR chest 1V portable [id number] Stat Exams 07/07/24 09:39 Completed XR pelvis 1-2V* [id number] Stat Exams 07/07/24 09:41 Completed Pending at discharge Category Date Time Status Urine Culture Stat Lab 07/07/24 10:35 Results CV. echo complete* [id number] Routine Ultrasound 07/08/24 06:56 Taken Radiology Impressions Chest X-Ray 07/07/24 09:39 IMPRESSION: 1. Mild cardiac enlargement. No acute process identified. Head CT 07/07/24 09:39 IMPRESSION: No acute intracranial abnormality. Ankle X-Ray 07/07/24 09:41 IMPRESSION: 1. Soft tissue swelling. No fracture. Pelvis X-Ray 07/07/24 09:41 IMPRESSION: 1. No acute pelvic fracture. Laboratory Results WBC 7.30 10^3/uL (3.29-11.43) 07/08/24 05:25 RBC 4.37 10^6/uL (3.85-5.65) 07/08/24 05:25 Hgb 13.40 g/dL (11.27-16.99) 07/08/24 05:25 Hct 39.9 % (36-47) 07/08/24 05:25 MCV 91.3 fl (85-98) 07/08/24 05:25 MCH 30.7 pg (27-33) 07/08/24 05:25 MCHC 33.6 g/dL (30-55) 07/08/24 05:25 RDW 13.6 % (12.1-15.1) 07/08/24 05:25 Plt Count 220 10^3/cmm (157-399) 07/08/24 05:25 MPV 10.9 fL (7.4-10.4) H 07/08/24 05:25 Neut % (Auto) 49.4 % 07/08/24 05:25 Lymph % (Auto) 38.9 % 07/08/24 05:25 [place] % (Auto) 9.6 % 07/08/24 05:25 Eos % (Auto) 1.5 % 07/08/24 05:25 Baso % (Auto) 0.3 % 07/08/24 05:25 Neut # (Auto) 3.61 10^3/uL (1.8-7.7) 07/08/24 05:25 Lymph # (Auto) 2.8 10^3/uL (0.8-4.8) 07/08/24 05:25 [place] # (Auto) 0.7 10^3/uL (0.2-0.9) 07/08/24 05:25 Eos # (Auto) 0.1 10^3/uL (0.0-0.8) 07/08/24 05:25 Baso # (Auto) 0.0 10^3/uL (0.0-0.1) 07/08/24 05:25 Nucleated RBC % (auto) 0 % 07/08/24 05:25 Nucleated RBCs # 0.0 /100WBC 07/08/24 05:25 PT 17.40 SECONDS (12.1-14.9) H 07/07/24 09:44 INR 1.38 (0.8-1.2) H 07/07/24 09:44 Sodium 137 mmol/L (136-145) 07/08/24 05:25 Potassium 4.4 mmol/L (3.5-5.1) 07/08/24 05:25 Chloride 106 mmol/L (98-107) 07/08/24 05:25 Carbon Dioxide 22 mmol/L (22-29) 07/08/24 05:25 Anion Gap 13.4 (5-19) 07/08/24 05:25 BUN 25 mg/dL (8-23) H 07/08/24 05:25 Creatinine 1.0 mg/dL (0.5-0.9) H 07/08/24 05:25 GFR Calculation Not Reportable 07/08/24 05:25 Glucose 111 mg/dL (65-115) 07/08/24 05:25 Calculated Osmolality 289 mOsm/kg (285-295) 07/08/24 05:25 Calcium 8.1 mg/dL (8.5-10.5) L 07/08/24 05:25 Magnesium 2.9 mg/dL (1.7-2.3) H 07/08/24 05:25 Total Bilirubin 1.0 mg/dL (0.15-1.2) 07/08/24 05:25 AST 21 U/L (0-32) 07/08/24 05:25 ALT 14 U/L (0-33) 07/08/24 05:25 Alkaline Phosphatase 113 U/L (35-105) H 07/08/24 05:25 Creatine Kinase 44 U/L (26-192) 07/07/24 09:44 Troponin T Baseline 19 ng/L (0-10) H 07/07/24 09:44 Troponin T 120 Minute 17.00 ng/L (0-10) H 07/07/24 11:41 Delta Troponin T -2.00 ABS# (0-10) L 07/07/24 11:41 Troponin T Hi Sens 6Hr 18.77 ng/L (0-10) H 07/07/24 15:31 Troponin T Hi Sens 6Hr Delta -0.23 ng/L (0-12) L 07/07/24 15:31 Total Protein 5.9 g/dL (6.6-8.7) L 07/08/24 05:25 Albumin 3.4 g/dL (3.5-5.2) L 07/08/24 05:25 Globulin 2.5 g/dL (1.3-4.6) 07/08/24 05:25 TSH 1.71 uIU/mL (0.27-4.20) 07/07/24 09:44 Urine Color Yellow (Yellow) 07/07/24 10:35 Urine Appearance Cloudy (CLEAR) A 07/07/24 10:35 Urine pH 6.5 (5-7) 07/07/24 10:35 Ur Specific [place] 1.008 (1.005-1.030) 07/07/24 10:35 Urine Protein Negative (Negative) 07/07/24 10:35 Urine Glucose (UA) Negative (Normal) 07/07/24 10:35 Urine Ketones Negative (Negative) 07/07/24 10:35 Urine Blood Negative (Negative) 07/07/24 10:35 Urine Nitrate Positive (Negative) A 07/07/24 10:35 Urine Bilirubin Negative (Negative) 07/07/24 10:35 Urine Urobilinogen 0.2 mg/dL (Negative) 07/07/24 10:35 Ur Leukocyte Esterase Trace (Negative) A 07/07/24 10:35 Urine RBC 3-5 /hpf (0-2) 07/07/24 10:35 Urine WBC 6-10 /hpf (0-5) 07/07/24 10:35 Ur Squamous Epith Cells 0-5 /hpf (0-5) 07/07/24 10:35 Amorphous Sediment Not Reportable 07/07/24 10:35 Urine Bacteria 4+ /hpf (NONE) H 07/07/24 10:35 Hyaline Casts 0-4 /lpf H 07/07/24 10:35 Vitals Last Vital Signs Temp 98.6 F 07/08/24 08:00 Pulse 79 07/08/24 08:00 Resp 14 07/08/24 08:00 BP 163/86 07/08/24 09:27 Pulse Ox 92 07/08/24 08:00 O2 Del Method Room Air 07/08/24 08:00 Discharge Plan Discharge Patient Disposition: Home Health Service Condition: Stable Prescriptions: New cefdinir 300 mg capsule 300 mg PO BID 7 Days Qty: 14 0RF nitroglycerin 0.4 mg tablet, sublingual 0.4 mg sublingual Q5M PRN (Reason: chest pain) Qty: 25 0RF Rx Instructions: do not exceed 3 doses per episode losartan 25 mg tablet 25 mg PO DAILY PRN (Reason: hypertension) Qty: 30 0RF Rx Instructions: Take if sitting or standing blood pressure exceeds 170systolic (top) or 95 diastolic (bottom) Continued cholecalciferol (vitamin D3) 1,000 unit capsule 1,000 unit PO QPM ferrous sulfate 325 mg (65 mg iron) tablet,delayed release (DR/EC) 325 mg PO QAM ascorbic acid (vitamin C) 500 mg tablet 500 mg PO QAM vitamin B complex Tablet 1 tab PO QAM tramadol 50 mg tablet 50 mg PO BID PRN (Reason: Pain) Qty: 60 5RF multivitamin Tablet 1 tab PO QAM omega-3 fatty acids 1,000 mg Capsule 1,000 mg PO QPM acetaminophen 500 mg Tablet 500 mg PO Q6H PRN (Reason: Pain) cranberry 500 mg Capsule 500 - 1,000 mg PO QAM calcium carbonate-vitamin D3 600 mg-5 mcg (200 unit) Tablet 1 tab PO QAM zinc gluconate 50 mg Tablet 50 mg PO QPM vitamin E 268 mg (400 unit) Capsule 268 mg PO QPM allopurinol 100 mg tablet 100 mg PO QPM omeprazole 40 mg capsule,delayed release(DR/EC) 40 mg PO QAM PRN (Reason: Acid Reflux) spironolactone 25 mg tablet 12.5 mg PO DAILY Xarelto 15 mg tablet 15 mg PO DAILY Held atorvastatin 10 mg tablet 10 mg PO QPM Hold Instructions: Resume on 07/14/24. Discontinued amlodipine 5 mg tablet 5 mg PO DAILY PRN (Reason: Blood Pressure) Qty: 30 11RF carvedilol 12.5 mg tablet 12.5 mg PO BID Qty: 60 11RF Rx Instructions: must administer with a meal/food Discharge Orders: Discharge Order (Routine); Ordered 07/08/24 Ordered By: Prosper Lomeli Other Ambulatory Orders: DME: Walker (Order) Location: None Selected Ordered By: Prosper Lomeli Referrals: Bhaskar Alejandra MD [Primary Care Provider] - 4-7 days (We have notified your physician's clinic of the need for a follow-up appointment to be scheduled. If you have not heard from them within the next 2 business days, please call them directly. ) Discharge Diet: Cardiac and Soft Mechanical Discharge Activity: Increase activity as tolerated, Limit activity as instructed and Use walker/crutches as instructed Patient Instructions: Cefdinir (By mouth) (Omnicef), Angina (GEN), Hypotension (GEN), Bradycardia (GEN), Hypertension (GEN), Urinary Tract Infection in Older Adults (GEN), Syncope in Older Adults (GEN), Opioid Safety Activity Restrictions/Additional Instructions: Please discontinue and do not restart carvedilol, avoid beta-blockers due to slow heart rate. Stop amlodipine. Please note to you have significant orthostatic hypotension - meaning that your blood pressure decreases by a lot when you are standing or walking. Use your standing blood pressure as the reference. Treating blood pressure measures while you are sitting or laying may decrease your standing blood pressure too low causing you to feel faint, weak, at risk of fall and loss of consciousness. You are started on losartan to help control blood pressure when it is high. Take it if your blood pressure is 170 systolic (top number) or 95 diastolic (bottom number) or higher measured while sitting down. If you feel faint sit down or lie down immediately. Keep your walker at all times with use we can sit down on the walker otherwise sit down on the floor. Did not try to fight you the sensation as you may faint, fell down and injure yourself. Consider setting up medic a alert button to call for help in case you have difficulty getting up or run into any other travel. Please follow-up with your primary doctor for reassessment after episode of chest pain. Your troponin was mildly elevated. Your echocardiogram was ok. Complete antibiotic course with cefdinir for urinary tract infection. Follow-up with your primary doctor for reassessment. Continue mechanical soft diet due to intermittent swallowing difficulty. Follo w-up with your primary doctor for additional assessment and consideration of barium swallow assessment and surgery referral for balloon dilation. Seek medical attention in case of any worsening or new concerning symptoms. Discharge Attestations Time Spent in Discharge Care*: greater than 30 min Quality Metrics Clinical Quality Measures [ No reported AMI, CVA or VTE this stay] Coding Level of Care Code 50094 Total time (in minutes) for Discharge: 55 Diagnoses Chest pain R07.9 Uncontrolled hypertension I10 Weakness R53.1 Fall W19.XXXA Urinary tract infection with hematuria, site unspecified N39.0; R31.9 Hematuria presence: with hematuria Urinary tract infection type: site unspecified
[2024-07-08] MEDS: cefTRIAXone 1,000 mg SDV 1000 MG IVP (11:30)
[2024-07-08 12:00] VITALS: BP 151/84; PULSE 84; RESP 15; TEMP 36.7; O2SAT 97
--- NOTE | 2024-07-10 07:57 | DCPLANNER ---
Sent Referral to Home Health
== END 2024-07-08 13:00 | disposition home health service (06) ==
LOC: ER 13:03 → MEDSURG 13:47
PROVIDERS: Admitting Provider Internal Medicine; Emergency Provider Emergency Medicine; PCP Family Medicine; Visit Provider Internal Medicine
DX: R07.89 Other chest pain (principal); I10 Essential (primary) hypertension; R53.1 Weakness; Z91.81 History of falling; N39.0 Urinary tract infection, site not specified; R31.9 Hematuria, unspecified; R00.1 Bradycardia, unspecified; Z86.73 Personal history of transient ischemic attack (TIA), and cerebral infarction without residual deficits; E78.2 Mixed hyperlipidemia; Z86.718 Personal history of other venous thrombosis and embolism; I48.91 Unspecified atrial fibrillation
CPT/HCPCS: 36415; 70450; 71045; 72170; 73610; 80053; 81001; 82550; 83735; 84443; 84484; 85025; 85610; 87077; 87086; 87186; 93005; 93306; 96374; 96376; 97110; 97116; 97161; 99285; G0378; J0696

== ENCOUNTER → 2024-10-03 09:10 | Outpatient (BNVA) | payer MEDICARE, SELFPAY | PROVIDERS: PCP Family Medicine; Visit Provider Family Medicine | DX: I10 Essential (primary) hypertension (principal); I48.11 Longstanding persistent atrial fibrillation; R53.1 Weakness | CPT/HCPCS: 80053; 85025 ==

== ENCOUNTER → 2024-10-20 13:53 | Outpatient (BNVA) | payer MEDICARE, MEDICAID, SELFPAY | PROVIDERS: PCP Family Medicine; Visit Provider Nurse Practitioner Family | DX: M19.011 Primary osteoarthritis, right shoulder (principal); M25.511 Pain in right shoulder; W19.XXXA Unspecified fall, initial encounter | CPT/HCPCS: 73030 ==

== ENCOUNTER 2024-11-06 14:40 | Observation (INO) | payer MEDICARE, MEDICAID, SELFPAY ==
[2024-11-06] VITALS (40 sets, daily range): BP systolic 134–211; BP diastolic 80–121; PULSE 65–101; RESP 8–21; TEMP 36.4; O2SAT 86–96
--- NOTE | 2024-11-06 14:43 | XRR_ITS ---
PROCEDURE INFORMATION: Exam: XR Chest Exam date and time: 11/06/2024 2:59 PM Age: 88 years old Clinical indication: Pain; Angina pectoris; Additional info: Cp TECHNIQUE: Imaging protocol: Radiologic exam of the chest. Views: 1 view. COMPARISON: CR XR chest 1V portable [id number] 07/07/2024 9:55 AM FINDINGS: Lungs: Unremarkable. No consolidation. Pleural spaces: Unremarkable. No pleural effusion. No pneumothorax. Heart/Mediastinum: Unremarkable. No cardiomegaly. Bones/joints: Unremarkable. XR/XR chest 1V portable [id number] IMPRESSION: No acute findings.
[2024-11-06 14:51] LABS: Basophils % 0.5 %; Eosinophils # 0.1 10^3/uL (0.0-0.8); Eosinophils % 0.9 %; Hematocrit 45.4 % (36-47); Lymphocytes # 4.9 10^3/uL (0.8-4.8); Lymphocytes % 58.4 %; Mean Corpuscular HGB Conc 33.3 g/dL (30-55); Mean Corpuscular Hemoglobin 30.6 pg (27-33); Mean Corpuscular Volume 92.1 fl (85-98); Monocytes # 0.7 10^3/uL (0.2-0.9); Monocytes % 7.7 %; Neutrophils # 2.73 10^3/uL (1.8-7.7); Neutrophils % 32.4 %; Nucleated Red Blood Cells % 0 %; Platelet Count 257 10^3/cmm (157-399); Red Blood Count 4.93 10^6/uL (3.85-5.65); Red Cell Distribution Width 13.5 % (12.1-15.1); White Blood Count 8.44 10^3/uL (3.29-11.43)
--- NOTE | 2024-11-06 14:52 | ECG_ITS ---
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
[2024-11-06 15:02] LABS: INR 1.73 (0.8-1.2)
[2024-11-06 15:22] LABS: Troponin(5th) Baseline 20 ng/L (0-10)
[2024-11-06 15:23] LABS: Alanine Aminotransferase 19 U/L (0-33); Albumin Level 3.8 g/dL (3.5-5.2); Alkaline Phosphatase 140 U/L (35-105); Anion Gap 14.5 (5-19); Aspartate Amino Transferase 21 U/L (0-32); Blood Urea Nitrogen 21 mg/dL (8-23); Calcium 9.1 mg/dL (8.5-10.5); Carbon Dioxide 26 mmol/L (22-29); Chloride 103 mmol/L (98-107); Creatinine Clr Calc Pharmacy 35.0022; Globulin 3.1 g/dL (1.3-4.6); Glucose 103 mg/dL (65-115); Lipase 61 U/L (13-60); Osmolality Calculated 291 mOsm/kg (285-295); Potassium 4.5 mmol/L (3.5-5.1); Sodium 139 mmol/L (136-145); Total Bilirubin 1.4 mg/dL (0.15-1.2); Total Protein 6.9 g/dL (6.6-8.7)
--- NOTE | 2024-11-06 16:44 | ECG_ITS ---
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
[2024-11-06 18:33] LABS: Troponin 5 2HR 18.94 ng/L (0-10)
[2024-11-06 18:34] LABS: Troponin 5 2HR Delta -1.06 ABS# (0-10)
[2024-11-06] MEDS: nitroglycerin 1 gm/inch oint Pkt 0.5 INCH TOPICAL (18:49)
--- NOTE | 2024-11-06 19:04 | W.ED.CHESTPA ---
HPI - Chest Pain General: Chief Complaint: Chest Pain Stated Complaint: chest pain Time Seen by Provider: 11/06/24 18:13 History of Present Illness: This is an 88-year-old female with a history of DVT and pulmonary embolism who is chronically anticoagulated on Xarelto, hypertension, hyperlipidemia, TIA, hypertension, A-fib and her chart lists atherosclerotic heart disease but apparently she has had no stents or heart attacks in the past who presents emergency room with chest pain. This started earlier today probably around 1 or 2 PM. She says it was in her left chest. A pressure and ache. She still has some pain right now. She had been in the waiting room for some time. When she was moved back to her room and went and saw her she still has some mild chest pain. She is quite hypertensive. No altered mental status. No focal motor deficits. No fever. No cough. No new lower extremity swelling or calf pain. Related Data Home Medications ?Medication ?Instructions ?Recorded ?Confirmed cholecalciferol (vitamin D3) 25 1,000 unit PO QPM 09/15/19 10/20/24 mcg (1,000 unit) capsule ferrous sulfate 325 mg (65 mg 325 mg PO QAM 09/15/19 10/20/24 iron) tablet,delayed release ascorbic acid (vitamin C) 500 mg 500 mg PO QAM 03/28/20 10/20/24 tablet vitamin B complex 1 tab PO QAM 03/28/20 10/20/24 acetaminophen 500 mg tablet 500 mg PO Q6H PRN Pain 11/10/22 10/20/24 cranberry 500 mg capsule 500 - 1,000 mg PO QAM 11/10/22 10/20/24 multivitamin 1 tab PO QAM 11/10/22 10/20/24 omega-3 fatty acids 1,000 mg 1,000 mg PO QPM 11/10/22 10/20/24 capsule atorvastatin 10 mg tablet 10 mg PO QPM 04/17/24 10/20/24 calcium 600 mg (as 1 tab PO QAM 04/17/24 10/20/24 carbonate)-vitamin D3 5 mcg (200 unit) tablet omeprazole 40 mg capsule,delayed 40 mg PO QAM PRN Acid Reflux 04/17/24 10/20/24 release rivaroxaban 15 mg tablet (Xarelto) 15 mg PO DAILY 04/17/24 10/20/24 spironolactone 25 mg tablet 12.5 mg PO DAILY 04/17/24 10/20/24 vitamin E 268 mg (400 unit) capsule 268 mg PO QPM 04/17/24 10/20/24 zinc gluconate 50 mg tablet 50 mg PO QPM 04/17/24 10/20/24 Previous Rx's ?Medication ?Instructions ?Recorded tramadol 50 mg tablet 50 mg PO BID PRN Pain #60 tabs 04/17/24 nitroglycerin 0.4 mg sublingual 0.4 mg sublingual Q5M PRN chest 07/08/24 tablet pain #25 tabs allopurinol 100 mg tablet See Rx Instructions .Route 09/21/24 .COMPLEX #90 tabs losartan 25 mg tablet 25 mg PO DAILY hypertension #90 10/03/24 tabs Allergies Allergy/AdvReac Type Severity Reaction Status Date / Time codeine Allergy Unknown vomiting Verified 11/06/24 14:57 Review of Systems Narrative: Constitutional symptoms: Negative except as documented in HPI. Skin symptoms: Negative except as documented in HPI. Eye symptoms: Negative except as documented in HPI. ENMT symptoms: Negative except as documented in HPI. Respiratory symptoms: Negative except as documented in HPI. Cardiovascular symptoms: Negative except as documented in HPI. Gastrointestinal symptoms: Negative except as documented in HPI. Genitourinary symptoms: Negative except as documented in HPI. Musculoskeletal symptoms: Negative except as documented in HPI. Neurologic symptoms: Negative except as documented in HPI. Psychiatric symptoms: Negative except as documented in HPI. Endocrine symptoms: Negative except as documented in HPI. [facility] ED PFSH: Medical History Hx of TIA (transient ischemic attack) and stroke Pulmonary embolism Pulmonary acid aspiration syndrome Dyslipidemia Chronic intractable headache Fatigue Mixed hyperlipidemia Essential hypertension Pulmonary embolism DVT (deep venous thrombosis) Atrial fibrillation Atherosclerotic heart disease Chest pain Surgical History Hx of colonoscopy History of esophagogastroduodenoscopy (EGD) History of toe surgery Hx of cholecystectomy Family History Father Cancer Sister Cancer Other No family history of disorders Denies family history of Diabetes CAD (coronary artery disease) Clotting disorder Dementia Chronic kidney disease (CKD) Suicide Anesthesia complication Bleeding disorder Lung disease Stroke Social History Smoking and tobacco/nicotine status: never used tobacco/nicotine Alcohol intake: never Substance/Drug Use: never Marital status: / Physical Exam Narrative: EXAM NARRATIVE: General: Alert, no acute distress. Skin: Warm, dry. Head: Normocephalic, atraumatic. Neck: Supple, trachea midline. Eye: Extraocular movements are intact. Ears, nose, mouth and throat: mucosa moist. Cardiovascular: Regular, Normal peripheral perfusion. Respiratory: Lungs are clear to auscultation, respirations are non-labored, breath sounds are equal, Symmetrical chest wall expansion. Gastrointestinal: Soft, Nontender, Non distended Musculoskeletal: Normal ROM, no deformity. Neurological: Alert and oriented, No focal neurological deficit observed. Psychiatric: Cooperative, appropriate mood & affect. Course Vital Signs: Vital signs: Vital Signs Temperature 97.5 F L 11/06/24 14:54 Pulse Rate 75 11/06/24 19:01 Respiratory Rate 16 11/06/24 19:01 Blood Pressure 183/96 11/06/24 19:01 Pulse Oximetry 91 11/06/24 19:01 Oxygen Delivery Me thod Room Air 11/06/24 19:01 MDM - Chest Pain Medical Decision Making Differential diagnosis for patient with chest pain includes but is not limited to and based on the above HPI, review of systems and physical exam: Pneumonia. unstable angina. angina. Acute coronary syndrome / ID. Pulmonary embolism. Costochondritis / musculoskeletal. Pleurisy. Pericarditis. Esophageal spasm. Pancreatis. Cholecystitis. Orders placed to evaluate differential diagnosis based on the above differential, HPI and physical exam EKG: Time 1452. Rate 71. Normal sinus rhythm, No ST-T changes, no ectopy, normal MO & QRS intervals, This was reviewed and interpreted by the ER physician at 1500. Repeat EKG: Time 1710. Rate 68. Normal sinus rhythm, No ST-T changes, no ectopy, normal MO & QRS intervals, This was reviewed and interpreted by the ER physician at 1715 Chest x-ray: No acute process. No infiltrate. No pneumothorax. This was reviewed and interpreted by myself the emergency room physician. I also reviewed the radiology report. Lab Review: Laboratory results were reviewed and interpreted by myself the emergency room physician. Lab work is fairly unremarkable. No leukocytosis. No anemia. Pending creatinine at baseline of 21 and 1.1. Initial troponin was slightly elevated at 20. Repeat is 19. No change. I reviewed the patient's medical record. Reexamination: Given patient's persistent elevated blood pressure, continued chest pain and risk factors I feel like it is best that she be observed overnight. Placed on Nitropatch. Her pressure still up and she started having chest pain again so I have placed her on a Cardene drip and given her some morphine. Consultation: I spoke with Dr. Arshad who is on-call for the hospitalist service who agrees to admission. Assessment and plan: Chest pain Accelerated hypertension -I discussed the patient with the hospitalist on-call who is admitting the patient. - Discussed findings and plan with patient. Answered any questions. - All laboratory values were reviewed and interpreted personally by myself, the ER physician - All imaging was reviewed and interpreted personally by myself, the ER physician. - Evaluation and treatment of this problem were appropriate in the emergency setting Lab Data 11/06/24 14:42 11/06/24 14:42 Radiology Impressions Chest X-Ray 11/06/24 14:43 IMPRESSION: No acute findings. Laboratory Results WBC 8.44 10^3/uL (3.29-11.43) 11/06/24 14:42 RBC 4.93 10^6/uL (3.85-5.65) 11/06/24 14:42 Hgb 15.10 g/dL (11.27-16.99) 11/06/24 14:42 Hct 45.4 % (36-47) 11/06/24 14:42 MCV 92.1 fl (85-98) 11/06/24 14:42 MCH 30.6 pg (27-33) 11/06/24 14:42 MCHC 33.3 g/dL (30-55) 11/06/24 14:42 RDW 13.5 % (12.1-15.1) 11/06/24 14:42 Plt Count 257 10^3/cmm (157-399) 11/06/24 14:42 MPV 11.0 fL (7.4-10.4) H 11/06/24 14:42 Neut % (Auto) 32.4 % 11/06/24 14:42 Lymph % (Auto) 58.4 % 11/06/24 14:42 [place] % (Auto) 7.7 % 11/06/24 14:42 Eos % (Auto) 0.9 % 11/06/24 14:42 Baso % (Auto) 0.5 % 11/06/24 14:42 Neut # (Auto) 2.73 10^3/uL (1.8-7.7) 11/06/24 14:42 Lymph # (Auto) 4.9 10^3/uL (0.8-4.8) H 11/06/24 14:42 [place] # (Auto) 0.7 10^3/uL (0.2-0.9) 11/06/24 14:42 Eos # (Auto) 0.1 10^3/uL (0.0-0.8) 11/06/24 14:42 Baso # (Auto) 0.0 10^3/uL (0.0-0.1) 11/06/24 14:42 Nucleated RBC % (auto) 0 % 11/06/24 14:42 Nucleated RBCs # 0.0 /100WBC 11/06/24 14:42 PT 21.40 SECONDS (12.1-14.9) H 11/06/24 14:42 INR 1.73 (0.8-1.2) H 11/06/24 14:42 Sodium 139 mmol/L (136-145) 11/06/24 14:42 Potassium 4.5 mmol/L (3.5-5.1) 11/06/24 14:42 Chloride 103 mmol/L (98-107) 11/06/24 14:42 Carbon Dioxide 26 mmol/L (22-29) 11/06/24 14:42 Anion Gap 14.5 (5-19) 11/06/24 14:42 BUN 21 mg/dL (8-23) 11/06/24 14:42 Creatinine 1.1 mg/dL (0.5-0.9) H 11/06/24 14:42 GFR Calculation Not Reportable 11/06/24 14:42 Glucose 103 mg/dL (65-115) 11/06/24 14:42 Calculated Osmolality 291 mOsm/kg (285-295) 11/06/24 14:42 Calcium 9.1 mg/dL (8.5-10.5) 11/06/24 14:42 Total Bilirubin 1.4 mg/dL (0.15-1.2) H 11/06/24 14:42 AST 21 U/L (0-32) 11/06/24 14:42 ALT 19 U/L (0-33) 11/06/24 14:42 Alkaline Phosphatase 140 U/L (35-105) H 11/06/24 14:42 Troponin T Baseline 20 ng/L (0-10) H 11/06/24 14:42 Troponin T 120 Minute 18.94 ng/L (0-10) H 11/06/24 18:05 Delta Troponin T -1.06 ABS# (0-10) L 11/06/24 18:05 Total Protein 6.9 g/dL (6.6-8.7) 11/06/24 14:42 Albumin 3.8 g/dL (3.5-5.2) 11/06/24 14:42 Globulin 3.1 g/dL (1.3-4.6) 11/06/24 14:42 Lipase 61 U/L (13-60) H 11/06/24 14:42 All radiology interpretation(s) finalized by discharge Discharge Plan Discharge Patient Disposition: Placed in Observation Clinical Impression: Chest pain, Accelerated hypertension Coding Level of Care Code ED Pickling Operator for Gayle Benitez
--- NOTE | 2024-11-06 19:51 | PM.HP ---
Providers/Chief Complaint Primary Care Provider: Bhaskar Alejandra MD Chief Complaint: chest pain History of Present Illness Aura Villalpando is a 88 year old female with history of DVT PE take Xarelto on daily basis, hypertension, lives alone, presented to the hospital with chief complaint of chest discomfort. Patient is stating that she woke up this morning around 6 AM, she made a cup of tea, then started doing roland then she spent some time on her iPad, started experiencing chest pain at rest which lasted until 2 hours, she did not notice any nausea, vomiting or diaphoresis, she is describing her chest pain as discomfort difficult to describe. She took nitroglycerin EMS gave her therapeutic dose of aspirin. EKG is not showing any ischemic or infarctive changes, troponin trending down, D-dimer unremarkable she is compliant with her medications. She was hypertensive, she was started on Cardene drip blood pressure at the time of evaluation is 165/100 mmHg, patient not endorsing any active chest pain No previous history of SC or coronary artery disease Patient uses a walker and a cane at home Patient did not take her blood pressure medications this morning Review of Systems Const: Denies: fever(s) Eyes: Denies: change in vision ENMT: Denies: throat pain Card: Reports: chest pain Resp: Denies: dyspnea GI: Denies: abdominal pain : Denies: flank pain Medications/Allergies Home Medications ?Medication ?Instructions ?Recorded ?Confirmed ?Last Taken ?Type cholecalciferol (vitamin D3) 25 1,000 unit PO QPM 09/15/19 10/20/24 07/06/24 History mcg (1,000 unit) capsule ferrous sulfate 325 mg (65 mg 325 mg PO QAM 09/15/19 10/20/24 07/06/24 History iron) tablet,delayed release ascorbic acid (vitamin C) 500 mg 500 mg PO QAM 03/28/20 10/20/24 07/06/24 History tablet vitamin B complex 1 tab PO QAM 03/28/20 10/20/24 07/06/24 History acetaminophen 500 mg tablet 500 mg PO Q6H PRN Pain 11/10/22 10/20/24 07/06/24 History cranberry 500 mg capsule 500 - 1,000 mg PO QAM 11/10/22 10/20/24 07/06/24 History multivitamin 1 tab PO QAM 11/10/22 10/20/24 07/06/24 History omega-3 fatty acids 1,000 mg 1,000 mg PO QPM 11/10/22 10/20/24 07/06/24 History capsule atorvastatin 10 mg tablet 10 mg PO QPM 04/17/24 10/20/24 07/06/24 History calcium 600 mg (as 1 tab PO QAM 04/17/24 10/20/24 07/06/24 History carbonate)-vitamin D3 5 mcg (200 unit) tablet omeprazole 40 mg capsule,delayed 40 mg PO QAM PRN Acid Reflux 04/17/24 10/20/24 07/06/24 History release rivaroxaban 15 mg tablet (Xarelto) 15 mg PO DAILY 04/17/24 10/20/24 07/06/24 History spironolactone 25 mg tablet 12.5 mg PO DAILY 04/17/24 10/20/24 07/06/24 History tramadol 50 mg tablet 50 mg PO BID PRN Pain #60 tabs 04/17/24 10/20/24 07/06/24 Rx vitamin E 268 mg (400 unit) capsule 268 mg PO QPM 04/17/24 10/20/24 07/06/24 History zinc gluconate 50 mg tablet 50 mg PO QPM 04/17/24 10/20/24 07/06/24 History nitroglycerin 0.4 mg sublingual 0.4 mg sublingual Q5M PRN chest 07/08/24 10/20/24 Unknown Rx tablet pain #25 tabs allopurinol 100 mg tablet See Rx Instructions .Route 09/21/24 10/20/24 Unknown Rx .COMPLEX #90 tabs losartan 25 mg tablet 25 mg PO DAILY hypertension #90 10/03/24 10/20/24 Unknown Rx tabs Allergies Allergy/AdvReac Type Severity Reaction Status Date / Time codeine Allergy Unknown vomiting Verified 11/06/24 14:57 PFSH Acute PFSH: Medical History Hx of TIA (transient ischemic attack) and stroke Pulmonary embolism Pulmonary acid aspiration syndrome Dyslipidemia Chronic intractable headache Fatigue Mixed hyperlipidemia Essential hypertension Pulmonary embolism DVT (deep venous thrombosis) Atrial fibrillation Atherosclerotic heart disease Chest pain Surgical History Hx of colonoscopy History of esophagogastroduodenoscopy (EGD) History of toe surgery Hx of cholecystectomy Family History Father Cancer Sister Cancer Other No family history of disorders Denies family history of Diabetes CAD (coronary artery disease) Clotting disorder Dementia Chronic kidney disease (CKD) Suicide Anesthesia complication Bleeding disorder Lung disease Stroke Social History Smoking and tobacco/nicotine status: never used tobacco/nicotine Alcohol intake: never Substance/Drug Use: never Marital status: / Vitals/I&O/Wt Last Vital Signs Temp 97.5 F L 11/06/24 14:54 Pulse 75 11/06/24 19:01 Resp 16 11/06/24 19:01 BP 183/96 11/06/24 19:01 Pulse Ox 91 11/06/24 19:01 O2 Del Method Room Air 11/06/24 19:01 Weight last 48 hrs Weight 81.647 kg Physical Exam Narrative: Patient is chest pain-free Lymphedema of lower extremity GCS 15 NIH 0 No active discomfort S1, S2 Currently patient is on room air saturating 88 to 89% No active shortness of breath Abdomen nontender No active stridor or wheezing Pleasant and cooperative Data 11/06/24 14:42 11/06/24 14:42 A&P Assessment and plan (1) Uncontrolled hypertension: (2) Chest pain: (3) Orthostatic hypotension: (4) Atrial fibrillation: Qualifiers: Atrial fibrillation type: longstanding persistent Qualified Code(s): I48.11 - Longstanding persistent atrial fibrillation (5) DVT (deep venous thrombosis): Qualifiers: DVT location: lower extremity Affected thrombotic vein of extremity: femoral Chronicity: chronic Laterality: unspecified laterality Qualified Code(s): I82.519 - Chronic embolism and thrombosis of unspecified femoral vein (6) Generalized weakness: Plan Unstable angina Troponin trending down No previous history of SC or coronary disease Previous echo showed preserved action fraction No active chest pain at the time of my evaluation D-dimer unremarkable EKG not showing any ischemic or infarctive changes Will request test test in the morning Hypertensive emergency: Currently on nicardipine drip at lowest possible dose of 3, I do not want to reduce her MAP more than 25% neck 6 to 8 hours No active signs of press syndrome I would continue her home regimen of losartan, considering orthostatic hypotension beta-blockers were avoided in the past, she does have chronic kidney disease I would not combine losartan with spironolactone, she does have lymphedema, will use isosorbide mononitrate along losartan and hydralazine Patient is optimization of antihypertensive regimen before discharge Chronic kidney disease: No acute decompensation Patient lives alone: Uses a cane and a walker at home Review of records revealed that patient was experiencing dysphagia and she was put on mechanical soft diet at this point patient is not endorsing any aspiration or dysphagia History of DVT/PE continue Xarelto DNR/DNI Cardiac diet N.p.o. 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
--- NOTE | 2024-11-06 20:44 | ECG_ITS ---
[facility] Test Date: 2024-11-07 Pat Name: Aura Villalpando Department: Room: ICU06 Gender: Female Resident Manager: : 1935 Requested By: Salo Merchant Order Number: [id number] Reading MD: ZION SY Measurements Intervals [place] Rate: 80 P: 49 VT: 201 QRS: -63 QRSD: 111 T: 14 QT: 411 QTc: 477 Interpretive Statements SINUS RHYTHM WITH FREQUENT VENTRICULAR PREMATURE COMPLEXES PATTERN CONSISTENT WITH PULMONARY DISEASE LEFT ANTERIOR FASCICULAR BLOCK [QRS AXIS <= -45, QR IN I, RS IN II] Compared to ECG 11/06/2024 17:10:59 Ventricular premature complex(es) now present Left anterior fascicular block now present Electronically Signed On 11-07-2024 23:46:17 PROPULSION GENERATOR REPAIRER by ZION SY [email or web address] [id number]
[2024-11-06] MEDS: ondansetron 2 mg/ML SDV 2 mL 4 MG IVP (20:45)
[2024-11-06] MEDS: morphine 4 mg/mL SDV 1 mL 2 MG IVP (20:47)
[2024-11-06] MEDS: nicardipine 20 MG/200 ML PREMIX 50 MG IV (20:50)
[2024-11-06 21:09] LABS: D Dimer 0.92 ug/mLFEU (0-0.59)
--- NOTE | 2024-11-06 21:28 | ECG_ITS ---
[facility] Test Date: 2024-11-07 Pat Name: Aura Villalpando Department: Room: Gender: Female Commercial Analyst: : 1935 Requested By: Speedy Arshad Order Number: [id number] Mary Ann MD: Willie Pierson M.D. Interpretive Statements Lung unchanged pre/post procedure; Intraprocedure shortess of breath; Symptoms resoled by discharge [id number] [id number]
[2024-11-06 22:00] LABS: Troponin 5 6HR 19.24 ng/L (0-10)
[2024-11-06 22:02] LABS: Troponin 5 6HR Delta -0.76 ng/L (0-12)
[2024-11-06 22:02] LABS: NT Pro B Type Natriuretic Pept 468 pg/mL (0-450)
--- NOTE | 2024-11-06 22:06 | PC.NURSE ---
Hospitalist notified of pt's bp 134/103 was consulted about discontinuing the Nicardipine drip. Physician gave the verbal to continue running the drip at 3mg.
[2024-11-06] MEDS: FUROsemide 20 mg Tablet PO (22:29)
--- NOTE | 2024-11-06 22:38 | PC.NURSE ---
Attempted to contact hospitalist in regards to pt's bp being 134/91 while on the nicardapine drip. Physician in a code in ICU at the time. Pt's medication was paused and ER physician was notified. Awaiting call back from Hospitalist.
--- NOTE | 2024-11-06 23:42 | PC.NURSE ---
Hospitalist notified of the patient's infusion being truned back on and gave katty verbal order to discontinue the drip and administer oral medication.
[2024-11-06] MEDS: hyDRALAzine 25 mg Tablet PO (23:59)
[2024-11-07] VITALS (95 sets, daily range): BP systolic 100–169; BP diastolic 53–93; PULSE 58–90; RESP 10–20; TEMP 36.3–36.6; O2SAT 89–95
[2024-11-07 05:26] LABS: Basophils # 0.1 10^3/uL (0.0-0.1); Basophils % 0.6 %; Eosinophils # 0.1 10^3/uL (0.0-0.8); Eosinophils % 1.4 %; Hematocrit 46.6 % (36-47); Lymphocytes # 3.3 10^3/uL (0.8-4.8); Lymphocytes % 37.5 %; Mean Corpuscular HGB Conc 32.4 g/dL (30-55); Mean Corpuscular Hemoglobin 30.3 pg (27-33); Mean Corpuscular Volume 93.6 fl (85-98); Mean Platelet Volume 10.6 fL (7.4-10.4); Monocytes # 0.8 10^3/uL (0.2-0.9); Monocytes % 8.8 %; Neutrophils # 4.47 10^3/uL (1.8-7.7); Neutrophils % 51.5 %; Nucleated Red Blood Cells % 0 %; Platelet Count 230 10^3/cmm (157-399); Red Blood Count 4.98 10^6/uL (3.85-5.65); Red Cell Distribution Width 13.5 % (12.1-15.1); White Blood Count 8.67 10^3/uL (3.29-11.43)
[2024-11-07 05:42] LABS: Blood Urea Nitrogen 21 mg/dL (8-23); Calcium 8.7 mg/dL (8.5-10.5); Carbon Dioxide 24 mmol/L (22-29); Chloride 103 mmol/L (98-107); Creatinine Clr Calc Pharmacy 38.5891; Glucose 107 mg/dL (65-115); Magnesium 1.9 mg/dL (1.7-2.3); Osmolality Calculated 289 mOsm/kg (285-295); Sodium 138 mmol/L (136-145)
--- NOTE | 2024-11-07 08:36 | PC.PHAR ---
Addendum entered by Melba Cardoso 11/07/24 09:02: Amlodipine 5 mg daily prn last fill at [facility] 08/17/24 30ds. Not a current medication-removed from medication list. Original Note: Pt has Amlodipine 5mg daily as needed-on her med list. last fill 08/09/24 30ds. She is unsure if she still takes this medication. [facility] last filled 07/07/23 and [facility] opens at 9am for verification.
[2024-11-07] MEDS: regadenoson 0.4 Mg/5 ml Syringe IVP (10:41)
--- NOTE | 2024-11-07 11:10 | PC.NURSE ---
Report was given to Hattie LUO. Patient is going from the stress test to CSU instead of coming back to the ICU. Family was notified.
[2024-11-07] MEDS: rivaroxaban 10 mg Tablet 15 MG PO (12:05)
[2024-11-07] MEDS: losartan 50 mg Tablet 25 MG PO (12:06)
[2024-11-07] MEDS: pantoprazole 40 mg SDV IVP (12:07)
[2024-11-07] MEDS: isosorbide mononitrate 20 mg Tablet PO ×2 (12:07→17:29)
[2024-11-07] MEDS: allopurinol 100 mg Tablet PO (12:07)
--- NOTE | 2024-11-07 12:07 | PC.NURSE ---
Patient camed from stress test to CSU, she was a ICU transferr, came to unit at 1145.
--- NOTE | 2024-11-07 13:41 | PC.NURSE ---
Provider updated with current blood pressure of 104/64, order to hold hydralazine 50mg.
--- NOTE | 2024-11-07 13:56 | ECG_ITS ---
[facility]: [facility]24[facility]07 Pat Name: Aura Villalpando Department: Room: 102 Gender: Female Real Estate Management Specialist: : 1935 Requested By: Speedy Arshad Order Number: [id number] Reading MD: SPEEDY SY Measurements Intervals [place] Rate: 86 P: 37 [place]: 204 QRS: -31 QRSD: 98 T: 42 QT: 386 QTc: 463 Interpretive Statements SINUS RHYTHM LEFT AXIS DEVIATION [QRS AXIS < -30] PATTERN CONSISTENT WITH PULMONARY DISEASE Compared to ECG 11/07/2024 03:09:26 Left-axis deviation now present Ventricular premature complex(es) no longer present Left anterior fascicular block no longer present Electronically Signed On 11-07-2024 23:45:29 AIRCRAFT ENGINE SPECIALIST by SPEEDY SY [email or web address] [id number]
--- NOTE | 2024-11-07 14:03 | PC.NURSE ---
Addendum entered by Meghan Jordan RN 11/07/24 15:09: Provider is updated that she is feeling better. She is belching and states I feel much better. Original Note: Provider updated that patient is complaining of chest pain on the [id number] side 04/22. Nursing is doing a EKG right now. Provider ordered a GI cocktail.
[2024-11-07] MEDS: lidocaine 2% viscous 15 ML, aluminum-mag hydrox-simethicon 30 ML, sucralfate oral liq 1 GM PO (14:09)
[2024-11-07] MEDS: acetaminophen 500 mg Tablet PO (16:33)
--- NOTE | 2024-11-07 18:04 | P.PN_ITS ---
Subjective 2 Subjective: This morning, patient reports some chest discomfort. Later in the day she had symptoms that sounded more like GERD. She completed cardiac stress testing today. At this time results are still pending. If negative is hopeful to follow-up possible discharge however it is not late in the day; that looks less likely now. Blood pressure has improved. Medications: Reviewed: Yes Vitals/I&O/Wt Last Vital Signs Temp 97.9 F 11/07/24 15:19 Pulse 82 11/07/24 15:19 Resp 17 11/07/24 15:19 BP 106/64 11/07/24 15:19 Pulse Ox 91 11/07/24 15:19 O2 Del Method Nasal Cannula 11/07/24 09:07 O2 Flow Rate 2 11/07/24 09:07 11/07/24 11/07/24 11/07/24 06:59 14:59 22:59 Intake Total 16 / 76.833 240 / 240 Output Total 675 / 675 Balance -659 / -598.167 240 / 240 Weight last 48 hrs Weight 81.647 kg Weight 82 kg Weight 81.647 kg Physical Exam 2 Narrative: General: Patient is awake. No acute distress. Head: Normocephalic. Atraumatic. EOM intact. Neck: No JVD. Cardiovascular: RRR. No gallops. No murmurs. Lungs: Clear to auscultation, no use of accessory muscles, no crackles or wheezes. Skin: No jaundice. No rashes. Abdomen: Normal bowel sounds, abdomen soft and nontender. Extremities: No cyanosis or clubbing. Lymphedema. Musculoskeletal: No erythematous joints. Neurological: Moves all 4 extremities. No myoclonus. Urinary Catheter Management: Wei: Cath Placed During This Visit: yes Reason for Continuing Indwelling Catheter: Accurate Measurement of Urinary Output in Critically Ill Patients Urinary Catheter Date of Insertion: 11/06/24 Urinary Catheter Time of Insertion: 23:50 Data 11/07/24 05:13 11/07/24 05:13 A&P Assessment and plan (1) Uncontrolled hypertension: (2) Chest pain: (3) Orthostatic hypotension: (4) Atrial fibrillation: Qualifiers: Atrial fibrillation type: longstanding persistent Qualified Code(s): I 48.11 - Longstanding persistent atrial fibrillation (5) DVT (deep venous thrombosis): Qualifiers: DVT location: lower extremity Affected thrombotic vein of extremity: f emoral Chronicity: chronic Laterality: unspecified laterality Qualified Code(s): I82.519 - Chronic embolism and thrombosis of unspecified femoral vein (6) Generalized weakness: Plan Chest pains Follow-up stress test result GERD within differential, responded well to GI cocktail today No history of known heart disease EKG negative for ischemic findings Diastolic dysfunction on echo Hypertensive urgency Now off IV drips Blood pressure meds been titrated Monitor blood pressure on current regiment, adjust as needed Chronic kidney disease: No acute decompensation Patient lives alone: Uses a cane and a walker at home Dysphagia History of DVT/PE Continue Xarelto DNR/DNI Cardiac diet PDMP PDMP Reviewed: Not Reviewed Attestations 2 Medical Necessity Statement*: Patient requires ongoing hospitalization while awaiting cardiac workup, titration of blood pressure meds and supportive care Coding Level of Care Code Acute Code for Chg Fwd Diagnoses Uncontrolled hypertension I10 Chest pain R07.9 Orthostatic hypotension I95.1 Longstanding persistent atrial fibrillation I48.11 Atrial fibrillation type: longstanding persistent 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
--- NOTE | 2024-11-07 21:28 | NMCV_ITS ---
NM alejandro perf SPECT r/s* [id number] Kwasi Aura Age: 88 Gender: F : 1935 Exam Date: 11/07/2024 09:51 Ordering Phys: Speedy Arshad MD Technologist: JUSTYNA Ochoa Exam Location: [facility] Indications: cp STRESS TEST [facility] IMAGE PROTOCOL Rest/Stress 1 Lexiscan Day Radiopharmaceutical Dose (mCi) Administration Site Administered by Rest: Tc-99m 10.5 IV Iva Quiles, [employer] Sestamibi Stress:Tc-99m 32.8 IV Iva Pollackgle, [employer] Sestamibi Rest: 07-Nov-2024 60 Discovery 630 Stress: 07-Nov-2024 30 Discovery 630 0.4mg Lexiscan. Supine position only as patient was unable to lay prone. 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
--- NOTE | 2024-11-07 21:29 | USCV_ITS ---
Aura Villalpando Age: 88 Gender: F : 1935 Exam Date: 11/07/2024 00:19 Ordering Phys: Speedy Arshad MD Technologist: JERRY Exam Location: [facility] Indication: wall motion abnormalitu, EF, history of DVT and pulmonary embolus, HTN , chest pain BP: 159 / 96 HR: 81 Rhythm: Sinus Technical Quality: Adequate MEASUREMENTS (Male / Female) Normal Values 2D ECHO LV Diastolic Diameter PLAX 3.0 cm 4.2 - 5.9 / 3.9 - 5.3 cm IVS Diastolic Thickness 1.9 cm 0.6 - 1.0 / 0.6 - 0.9 cm IVS Systolic Thickness 2.9 cm LVPW Diastolic Thickness 1.8 cm 0.6 - 1.0 / 0.6 - 0.9 cm LVPW Systolic Thickness 1.7 cm LVOT Diameter 1.6 cm LV Ejection Fraction 2D Teich 68.4 % LV Ejection Fraction MOD 4C 51.3 % LV Ejection Fraction MOD 2C 63.4 % LV Ejection Fraction 2C AL 64.8 % LA Diameter 3.1 cm Aorta at Sinotubular Diameter 3.4 cm IVC Diameter 0.6 cm M-MODE LA Ao Ratio MM 1.3 AV Cusp Separation MM 1.7 cm DOPPLER AV Peak Velocity 140.0 cm/s LVOT Peak Velocity 107.0 cm/s AV Area Cont Eq vti 1.7 cm squared AV Area Cont Eq pk 1.6 cm squared MV Peak Velocity 119.0 cm/s MV Area PHT 2.0 cm squared Mitral E to A Ratio 0.8 TR Peak Velocity 178.0 cm/s TR Peak Gradient 12.7 mmHg TV Peak E Velocity 46.0 cm/s PV Peak Velocity 68.0 cm/s FINDINGS Left Ventricle Normal left ventricular size, systolic function and wall thickness, with no regional wall motion abnormalities. Left ventricular ejection fraction is estimated at 60 %. Grade I/IV diastolic dysfunction (abnormal relaxation filling pattern), normal to mildly elevated filling pressures. Right Ventricle The right ventricle is normal in size and function. Right Atrium The right atrium is normal in size. Left Atrium The left atrium is normal in size. Mitral Valve Moderately thickened mitral valve. Moderate mitral annular calcification. No mitral valve stenosis. Trace mitral valve regurgitation. Aortic Valve Mild aortic valve calcification. Mild aortic valve stenosis, mean gradient 3.3 mmHg, COLLETTE 1.7 cm squared. . Mild aortic valve regurgitation. Tricuspid Valve Structurally normal tricuspid valve without significant stenosis or regurgitation. Pulmonary artery systolic pressure is normal. Pulmonic Valve Structurally normal pulmonic valve without significant stenosis. There is no pulmonic regurgitation. Pericardium Normal pericardium without effusion. Aorta Mildly dilated ascending aorta. IVC The inferior vena cava appears normal. CONCLUSIONS Normal left ventricular size, systolic function and wall thickness, with no regional wall motion abnormalities. Left ventricular ejection fraction is estimated at 60 %. Grade I/IV diastolic dysfunction (abnormal relaxation filling pattern), normal to mildly elevated filling pressures. Mild aortic valve calcification. Mild aortic valve stenosis, mean gradient 3.3 mmHg, COLLETTE 1.7 cm squared. . Mild aortic valve regurgitation. Moderately thickened mitral valve. Moderate mitral annular calcification. No mitral valve stenosis. Trace mitral valve regurgitation. There is no pericardial effusion. Right atrial pressure is around 5 mm of mercury. Speedy Rodriguez MD (Electronically Signed) Final Date: 07 November 2024 10:45 S
[2024-11-07] MEDS: TRAMadol 50 mg Tablet PO (21:42)
[2024-11-08] VITALS (8 sets, daily range): BP systolic 84–120; BP diastolic 51–80; PULSE 68–96; RESP 13–20; TEMP 36.3–36.6; O2SAT 90–95
[2024-11-08] MEDS: allopurinol 100 mg Tablet PO (09:57)
[2024-11-08] MEDS: rivaroxaban 10 mg Tablet 15 MG PO (09:57)
--- NOTE | 2024-11-08 10:21 | CT_ITS ---
WS: [id number] CT CHEST TECHNIQUE: Noncontrast CT of the chest with coronal and sagittal reformatted images. CLINICAL INFORMATION: Hypoxia, evaluate etiology COMPARISON: 04/17/2024 DLP: 439.[address] scans at [facility] use at least one of these dose optimization techniques: automated exposure control; mA and/or kV adjustment per patient size (includes targeted exams where dose is matched to clinical indication); or iterative reconstruction. FINDINGS: Cardiomegaly. Dense coronary calcification. No mediastinal or hilar lymphadenopathy. No axillary lymphadenopathy. Moderate chronic emphysematous changes. Subsegmental atelectasis with parenchymal scarring in the lung bases LEFT greater than RIGHT. No focal consolidation or pleural fluid. No other acute findings. Prior cholecystectomy. Pneumobilia. Mild aneurysmal dilatation ascending aorta measuring 4.3 cm unchanged. Small esophageal hiatal hernia. Adrenal glands are normal. Fatty atrophy of the pancreas. Splenic artery calcification. Mild thoracic curve. Mild thoracic kyphosis. CT/CT chest wo con [id number] IMPRESSION: 1. Chronic emphysematous changes. 2. Bibasilar atelectasis with parenchymal scarring. 3. No focal pneumonia. 4. Pneumobilia unchanged compared to previous. 5. Small esophageal hiatal hernia.
--- NOTE | 2024-11-08 10:44 | P.PN_ITS ---
Subjective 2 Subjective: Patient reports she feels terrible today. Her blood pressure soft. Her sons bedside and supportive. He does note that her typical blood pressure is not at 150 at home and it is normal for her to drop upon standing. Her PCP has kept her systolic blood pressure around 150 to help compensate for her orthostatic symptoms. They are okay with continuing the same plan of care. Will hold her antihypertensives and monitor blood pressure today. Her pressure was 84/51 earlier this morning resulting in severe dizziness and lightheadedness. Not safe for discharge to home. Also complains of persistent nausea with intermittent chest discomfort when eating. Suspect this is likely related to her swallow/esophageal pathology rather than cardiac. She was agreeable to speech therapy evaluation today. She is hypoxic which is new for her. She is requiring 2 L and does drop 1 to 2 L are removed. Denies any prior history of home oxygen needs. Her chest x-ray was unremarkable on admission. She agreeable to CAT scan today to further evaluate for possibility allergy that explains her hypoxia. Transthoracic echocardiogram results as well as stress testing results reviewed with patient and son. Son expresses concern of her Wei catheter. We discussed she does not have a clear indication to continue catheter at this time. Will plan for removal today. Medications: Reviewed: Yes Vitals/I&O/Wt Last Vital Signs Temp 97.4 F L 11/08/24 07:37 Pulse 84 11/08/24 07:37 Resp 20 H 11/08/24 07:37 BP 101/56 11/08/24 07:37 Pulse Ox 92 11/08/24 07:37 O2 Del Method Nasal Cannula 11/08/24 07:37 O2 Flow Rate 2 11/08/24 07:37 11/07/24 11/08/24 11/08/24 22:59 06:59 14:59 Intake Total 200 / 440 240 / 240 Output Total 850 / 850 100 / 950 Balance -650 / -410 -100 / -510 240 / 240 Weight last 48 hrs Weight 86.273 kg Weight 81.647 kg Weight 82 kg Weight 81.647 kg Physical Exam 2 Narrative: General: Patient is awake. Ill-appearing. Head: Normocephalic. Atraumatic. EOM intact. Neck: No JVD. Cardiovascular: RRR. No gallops. No murmurs. Lungs: Breath sounds are slightly diminished in the bases, no use of accessory muscles, no crackles or wheezes. On 2 L nasal cannula. Skin: No jaundice. No rashes. Abdomen: Normal bowel sounds, abdomen soft and nontender. Extremities: No cyanosis or clubbing. Lymphedema. Musculoskeletal: No erythematous joints. Neurological: Moves all 4 extremities. No myoclonus. Urinary Catheter Management: Wei: Cath Placed During This Visit: yes Reason for Continuing Indwelling Catheter: Accurate Measurement of Urinary Output in Critically Ill Patients Urinary Catheter Date of Insertion: 11/06/24 Urinary Catheter Time of Insertion: 23:50 Data 11/07/24 05:13 11/07/24 05:13 A&P Assessment and plan (1) Uncontrolled hypertension: Hypertensive urgency has resolved Now hypotensive secondary to medication side effect Hold antihypertensives Monitor blood pressure, reinitiate as clinically indicated (2) Chest pain: Transthoracic echocardiogram with diastolic dysfunction consistent with advanced age with chronic hypertension Stress test has scarring on it with some lissette-infarct ischemia Will discuss with cardiology whether further workup is warranted (3) Orthostatic hypotension: We will follow PCPs plan and keep systolic blood pressure around 150 to guard against orthostasis, family and patient are okay with this plan as well Further blood pressure management as noted above (4) Hypoxia: She continues to require 2 L nasal cannula consistently which is new Chest x-ray reviewed no acute pathology on admission Proceed with CT chest, will hold off on contrast given underlying CKD (5) Atrial fibrillation: In sinus rhythm On DOAC for stroke prophylaxis Qualifiers: Atrial fibrillation type: longstanding persistent Qualified Code(s): I 48.11 - Longstanding persistent atrial fibrillation (6) DVT (deep venous thrombosis): Continue home Xarelto Qualifiers: DVT location: lower extremity Affected thrombotic vein of extremity: f emoral Chronicity: chronic Laterality: unspecified laterality Qualified Code(s): I82.519 - Chronic embolism and thrombosis of unspecified femoral vein (7) Generalized weakness: Likely multifactorial, may be largely associated with her blood pressures at this point Blood pressure management as above Plan DVT prophylaxis: Xarelto PDMP PDMP Reviewed: Not Reviewed Attestations 2 Medical Necessity Statement*: Patient requires ongoing hospitalization for further workup of hypoxia with a CAT scan, speech therapy evaluation, blood pressure medication titration and close monitoring, telemetry, and supportive care. 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
[2024-11-08] MEDS: predniSONE 20 mg Tablet 40 MG PO (12:36)
[2024-11-08] MEDS: acetaminophen 500 mg Tablet PO (12:37)
[2024-11-08] MEDS: sennosides-docusate Tablet 2 TAB PO (15:51)
[2024-11-08] MEDS: pantoprazole DR 40 mg Tablet PO (18:45)
[2024-11-08] MEDS: TRAMadol 50 mg Tablet PO (20:56)
[2024-11-09] VITALS (7 sets, daily range): BP systolic 134–147; BP diastolic 88–96; PULSE 12–96; RESP 15–83; TEMP 36.6–36.7; O2SAT 90–95
--- NOTE | 2024-11-09 08:06 | PM.DCS ---
Discharge Providers Date of Admission: 11/06/24 21:28 Date of Discharge: November 09, 2024 Attending Provider at Admission: Speedy Arshad MD Attending Provider at Discharge: Saravanan Antoine MD Primary Care Provider: Bhaskar Alejandra MD Diagnoses at Discharge Discharge Diagnosis (1) Uncontrolled hypertension: Status: Acute (2) Chest pain: Status: Acute (3) Orthostatic hypotension: Status: Acute (4) Hypoxia: Status: Acute (5) Atrial fibrillation: Status: Acute Qualifiers: Atrial fibrillation type: longstanding persistent Qualified Code(s): I48.11 - Longstanding persistent atrial fibrillation Permanent problem details: Pt is on oral anti-coagulation for afib and PE (6) DVT (deep venous thrombosis): Status: Acute Qualifiers: Affected thrombotic vein of extremity: femoral Chronicity: chronic DVT location: lower extremity Laterality: unspecified laterality Qualified Code(s): I82.519 - Chronic embolism and thrombosis of unspecified femoral vein (7) Generalized weakness: Status: Acute Reason for Visit Reason for Visit: chest pain Hospital Course Hospital Course Aura Villalpando is an 88-year-old female with a past medical history significant for DVT/PE on Xarelto, hypertension, dyslipidemia, atrial fibrillation, coronary disease, and multiple other comorbidities who presented emergency department with chest pain, found initially to have severely elevated blood pressures. She was treated with antihypertensive resulting in symptomatic hypotension. Medications were adjusted resulting in improved blood pressure control. She underwent cardiac stress testing which showed medium fixed area of perfusion deficit in the basal to distal inferior wall suggestive of old NM lissette-infarct ischemia. Her symptomatology resolved. At the time of discharge, no further medication changes to home blood pressure meds were made. She will continue her home log and follow-up with her PCP for ongoing blood pressure control. She was found to transiently need oxygen for which CT scan showed advanced emphysema consistent with acute COPD exacerbation treated with steroids. Hypoxia resolved. She completed home walk test which revealed no need for home oxygen. Patient discharged home on low-dose prednisone burst. There is underlying concern for dysphagia which patient has history of. Therapy evaluated the patient recommend possible esophagram for which patient declined. Her symptomatology resolved. She is being discharged home in stable condition. Physical Exam Narrative: General: Patient is awake. Alert. No acute distress. Pleasant. Head: Normocephalic. Atraumatic. EOM intact. Neck: No JVD. Cardiovascular: RRR. No gallops. No murmurs. Lungs: Adequate air movement, no use of accessory muscles, no crackles or wheezes. On room air. Skin: No jaundice. No rashes. Abdomen: Normal bowel sounds, abdomen soft and nontender. Extremities: No cyanosis or clubbing. Lymphedema. Musculoskeletal: No erythematous joints. Neurological: Moves all 4 extremities. No myoclonus. Urinary Catheter Management: Wei: Cath Placed During This Visit: yes, but has since been removed by the nurse Reason for Continuing Indwelling Catheter: Acute Urinary Retention or Obstruction Urinary Catheter Date of Insertion: 11/06/24 Urinary Catheter Time of Insertion: 23:50 Date Urinary Catheter Removed: 11/09/24 Time Urinary Catheter Discontinued: 07:50 Discharge Data Studies Completed and Pending Completed Studies During Hospitalization Category Date Time Status CT chest wo con [id number] Routine Cat Scan 11/08/24 10:21 Completed Sestamibi Stress Test Request Routine Exams 11/06/24 21:28 Draft XR chest 1V portable [id number] Stat Exams 11/06/24 14:43 Completed NM alejandro perf SPECT r/s* [id number] Routine Nuc Med 11/07/24 21:28 Completed CV. echo limited [id number] Routine Ultrasound 11/07/24 21:29 Completed Radiology Impressions Chest X-Ray 11/06/24 14:43 IMPRESSION: No acute findings. Chest CT 11/08/24 10:21 IMPRESSION: 1. Chronic emphysematous changes. 2. Bibasilar atelectasis with parenchymal scarring. 3. No focal pneumonia. 4. Pneumobilia unchanged compared to previous. 5. Small esophageal hiatal hernia. Laboratory Results WBC 8.67 10^3/uL (3.29-11.43) 11/07/24 05:13 RBC 4.98 10^6/uL (3.85-5.65) 11/07/24 05:13 Hgb 15.10 g/dL (11.27-16.99) 11/07/24 05:13 Hct 46.6 % (36-47) 11/07/24 05:13 MCV 93.6 fl (85-98) 11/07/24 05:13 MCH 30.3 pg (27-33) 11/07/24 05:13 MCHC 32.4 g/dL (30-55) 11/07/24 05:13 RDW 13.5 % (12.1-15.1) 11/07/24 05:13 Plt Count 230 10^3/cmm (157-399) 11/07/24 05:13 MPV 10.6 fL (7.4-10.4) H 11/07/24 05:13 Neut % (Auto) 51.5 % 11/07/24 05:13 Lymph % (Auto) 37.5 % 11/07/24 05:13 Dickenson % (Auto) 8.8 % 11/07/24 05:13 Eos % (Auto) 1.4 % 11/07/24 05:13 Baso % (Auto) 0.6 % 11/07/24 05:13 Neut # (Auto) 4.47 10^3/uL (1.8-7.7) 11/07/24 05:13 Lymph # (Auto) 3.3 10^3/uL (0.8-4.8) 11/07/24 05:13 Dickenson # (Auto) 0.8 10^3/uL (0.2-0.9) 11/07/24 05:13 Eos # (Auto) 0.1 10^3/uL (0.0-0.8) 11/07/24 05:13 Baso # (Auto) 0.1 10^3/uL (0.0-0.1) 11/07/24 05:13 Nucleated RBC % (auto) 0 % 11/07/24 05:13 Nucleated RBCs # 0.0 /100WBC 11/07/24 05:13 PT 21.40 SECONDS (12.1-14.9) H 11/06/24 14:42 INR 1.73 (0.8-1.2) H 11/06/24 14:42 D-Dimer 0.92 ug/mLFEU (0-0.59) H 11/06/24 14:47 Sodium 138 mmol/L (136-145) 11/07/24 05:13 Potassium 4.0 mmol/L (3.5-5.1) 11/07/24 05:13 Chloride 103 mmol/L (98-107) 11/07/24 05:13 Carbon Dioxide 24 mmol/L (22-29) 11/07/24 05:13 Anion Gap 15.0 (5-19) 11/07/24 05:13 BUN 21 mg/dL (8-23) 11/07/24 05:13 Creatinine 1.0 mg/dL (0.5-0.9) H 11/07/24 05:13 GFR Calculation Not Reportable 11/07/24 05:13 Glucose 107 mg/dL (65-115) 11/07/24 05:13 Calculated Osmolality 289 mOsm/kg (285-295) 11/07/24 05:13 Calcium 8.7 mg/dL (8.5-10.5) 11/07/24 05:13 Magnesium 1.9 mg/dL (1.7-2.3) 11/07/24 05:13 Total Bilirubin 1.4 mg/dL (0.15-1.2) H 11/06/24 14:42 AST 21 U/L (0-32) 11/06/24 14:42 ALT 19 U/L (0-33) 11/06/24 14:42 Alkaline Phosphatase 140 U/L (35-105) H 11/06/24 14:42 Troponin T Baseline 20 ng/L (0-10) H 11/06/24 14:42 Troponin T 120 Minute 18.94 ng/L (0-10) H 11/06/24 18:05 Delta Troponin T -1.06 ABS# (0-10) L 11/06/24 18:05 Troponin T Hi Sens 6Hr 19.24 ng/L (0-10) H 11/06/24 21:34 Troponin T Hi Sens 6Hr Delta -0.76 ng/L (0-12) L 11/06/24 21:34 NT-Pro-B Natriuret Pep 468 pg/mL (0-450) H 11/06/24 18:05 Total Protein 6.9 g/dL (6.6-8.7) 11/06/24 14:42 Albumin 3.8 g/dL (3.5-5.2) 11/06/24 14:42 Globulin 3.1 g/dL (1.3-4.6) 11/06/24 14:42 Lipase 61 U/L (13-60) H 11/06/24 14:42 Vitals Last Vital Signs Temp 97.9 F 11/09/24 07:18 Pulse 83 11/09/24 07:18 Resp 18 11/09/24 07:18 BP 134/96 11/09/24 07:18 Pulse Ox 93 11/09/24 07:18 O2 Del Method Nasal Cannula 11/09/24 07:18 O2 Flow Rate 2 11/08/24 16:00 Discharge Plan Discharge Patient Disposition: Home Health Service Condition: Stable Prescriptions: New prednisone 20 mg tablet 20 mg PO DAILY 5 Days Qty: 5 0RF Continued cholecalciferol (vitamin D3) 1,000 unit capsule 1,000 unit PO QAM ferrous sulfate 325 mg (65 mg iron) tablet,delayed release (DR/EC) 325 mg PO QAM ascorbic acid (vitamin C) 500 mg tablet 500 mg PO QAM vitamin B complex Tablet 1 tab PO QAM losartan 25 mg tablet 25 mg PO DAILY Qty: 90 3RF tramadol 50 mg tablet 50 mg PO BID PRN (Reason: Pain) Qty: 60 5RF allopurinol 100 mg tablet See Rx Instructions .ROUTE .COMPLEX Qty: 90 3RF Dose Instruction: TAKE 1 TABLET ONE TIME DAILY FOR GOUT Rx Instructions: TAKE 1 TABLET ONE TIME DAILY FOR GOUT multivitamin Tablet 1 tab PO QAM omega-3 fatty acids 1,000 mg Capsule 1,000 mg PO QAM acetaminophen 500 mg Tablet 500 mg PO Q6H PRN (Reason: Pain) cranberry 500 mg Capsule 500 - 1,000 mg PO QAM nitroglycerin 0.4 mg tablet, sublingual 0.4 mg sublingual Q5M PRN (Reason: chest pain) Qty: 25 0RF Rx Instructions: do not exceed 3 doses per episode calcium carbonate-vitamin D3 600 mg-5 mcg (200 unit) Tablet 1 tab PO QAM zinc gluconate 50 mg Tablet 50 mg PO QAM vitamin E 268 mg (400 unit) Capsule 268 mg PO QPM atorvastatin 10 mg tablet 10 mg PO QAM omeprazole 40 mg capsule,delayed release(DR/EC) 40 mg PO QAM PRN (Reason: Acid Reflux) spironolactone 25 mg tablet 12.5 mg PO QAM Xarelto 15 mg tablet 15 mg PO QAM Discharge Orders: Discharge Order (Routine); Ordered 11/09/24 Ordered By: Saravanan Antoine Referrals: [facility] [Outside] Bhaskar Alejandra MD [Primary Care Provider] - 11/14/24 12:20 pm Discharge Diet: Advance as tolerated and Usual diet Discharge Activity: Resume usual activity and Increase activity as tolerated Patient Instructions: Prednisone (By mouth), Chest Pain (DC), Deep Vein Thrombosis (DC), Chronic Hypertension (DC), Hypotension (DC), Hypoxia (GEN), Opioid Safety, Weakness (Generalized) Discharge Attestations Time Spent in Discharge Care*: greater than 30 min Quality Metrics Clinical Quality Measures [ No reported AMI, CVA or VTE this stay] Coding Level of Care Code Acute Code for Chg Fwd Diagnoses Uncontrolled hypertension I10 Chest pain R07.9 Orthostatic hypotension I95.1 Hypoxia R09.02 Longstanding persistent atrial fibrillation I48.11 Atrial fibrillation type: longstanding persistent 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
[2024-11-09] MEDS: sennosides-docusate Tablet 2 TAB PO (08:58)
[2024-11-09] MEDS: pantoprazole DR 40 mg Tablet PO (08:59)
[2024-11-09] MEDS: allopurinol 100 mg Tablet PO (08:59)
[2024-11-09] MEDS: predniSONE 20 mg Tablet 40 MG PO (08:59)
[2024-11-09] MEDS: rivaroxaban 10 mg Tablet 15 MG PO (08:59)
[2024-11-09] MEDS: losartan 50 mg Tablet 25 MG PO (08:59)
--- NOTE | 2024-11-09 11:13 | PC.NURSE ---
patient discharged to home. Instruction provided regarding medications and follow up needs. Patient verbalized complete understanding. Patient taken by wheelchair to private vehicle. Son and friend to provided transportation.
== END 2024-11-09 11:11 | disposition home health service (06) ==
LOC: ER 20:35 → ER IP 22:11 → ICU 11-07 01:19 → CSU 11-07 11:05
PROVIDERS: Emergency Medicine; Admitting Provider Internal Medicine; Emergency Provider Emergency Medicine; PCP Family Medicine; Visit Provider Internal Medicine
DX: I16.0 Hypertensive urgency (principal); E78.2 Mixed hyperlipidemia; I48.11 Longstanding persistent atrial fibrillation; I12.9 Hypertensive chronic kidney disease with stage 1 through stage 4 chronic kidney disease, or unspecified chronic kidney disease; I82.519 Chronic embolism and thrombosis of unspecified femoral vein; N18.9 Chronic kidney disease, unspecified; I25.110 Atherosclerotic heart disease of native coronary artery with unstable angina pectoris; I95.1 Orthostatic hypotension; R09.02 Hypoxemia; T46.5X5A Adverse effect of other antihypertensive drugs, initial encounter; J43.9 Emphysema, unspecified; Z86.711 Personal history of pulmonary embolism; Z79.01 Long term (current) use of anticoagulants; Z86.73 Personal history of transient ischemic attack (TIA), and cerebral infarction without residual deficits; Z79.899 Other long term (current) drug therapy; Z88.5 Allergy status to narcotic agent; Z90.49 Acquired absence of other specified parts of digestive tract; Z66 Do not resuscitate
CPT/HCPCS: 36415; 51702; 71045; 71250; 78452; 80048; 80053; 83690; 83735; 83880; 84484; 85025; 85378; 85610; 92610; 93005; 93017; 93308; 94760; 96365; 96366; 96374; 96375; 96376; 99291; A9500; G0378; J2270; J2405; J2470; J2785; J7512

== ENCOUNTER → 2024-11-24 11:13 | Outpatient (BNVA) | payer MEDICARE, MEDICAID, SELFPAY | PROVIDERS: PCP Family Medicine; Visit Provider Internal Medicine | DX: I48.11 Longstanding persistent atrial fibrillation (principal); E78.5 Hyperlipidemia, unspecified; Z86.711 Personal history of pulmonary embolism; Z86.718 Personal history of other venous thrombosis and embolism | CPT/HCPCS: 99214 ==

== ENCOUNTER → 2025-04-18 11:31 | Outpatient (BNVA) | payer MEDICARE, MEDICAID, SELFPAY | PROVIDERS: PCP Family Medicine; Visit Provider Family Medicine | DX: I10 Essential (primary) hypertension (principal); E78.5 Hyperlipidemia, unspecified; M17.11 Unilateral primary osteoarthritis, right knee | CPT/HCPCS: 80053; 85025 ==

== ENCOUNTER → 2025-05-08 15:53 | Outpatient (BNVA) | payer MEDICARE, MEDICAID, SELFPAY | PROVIDERS: PCP Family Medicine; Visit Provider Family Medicine | DX: L98.9 Disorder of the skin and subcutaneous tissue, unspecified (principal) | CPT/HCPCS: 88304 ==

== ENCOUNTER → 2025-06-13 07:11 | Outpatient (BNVA) | payer MEDICARE, MEDICAID, SELFPAY | PROVIDERS: PCP Family Medicine; Visit Provider Family Medicine | DX: L98.9 Disorder of the skin and subcutaneous tissue, unspecified (principal) | CPT/HCPCS: 88304 ==

== ENCOUNTER 2025-06-27 18:50 | Emergency (ER) | payer MEDICARE, MEDICAID, SELFPAY ==
[2025-06-27 18:51] VITALS: BP 193/126; PULSE 74; RESP 17; TEMP 36.4; O2SAT 94; BMI 32.9
--- OUTSIDE RECORDS SUMMARY | 2025-06-27 18:55 | XMS_ITS | Encounter Summary ---
Author Organization [facility] Address [address] [place] [address] Care Team Providers Care Medical Stenographer Name Role Phone Marquis Bills MD, Ahsan Barrios Primary Care Provider Encounter Details Date Type Department Care Team (Latest Contact Info) Description 08/01/2002 Outpatient Historical HIS [facility] Delfin Rodriguez MD [address] [address], [place] [id number] BUNION (Primary Dx); HYPERTENSION NOS Social History Tobacco Use Types Packs/Day Years Used Date Smoking Tobacco: Never Assessed Comments Unknown Sex and Gender Information Value Date Recorded Sex Assigned at Not on file Legal Sex Female 4:20 AM HAND CULTIVATOR Gender Identity Not on file Sexual Orientation Not on file documented as of this encounter Plan of Treatment Not on file documented as of this encounter Visit Diagnoses Diagnosis Bunion- Primary Unspecified essential hypertension documented in this encounter Care Teams Medical Stenographer Relationship Specialty Start Date End Date Ahsan Cho Jr., MD [address] [place] [address] PCP - General Family Practice 05/03/14 documented as of this encounter
--- OUTSIDE RECORDS SUMMARY | 2025-06-27 18:55 | XMS_ITS | Encounter Summary ---
Author Organization [facility] Address [address] [place] [address] Care Team Providers Care Commissioned Sales Associate Name Role Phone Marquis Bills MD, Ahsan Barrios Primary Care Provider Encounter Details Date Type Department Care Team (Latest Contact Info) Description 12/14/2001 Outpatient Historical HIS [facility] Delfin Rodriguez MD [address], [place] [phone] HYPERTENSION NOS (Primary Dx); OTHER MALAISE AND FATIGUE Social History Tobacco Use Types Packs/Day Years Used Date Smoking Tobacco: Never Assessed Comments Unknown Sex and Gender Information Value Date Recorded Sex Assigned at Not on file 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
--- OUTSIDE RECORDS SUMMARY | 2025-06-27 18:55 | XMS_ITS | Encounter Summary ---
Author Organization [facility] Address [address] [place] [address] Care Team Providers Care Rope Coiling Machine Operator Name Role Phone Marquis Bills MD, Ahsan Barrios Primary Care Provider Encounter Details Date Type Department Care Team (Late st Contact Info) Description 08/02/2003 Outpatient Historical HIS [facility] Social History Tobacco Use Types Packs/Day Years Used Date Smoking Tobacco: Never Assessed Comments Unknown Sex and Gender Information Value Date Recorded Sex Assigned at Not on file Legal Sex Female 4:20 AM BUILDING EQUIPMENT OPERATOR Gender Identity Not on file Sexual Orientation Not on file documented as of this encounter Plan of Treatment Not on file documented as of this encounter Visit Diagnoses Not on filedocumented in this encounter Care Teams Rope Coiling Machine Operator Relationship Specialty Start Date End Date Ahsan Cho Jr., MD [address] [place] [address] PCP - General Family Practice 05/03/14 documented as of this encounter
--- OUTSIDE RECORDS SUMMARY | 2025-06-27 18:55 | XMS_ITS | Encounter Summary ---
Author Organization [facility] Address [address] [place] [address] Care Team Providers Care Police Booking Officer Name Role Phone Marquis Bills MD, Ahsan Barrios Primary Care Provider Encounter Details Date Type Department Care Team (Latest Contact Info) Description 07/04/2002 Outpatient Historical HIS [facility] Delfin Rodriguez MD [address] [place] [address], [place] [id number] HYPERTENSION NOS (Primary Dx) Social History Tobacco Use Types Packs/Day Years Used Date Smoking Tobacco: Never Assessed Comments Unknown Sex and Gender Information Value Date Recorded Sex Assigned at Not on file 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
--- OUTSIDE RECORDS SUMMARY | 2025-06-27 18:55 | XMS_ITS | Encounter Summary ---
Author Organization [facility] Address [address] [place] [address] Care Team Providers Care Seasonal Sales Associate Name Role Phone Marquis Bills MD, Ahsan Barrios Primary Care Provider Encounter Details Date Type Department Care Team (Latest Contact Info) Description 12/21/2001 Outpatient Historical HIS [facility] Delfin Rodriguez MD [address], [place] [phone] OTHER MALAISE AND FATIGUE (Primary Dx); HYPERTENSION NOS Social History Tobacco Use Types Packs/Day Years Used Date Smoking Tobacco: Never Assessed Comments Unknown Sex and Gender Information Value Date Recorded Sex Assigned at Not on file Legal Sex Female 4:20 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
--- OUTSIDE RECORDS SUMMARY | 2025-06-27 18:55 | XMS_ITS | Encounter Summary ---
Author Organization [facility] Address [address] Attn: [place] [address] Care Team Providers Care Non Linear Editor Name Role Phone Marquis Bills MD, Ahsan Barrios Primary Care Provider Encounter Details Date Type Department Care Team (Late st Contact Info) Description 12/21/2001 Outpatient Historical Delfin Rodriguez MD [address], [place] [address] Social History Tobacco Use Types Packs/Day Years Used Date Smoking Tobacco: Never Assessed Comments Unknown Sex and Gender Information Value Date Recorded Sex Assigned at Not on file Legal Sex Female 4:20 AM PLASTIC BOAT PATCHER Gender Identity Not on file Sexual Orientation Not on file documented as of this encounter Plan of Treatment Not on file documented as of this encounter Visit Diagnoses Not on filedocumented in this encounter Care Teams Non Linear Editor Relationship Specialty Start Date End Date Ahsan Cho Jr., MD [address] [place] [address] PCP - General Family Practice 05/03/14 documented as of this encounter
--- OUTSIDE RECORDS SUMMARY | 2025-06-27 18:55 | XMS_ITS | Encounter Summary ---
Author Organization [facility] Address [address] [place] [address] Care Team Providers Care Legal Summer Intern Name Role Phone Marquis Bills MD, Ahsan Barrios Primary Care Provider Encounter Details Date Type Department Care Team (Latest Contact Info) Description 07/17/2003 Outpatient Historical HIS [facility] Delfin Rodriguez MD [address], [place] [phone] SCREENING MAL NEOP-CERVIX (Primary Dx) Social History Tobacco Use Types Packs/Day Years Used Date Smoking Tobacco: Never Assessed Comments Unknown Sex and Gender Information Value Date Recorded Sex Assigned at Not on file Legal Sex Female 4:20 AM RN FIRST ASSIST Gender Identity Not on file Sexual Orientation Not on file documented as of this encounter Plan of Treatment Not on file documented as of this encounter Visit Diagnoses Diagnosis Screening for malignant neoplasm of the cervix- Primary documented in this encounter Care Teams Legal Summer Intern Relationship Specialty Start Date End Date Ahsan Cho Jr., MD [address] [place] [address] PCP - General Family Practice 05/03/14 documented as of this encounter
--- OUTSIDE RECORDS SUMMARY | 2025-06-27 18:55 | XMS_ITS | Encounter Summary ---
Author Organization [facility] Address [address] [place] [address] Care Team Providers Care Baker Name Role Phone Marquis Bills MD, Ahsan Barrios Primary Care Provider Encounter Details Date Type Department Care Team (Latest Contact Info) Description 07/17/2003 Outpatient Historical HIS [facility] Delfin Rodriguez MD [address], [place] [phone] Routine medical exam (Primary Dx); SCREENING MAL NEOP-CERVIX; SCREENING MAL NEOP-BREAST,UNSPEC; ENURESIS NOS Social History Tobacco Use Types Packs/Day Years Used Date Smoking Tobacco: Never Assessed Comments Unknown Sex and Gender Information Value Date Recorded Sex Assigned at Not on file Legal Sex Female 4:20 AM AMMUNITION OFFICER Gender Identity Not on file Sexual Orientation Not on file documented as of this encounter Plan of Treatment Not on file documented as of this encounter Visit Diagnoses Diagnosis Routine medical exam- Primary Routine general medical examination at a health care facility Screening for malignant neoplasm of the cervix Breast screening, unspecified Unspecified urinary incontinence documented in this encounter Care Teams Baker Relationship Specialty Start Date End Date Ahsan Cho Jr., MD [address] [place] [address] PCP - General Family Practice 05/03/14 documented as of this encounter
--- OUTSIDE RECORDS SUMMARY | 2025-06-27 18:56 | XMS_ITS | Encounter Summary ---
Author Organization [facility] Address [address] [place] [address] Care Team Providers Care Turnstile Attendant Name Role Phone Marquis Bills MD, Ahsan Barrios Primary Care Provider Encounter Details Date Type Department Care Team (Latest Contact Info) Description 01/31/1999 Outpatient Historical HIS [facility] Param Ferrer NO ADDRESS ON FILE Other malaise and fatigue (Primary Dx) Social History Tobacco Use Types Packs/Day Years Used Date Smoking Tobacco: Never Assessed Comments Unknown Sex and Gender Information Value Date Recorded Sex Assigned at Not on file Legal Sex Female 4:20 AM CITY SUPERINTENDENT Gender Identity Not on file Sexual Orientation Not on file documented as of this encounter Plan of Treatment Not on file documented as of this encounter Visit Diagnoses Diagnosis Other malaise and fatigue- Primary documented in this encounter Care Teams Turnstile Attendant Relationship Specialty Start Date End Date Ahsan Cho Jr., MD [address] [place] [address] PCP - General Family Practice 05/03/14 documented as of this encounter
--- OUTSIDE RECORDS SUMMARY | 2025-06-27 18:56 | XMS_ITS | Encounter Summary ---
Author Organization [facility] Address [address] [place] [address] Care Team Providers Care Electric Meter Tester Helper Name Role Phone Marquis Bills MD, Ahsan Barrios Primary Care Provider Encounter Details Date Type Department Care Team (Latest Contact Info) Description 01/24/2001 Outpatient Historical HIS [facility] Param Ferrer NO ADDRESS ON FILE Unspecified essential hypertension (Primary Dx) Social History Tobacco Use Types Packs/Day Years Used Date Smoking Tobacco: Never Assessed Comments Unknown Sex and Gender Information Value Date Recorded Sex Assigned at Not on file Legal Sex Female 4:20 AM HRIS ANALYST Gender Identity Not on file Sexual Orientation Not on file documented as of this encounter Plan of Treatment Not on file documented as of this encounter Visit Diagnoses Diagnosis Unspecified essential hypertension- Primary documented in this encounter Care Teams Electric Meter Tester Helper Relationship Specialty Start Date End Date Ahsan Cho Jr., MD [address] [place] [address] PCP - General Family Practice 05/03/14 documented as of this encounter
--- OUTSIDE RECORDS SUMMARY | 2025-06-27 18:56 | XMS_ITS | Encounter Summary ---
Author Organization [facility] Address [address] [place] [address] Care Team Providers Care Financial Planner Name Role Phone Marquis Bills MD, Ahsan Barrios Primary Care Provider Encounter Details Date Type Department Care Team (Latest Contact Info) Description 12/02/2001 Outpatient Historical HIS [facility] Delfin Rodriguez MD [address] [place] [address] ACUTE URI NOS (Primary Dx); OTHER MALAISE AND FATIGUE; FEMALE CLIMACTERIC STATE Social History Tobacco Use Types Packs/Day Years Used Date Smoking Tobacco: Never Assessed Comments Unknown Sex and Gender Information Value Date Recorded Sex Assigned at Not on file Legal Sex Female 4:20 AM HARNESS MAKER Gender Identity Not on file Sexual Orientation Not on file documented as of this encounter Plan of Treatment Not on file documented as of this encounter Visit Diagnoses Diagnosis Acute upper respiratory infections of unspecified site- Primary Other malaise and fatigue Symptomatic menopausal or female climacteric states documented in this encounter Care Teams Financial Planner Relationship Specialty Start Date End Date Ahsan Cho Jr., MD [address] [place] [phone] PCP - General Family Practice 05/03/14 documented as of this encounter
--- OUTSIDE RECORDS SUMMARY | 2025-06-27 18:56 | XMS_ITS | Encounter Summary ---
Author Organization [facility] Address [address] [place] [address] Care Team Providers Care Environmental Field Team Member Name Role Phone Marquis Bills MD, Ahsan Barrios Primary Care Provider Encounter Details Date Type Department Care Team (Latest Contact Info) Description 01/26/2001 Outpatient Historical HIS [facility] Param Ferrer NO ADDRESS ON FILE Unspecified essential hypertension (Primary Dx) Social History Tobacco Use Types Packs/Day Years Used Date Smoking Tobacco: Never Assessed Comments Unknown Sex and Gender Information Value Date Recorded Sex Assigned at Not on file Legal Sex Female 4:20 AM PROCESS DEVELOPER Gender Identity Not on file Sexual Orientation Not on file documented as of this encounter Plan of Treatment Not on file documented as of this encounter Visit Diagnoses Diagnosis Unspecified essential hypertension- Primary documented in this encounter Care Teams Environmental Field Team Member Relationship Specialty Start Date End Date Ahsan Cho Jr., MD [address] [place] [address] PCP - General Family Practice 05/03/14 documented as of this encounter
--- OUTSIDE RECORDS SUMMARY | 2025-06-27 18:56 | XMS_ITS | Encounter Summary ---
Author Organization [facility] Address [address] [place] [address] Care Team Providers Care Support Services Coordinator Name Role Phone Marquis Bills MD, Ahsan Barrios Primary Care Provider Encounter Details Date Type Department Care Team (Latest Contact Info) Description 02/25/1999 Outpatient Historical HIS [facility] Param Ferrer NO ADDRESS ON FILE Other abnormal clinical finding (Primary Dx) Social History Tobacco Use Types Packs/Day Years Used Date Smoking Tobacco: Never Assessed Comments Unknown Sex and Gender Information Value Date Recorded Sex Assigned at Not on file Legal Sex Female 4:20 AM PIECE MAKER Gender Identity Not on file Sexual Orientation Not on file documented as of this encounter Plan of Treatment Not on file documented as of this encounter Visit Diagnoses Diagnosis Other abnormal clinical finding- Primary documented in this encounter Care Teams Support Services Coordinator Relationship Specialty Start Date End Date Ahsan Cho Jr., MD [address] [place] [address] PCP - General Family Practice 05/03/14 documented as of this encounter
--- OUTSIDE RECORDS SUMMARY | 2025-06-27 18:56 | XMS_ITS | Encounter Summary ---
Author Organization [facility] Address [address] [place] [address] Care Team Providers Care Foam Rubber Mixer Name Role Phone Marquis Bills MD, Ahsan Barrios Primary Care Provider Encounter Details Date Type Department Care Team (Latest Contact Info) Description 09/20/2002 Outpatient Historical HIS [facility] Delfin Rodriguez MD [address] [place] [address] BUNION (Primary Dx); PREOP EXAM OTHER UNSPECIFIED Social History Tobacco Use Types Packs/Day Years Used Date Smoking Tobacco: Never Assessed Comments Unknown Sex and Gender Information Value Date Recorded Sex Assigned at Not on file Legal Sex Female 4:20 AM ORACLE FUSION DEVELOPER Gender Identity Not on file Sexual Orientation Not on file documented as of this encounter Plan of Treatment Not on file documented as of this encounter Visit Diagnoses Diagnosis Bunion- Primary Preoperative examination, unspecified documented in this encounter Care Teams Foam Rubber Mixer Relationship Specialty Start Date End Date Ahsan Cho Jr., MD [address] [place] [address] PCP - General Family Practice 05/03/14 documented as of this encounter
--- OUTSIDE RECORDS SUMMARY | 2025-06-27 18:56 | XMS_ITS | Encounter Summary ---
Author Organization [facility] Address [address] Attn: [place] [address] Care Team Providers Care Electrical And Radio Mock Up Mechanic Name Role Phone Marquis Bills MD, Ahsan Barrios Primary Care Provider Encounter Details Date Type Department Care Team (Late st Contact Info) Description 12/14/2001 Outpatient Historical Delfin Rodriguez MD [address] [place], [place] [id number] Social History Tobacco Use Types Packs/Day Years Used Date Smoking Tobacco: Never Assessed Comments Unknown Sex and Gender Information Value Date Recorded Sex Assigned at Not on file Legal Sex Female 4:20 AM SLASHER HAND Gender Identity Not on file Sexual Orientation Not on file documented as of this encounter Plan of Treatment Not on file documented as of this encounter Visit Diagnoses Not on filedocumented in this encounter Care Teams Electrical And Radio Mock Up Mechanic Relationship Specialty Start Date End Date Ahsan Cho Jr., MD [address] [place] [address] PCP - General Family Practice 05/03/14 documented as of this encounter
--- OUTSIDE RECORDS SUMMARY | 2025-06-27 18:56 | XMS_ITS | Encounter Summary ---
Author Organization [facility] Address [address] [place] [address] Care Team Providers Care Plate Driller Name Role Phone Marquis Bills MD, Ahsan Barrios Primary Care Provider Encounter Details Date Type Department Care Team (Latest Contact Info) Description 01/21/1999 Outpatient Historical HIS [facility] Param Ferrer NO ADDRESS ON FILE Chronic airway obstruction, not elsewhere classified (CMS/HCC) (Primary Dx); Unspecified essential hypertension Social History Tobacco Use Types Packs/Day Years Used Date Smoking Tobacco: Never Assessed Comments Unknown Sex and Gender Information Value Date Recorded Sex Assigned at Not on file Legal Sex Female 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
--- OUTSIDE RECORDS SUMMARY | 2025-06-27 18:56 | XMS_ITS | Encounter Summary ---
Author Organization [facility] Address [address] [place] [address] Care Team Providers Care Liability Claims Representative Name Role Phone Marquis Bills MD, Ahsan Barrios Primary Care Provider Encounter Details Date Type Department Care Team (Latest Contact Info) Description 12/22/2000 Outpatient Historical HIS [facility] Param Ferrer NO ADDRESS ON FILE Benign hypertension (Primary Dx); Abdominal pain, unspecified site; Diverticulosis of colon Social History Tobacco Use Types Packs/Day Years Used Date Smoking Tobacco: Never Assessed Comments Unknown Sex and Gender Information Value Date Recorded Sex Assigned at Not on file Legal Sex Female 4:20 AM CONTROLLER COAL OR ORE Gender Identity Not on file Sexual Orientation Not on file documented as of this encounter Plan of Treatment Not on file documented as of this encounter Visit Diagnoses Diagnosis Benign hypertension- Primary Essential hypertension, benign Abdominal pain, unspecified site Diverticulosis of colon Diverticulosis of colon (without mention of hemorrhage) documented in this encounter Care Teams Liability Claims Representative Relationship Specialty Start Date End Date Ahsan Cho Jr., MD [address] [place] [address] PCP - General Family Practice 05/03/14 documented as of this encounter
--- OUTSIDE RECORDS SUMMARY | 2025-06-27 18:56 | XMS_ITS | Encounter Summary ---
Author Organization [facility] Address [address] [place] [address] Care Team Providers Care Editorial Cartoonist Name Role Phone Marquis Bills MD, Ahsan Barrios Primary Care Provider Encounter Details Date Type Department Care Team (Latest Contact Info) Description 09/17/1999 Outpatient Historical HIS [facility] Param Ferrer NO ADDRESS ON FILE Pain in limb (Primary Dx) Social History Tobacco Use Types Packs/Day Years Used Date Smoking Tobacco: Never Assessed Comments Unknown Sex and Gender Information Value Date Recorded Sex Assigned at Not on file Legal Sex Female 4:20 AM VENEER SUPERVISOR Gender Identity Not on file Sexual Orientation Not on file documented as of this encounter Plan of Treatment Not on file documented as of this encounter Visit Diagnoses Diagnosis Pain in limb- Primary Pain in soft tissues of limb documented in this encounter Care Teams Editorial Cartoonist Relationship Specialty Start Date End Date Ahsan Cho Jr., MD [address] [place] [address] PCP - General Family Practice 05/03/14 documented as of this encounter
--- OUTSIDE RECORDS SUMMARY | 2025-06-27 18:56 | XMS_ITS | Clinical Summary ---
Author Organization [facility] Address [address] [place]: Epic Prelude ADT [place] [address] Care Team Providers Care Draftsperson Name Role Phone Bhaskar Alejandra MD Primary Care Provider + [phone] Allergies Active Allergy Reactions Criticality Noted Date Comments Codeine Unknown 05/06/2014 Pt states that codeine makes her very sick to her stomach. Medications cholecalciferol (VITAMIN D3) 400 unit Tablet Take 1,000 Units by mouth daily. Active ferrous sulfate 325 mg (65 mg iron) tablet Take 325 mg by mouth daily. Active omega-3 fatty acids-fish oil 300-1,000 mg Capsule Take 1 Capsule by mouth daily. Active ascorbic acid (VITAMIN C) 500 mg Tablet, Chewable Take 500 mg by mouth daily. Active atorvastatin (LIPITOR) 10 mg tablet Take 10 mg by mouth daily. Active amLODIPine (NORVASC) 5 mg tablet Take 5 mg by mouth daily. Active spironolactone (ALDACTONE) 25 mg tablet Take 25 mg by mouth daily. Active allopurinoL (ZYLOPRIM) 100 mg tablet Take 100 mg by mouth daily. Active traMADoL (ULTRAM) 50 mg tablet Take by mouth every 12 hours as needed for Pain. Active carvediloL (COREG) 25 mg tablet Take 25 mg by mouth 2 times daily with meals. Active rivaroxaban (XARELTO) 15 mg Tablet Take 15 mg by mouth daily with supper. 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 SANTA (acute kidney injury) 10/09/2022 Headache, unspecified 10/09/2022 UTI (lower urinary tract infection) 05/07/2014 Overview (01/09/2021): Present on admission Hypotension 05/06/2014 CAD (coronary artery disease) 05/06/2014 Pulmonary embolus 05/06/2014 Paroxysmal A-fib 05/06/2014 Resolved Problems Problem Noted Date Diagnosed Date Resolved Date Common bile duct (CBD) obstruction 10/09/2022 10/09/2022 Family History Medical History Relation Name Comments Healthy Brother Other Father Colon Cancer Healthy Sister Relation Name Status Comments Brother Alive Father Mother Sister Alive Social History Tobacco Use Types Packs/Day Years Used Date Smoking Tobacco: Never Smokeless Tobacco: Never Tobacco Cessation:Counseling Given: Not Answered Alcohol Use Standard Drinks/Week Comments No 0 (1 standard drink = 0.6 oz pur e alcohol) Comments No Sex and Gender Information Value Date Recorded Sex Assigned at Not on file Legal Sex Female 4:09 AM TITLE ATTORNEY Gender Identity Not on file Sexual Orientation Not on file Last Filed Vital Signs Vital Sign Reading Time Taken Comments Blood Pressure 110/58 10/10/2022 12:24 PM TITLE ATTORNEY Pulse 62 10/10/2022 12:24 PM TITLE ATTORNEY Temperature 36.7 C (98 F) 10/10/2022 12:24 PM TITLE ATTORNEY Respiratory Rate 18 10/10/2022 12:24 PM TITLE ATTORNEY Oxygen Saturation 93% 10/10/2022 12:24 PM TITLE ATTORNEY Inhaled Oxygen Concentration - - Weight 85 kg (187 lb 6.3 oz) 10/09/2022 3:38 AM TITLE ATTORNEY Height 157.5 cm (5' 2 ) 10/09/2022 3:38 AM TITLE ATTORNEY Body Mass Index 34.27 10/09/2022 3:38 AM TITLE ATTORNEY Plan of Treatment Health Maintenance Due Date Last Done Comments DTAP/TDAP/TD VACCINES (1 - Tdap) 11/22/1954 PNEUMOCOCCAL VACCINE 50+ YEARS (1 of 1 - PCV) 11/22/18 86 ZOSTER VACCINE (1 of 2) 11/22/1985 OSTEOPOROSIS SCREENING 11/22/2000 RSV VACCINE (60+ or ) (1 - 1-dose 75+ series) 11/22/2010 INFLUENZA VACCINE (#1) 2025 Medical Devices Implanted Type Area Crushing Mill Operator Device Identifier Shelf Expiration Date Model / Serial / Lot Cath Dlys Mahurkar 12fr 3lum [id number] 05/06/2014 Implanted: by Lauren Huang MD (Quantity not on file) Catheter Right: Neck COVIDIEN- NILDA CO 10/13/2015 [id number] / / [id number] Celect Ivc Filter- 014 Implanted: by Lauren Huang MD (Quantity not on file) Vena Cava COOK- INTERVENTIONAL RAD 02/10/2017 [facility] -1-JUG-CE LECT / / [id number] Insurance [place]ID [place] [employer] [facility] Advance Directives For more information, please contact: [phone] * NO CPR (In Event of Cardiopulmonary Arrest) (Latest Code Status on File) Date Activated Date Inactivated Comments 10/09/2022 5:13 AM 10/10/2022 5:25 PM Question Answer Comments Mechanical Ventilation (for respiratory distress) - Invasive (i.e. intubation): No Mechanical Ventilation (for respiratory distress) - Non-Invasive (i.e. BiPAP, CPAP): Yes Care Teams Draftsperson Relationship Specialty Start Date End Date Bhaskar Alejandra MD [facility] [place] [address] PCP - General Family Practice 10/10/22
--- OUTSIDE RECORDS SUMMARY | 2025-06-27 18:56 | XMS_ITS | Encounter Summary ---
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
--- OUTSIDE RECORDS SUMMARY | 2025-06-27 18:56 | XMS_ITS | Encounter Summary ---
Author Organization [facility] Address [address] [place] [address] Care Team Providers Care Biomedical Electronics Technician Name Role Phone Marquis Bills MD, Ahsan Barrios Primary Care Provider Encounter Details Date Type Department Care Team (Latest Contact Info) Description 01/24/1999 Outpatient Historical HIS [facility] Param Ferrer NO ADDRESS ON FILE Bronchopneumonia, organism unspecified (Primary Dx) Social History Tobacco Use Types Packs/Day Years Used Date Smoking Tobacco: Never Assessed Comments Unknown Sex and Gender Information Value Date Recorded Sex Assigned at Not on file 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
--- OUTSIDE RECORDS SUMMARY | 2025-06-27 18:56 | XMS_ITS | Clinical Summary ---
Author Organization [facility] Address [address] [place] [address] Phone Care Team Providers Care Internist Medical Doctor Md Name Role Phone Marquis Bills MD, Ahsan Barrios Primary Care Provider Allergies Active Allergy Reactions Criticality Noted Date Comments Codeine Unknown 05/06/2014 Pt states that codeine makes her very sick to her stomach. Medications calcium carbonate (TUMS) 200 mg (500 mg) Tablet, Chewable Take 500 mg by mouth daily with breakfast. Active omega-3 fatty acids-fish oil 300-1,000 mg Capsule Take 1 Cap by mouth daily. Active fe [id number] C-FA-IFC (TRINSICON) 110-0.5 mg Capsule Take 1 Cap by mouth daily. Active multivitamin (DAILY-VIVEK) tablet Take 1 Tab by mouth daily. Active simvastatin (ZOCOR) 20 mg tablet Take 20 mg by mouth daily at bedtime. Active ascorbic acid (VITAMIN C) 1,000 mg Tablet, Chewable Take 1,000 mg by mouth daily. Active VITAMIN E, DL,TOCOPHERYL ACET, (VITAMIN E, DL,ACETATE,) 400 unit Capsule Take by mouth daily. Active vitamin E 400 unit capsule Take 400 Units by mouth daily. Active metoprolol succinate (TOPROL XL) 25 mg Extended Release 24 hour tablet Take 50 mg by mouth daily. Active warfarin (COUMADIN) 5 mg tablet Take 1 Tab by mouth Daily LATE. 4 Active predniSONE (DELTASONE) 10 mg tablet Take 4 tabs by mouth daily during breakfast for 4 days, then take 3 tabs for 4 days, then 2 tabs for 4 days, then 1 tab for 4 days. 4 Active spironolactone (ALDACTONE) 25 mg tablet Take 1 Tab by mouth daily. 4 Active Active Problems Problem Noted Date Diagnosed Date UTI (lower urinary tract infection) 05/07/2014 Overview (05/07/2014): Present on admission Pulmonary embolus 05/06/2014 Hypotension 05/06/2014 Paroxysmal A-fib 05/06/2014 CAD (coronary artery disease) 05/06/2014 Family History Medical History Relation Name Comments Healthy Brother Other Father Colon Cancer Healthy Sister Relation Name Status Comments Brother Alive Father Mother Sister Alive Social History Tobacco Use Types Packs/Day Years Used Date Smoking Tobacco: Never Smokeless Tobacco: Never Alcohol Use Standard Drinks/Week Comments No 0 (1 standard drink = 0.6 oz pur e alcohol) Comments Unknown Sex and Gender Information Value Date Recorded Sex Assigned at Not on file Legal Sex Female 4:20 AM PATIENT REGISTRATION REP Gender Identity Not on file Sexual Orientation Not on file Occupation Industry Job Start Date Job End Date Not on file Not on file Not on file Not on file Last Filed Vital Signs Vital Sign Reading Time Taken Comments Blood Pressure 178/105 05/12/2014 7:00 AM CDT Pulse 70 05/12/2014 7:00 AM CDT Temperature 36 C (96.8 F) 05/12/2014 7:00 AM CDT Respiratory Rate 20 05/12/2014 7:00 AM CDT Oxygen Saturation 94% 05/12/2014 10: 30 AM CDT Inhaled Oxygen Concentration - - Weight 82.9 kg (182 lb 12.2 oz) 05/12/2014 6:14 AM CDT Height 157.5 cm (5' 2 ) 05/08/2014 10:2 2 PM CDT Body Mass Index 33.43 05/08/2014 10:22 PM CDT Plan of Treatment Health Maintenance Due Date Last Done Comments DTAP/TDAP/TD VACCINES (1 - Tdap) 11/22/1954 PNEUMOCOCCAL VACCINE 50+ YEARS (1 of 1 - PCV) 11/22/18 86 ZOSTER VACCINE (1 of 2) 11/22/1985 OSTEOPOROSIS SCREENING 11/22/2000 RSV VACCINE (60+ or ) (1 - 1-dose 75+ series) 11/22/2010 INFLUENZA VACCINE (#1) 2025 Medical Devices Implanted Type Area Supervisor Wheel Shop Device Identifier Shelf Expiration Date Model / Serial / Lot Cath Kourtney Cunningham 12fr 3lum [id number] 05/06/2014 Implanted: by Lauren Huang MD (Quantity not on file) Explanted:(Qu antity not on file) Catheter Right: Neck COVIDIEN- NILDA CO 10/13/2015 [id number] / / [id number] Celect Ivc Filter- 014 Implanted: by Lauren Huang MD (Quantity not on file) Explanted:(Qu antity not on file) Vena Cava COOK- INTERVENTIONAL RAD 02/10/2017 [facility]-65 -1-JUG-CE LECT / / [id number] Insurance MEDICAID [place] PL[place] [id number] O Advance Directives For more information, please contact: [phone] * Full Code (Latest Code Status on File) Date Activated Date Inactivated Comments 05/06/2014 7:10 AM 05/12/2014 5:06 PM Care Teams Internist Medical Doctor Md Relationship Specialty Start Date End Date Ahsan Cho Jr., MD [address] [place] [address] PCP - General Family Practice 05/03/14
--- OUTSIDE RECORDS SUMMARY | 2025-06-27 18:56 | XMS_ITS | Encounter Summary ---
Author Organization [facility] Address [address] [place] [address] Care Team Providers Care Transport Medic Name Role Phone Marqius Bills MD, Ahsan Barrios Primary Care Provider Encounter Details Date Type Department Care Team (Latest Contact Info) Description 12/08/2000 Outpatient Historical HIS [facility] Param Ferrer NO ADDRESS ON FILE Abdominal pain, unspecified site (Primary Dx); Benign hypertension; Screening for malignant neoplasm of the cervix Social History Tobacco Use Types Packs/Day Years Used Date Smoking Tobacco: Never Assessed Comments Unknown Sex and Gender Information Value Date Recorded Sex Assigned at Not on file 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
--- OUTSIDE RECORDS SUMMARY | 2025-06-27 18:56 | XMS_ITS | Encounter Summary ---
Author Organization [facility] Address [address] [place] [address] Care Team Providers Care Field Installation Technician Name Role Phone Marquis Bills MD, Ahsan Barrios Primary Care Provider Encounter Details Date Type Department Care Team (Latest Contact Info) Description 08/17/2001 Outpatient Historical HIS [facility] LayaMedardo MD [address] [address] SWELLING OF LIMB (Primary Dx) Social History Tobacco Use Types Packs/Day Years Used Date Smoking Tobacco: Never Assessed Comments Unknown Sex and Gender Information Value Date Recorded Sex Assigned at Not on file Legal Sex Female 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
--- OUTSIDE RECORDS SUMMARY | 2025-06-27 18:56 | XMS_ITS | Encounter Summary ---
Author Organization [facility] Address [address] [place] [address] Care Team Providers Care Social Sciences Lecturer Name Role Phone Marquis Bills MD, Ahsan Barrios Primary Care Provider Encounter Details Date Type Department Care Team (Latest Contact Info) Description 07/18/2001 Outpatient Historical HIS [facility] Delfin Rodriguez MD [address] [place] [address] CONTUSION OF THIGH (Primary Dx); HYPERTENSION NOS Social History Tobacco Use Types Packs/Day Years Used Date Smoking Tobacco: Never Assessed Comments Unknown Sex and Gender Information Value Date Recorded Sex Assigned at Not on file Legal Sex Female 4:20 AM 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
--- OUTSIDE RECORDS SUMMARY | 2025-06-27 18:56 | XMS_ITS | Encounter Summary ---
Author Organization [facility] Address [address] [place] [address] Care Team Providers Care Home Theater Specialist Name Role Phone Marquis Bills MD, Ahsan Barrios Primary Care Provider Encounter Details Date Type Department Care Team (Latest Contact Info) Description 12/06/2000 Outpatient Historical HIS [facility] Param Ferrer NO ADDRESS ON FILE Other malaise and fatigue (Primary Dx); Unspecified essential hypertension Social History Tobacco Use Types Packs/Day Years Used Date Smoking Tobacco: Never Assessed Comments Unknown Sex and Gender Information Value Date Recorded Sex Assigned at Not on file 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
--- OUTSIDE RECORDS SUMMARY | 2025-06-27 18:56 | XMS_ITS | Encounter Summary ---
Author Organization [facility] Address [address] [place] [address] Care Team Providers Care Design Painter Name Role Phone Marquis Bills MD, Ahsan Barrios Primary Care Provider Encounter Details Date Type Department Care Team (Latest Contact Info) Description 08/14/2003 Outpatient Historical HIS [facility] Delfin Rodriguez MD [address] [place] [address] Pure hypercholesterolem (Primary Dx); HYPERTENSION NOS Social History Tobacco Use Types Packs/Day Years Used Date Smoking Tobacco: Never Assessed Comments Unknown Sex and Gender Information Value Date Recorded Sex Assigned at Not on file 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
--- OUTSIDE RECORDS SUMMARY | 2025-06-27 18:56 | XMS_ITS | Encounter Summary ---
Author Organization [facility] Address [address] [place] [address] Care Team Providers Care Benefits Consultant Name Role Phone Marquis Bills MD, Ahsan Barrios Primary Care Provider Encounter Details Date Type Department Care Team (Latest Contact Info) Description 11/30/2000 Outpatient Historical HIS [facility] Param Ferrer NO ADDRESS ON FILE Unspecified essential hypertension (Primary Dx) Social History Tobacco Use Types Packs/Day Years Used Date Smoking Tobacco: Never Assessed Comments Unknown Sex and Gender Information Value Date Recorded Sex Assigned at Not on file 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
--- OUTSIDE RECORDS SUMMARY | 2025-06-27 18:56 | XMS_ITS | Encounter Summary ---
Author Organization [facility] Address [address] [place] [address] Care Team Providers Care Can Top Setter Name Role Phone Marquis Bills MD, Ahsan Barrios Primary Care Provider Encounter Details Date Type Department Care Team (Latest Contact Info) Description 01/27/1999 Outpatient Historical HIS [facility] Param Ferrer NO ADDRESS ON FILE Bronchopneumonia, organism unspecified (Primary Dx); Other malaise and fatigue Social History Tobacco Use Types Packs/Day Years Used Date Smoking Tobacco: Never Assessed Comments Unknown Sex and Gender Information Value Date Recorded Sex Assigned at Not on file 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
[2025-06-27 18:57] VITALS: BP 193/126; PULSE 70; RESP 18; O2SAT 94
--- NOTE | 2025-06-27 19:19 | XRR_ITS ---
PROCEDURE INFORMATION: Exam: XR Chest Exam date and time: 06/27/2025 7:35 PM Age: 89 years old Clinical indication: Shortness of breath; Additional info: Short of breath TECHNIQUE: Imaging protocol: Radiologic exam of the chest. Views: 1 view. COMPARISON: CT chest con [id number] 11/08/2024 11:10 AM FINDINGS: Lungs: Unremarkable. No consolidation. Pleural spaces: Unremarkable. No pleural effusion. No pneumothorax. Heart/Mediastinum: Unremarkable. No cardiomegaly. Bones/joints: Unremarkable. XR/XR chest 1V portable [id number] IMPRESSION: No acute findings.
[2025-06-27 19:42] LABS: Hematocrit 42.5 % (36-47); Hemoglobin 14.30 g/dL (11.27-16.99); Mean Corpuscular HGB Conc 33.6 g/dL (30-55); Mean Corpuscular Hemoglobin 31.2 pg (27-33); Mean Corpuscular Volume 92.6 fl (85-98); Nucleated Red Blood Cells % 0 %; Platelet Count 224 10^3/cmm (157-399); Red Blood Count 4.59 10^6/uL (3.85-5.65); White Blood Count 6.85 10^3/uL (3.29-11.43)
[2025-06-27 19:58] LABS: Alanine Aminotransferase 19 U/L (0-33); Albumin Level 3.7 g/dL (3.5-5.2); Alkaline Phosphatase 152 U/L (35-105); Anion Gap 14.1 (5-19); Aspartate Amino Transferase 25 U/L (0-32); Blood Urea Nitrogen 36 mg/dL (8-23); Calcium 9.2 mg/dL (8.5-10.5); Carbon Dioxide 26 mmol/L (22-29); Chloride 104 mmol/L (98-107); Creatinine Clr Calc Pharmacy 31.4683; Globulin 3.3 g/dL (1.3-4.6); Glucose 79 mg/dL (65-115); Lactic Sepsis W/Reflex 0.9 mmol/L (0.5-2.2); Osmolality Calculated 297 mOsm/kg (285-295); Potassium 4.1 mmol/L (3.5-5.1); Sodium 140 mmol/L (136-145); Total Protein 7.0 g/dL (6.6-8.7)
--- NOTE | 2025-06-27 19:59 | ECG_ITS ---
[facility] Date: 2025-06-27 Pat Name: Aura Villalpando Department: Room: Gender: Female Custom Protection Officer: : 1935 Requested By: Mackenzie Eldridge Order Number: [id number] Mary Ann MD: Kwadwo Khoury M.D. Measurements Intervals Gause Rate: 65 P: 12 SC: 199 QRS: -28 QRSD: 103 T: 6 QT: 409 QTc: 425 Interpretive Statements SINUS RHYTHM BORDERLINE LEFT AXIS DEVIATION [QRS AXIS < -20] MINIMAL VOLTAGE CRITERIA FOR LVH, CONSIDER NORMAL VARIANT [MEETS CRITERIA IN ONE OF: R(aVL), S(V1), R(V5), R(V5/V6)+S(V1)] nonspecific T wave abnormality in the inferior leads Compared to ECG 11/07/2024 14:01:54 NO SIGNIFICANT CHANGE Electronically Signed On 06-27-2025 21:00:06 CDT by Kwadwo Khoury M.D. [email or web address]
[2025-06-27 20:00] VITALS: BP 179/108; PULSE 72; RESP 16; O2SAT 93
--- NOTE | 2025-06-27 20:11 | W.ED.SOB ---
HPI - SOB/Dyspnea General: Chief Complaint: Shortness of Breath/Dyspnea Stated Complaint: Weakness / SOB Time Seen by Provider: 06/27/25 18:53 History of Present Illness: HPI Narrative: Patient is 89-year-old female with history of HTN, anxiety, with related of son yesterday, presents to the emergency room with shortness of breath. Her other son called her and just saw that she Sounding like she was running or super short of breath. He asked his mother to call 911. Patient was brought to the emergency room. She admits to chest tightness earlier in the day. She states this is now gone. She has not had a productive cough. No fevers. Blood pressure is quite elevated. Oxygen at bedside saturation is 90% on room air during my interview. Associated symptoms: Reports extremity pain; Deny abdominal pain, chest pain (Not this time, earlier today), fever(s), lightheadedness, nausea, orthopnea, palpitations, polydipsia, polyuria or vomiting Related Data Home Medications ?Medication ?Instructions ?Recorded ?Confirmed cholecalciferol (vitamin D3) 25 1,000 unit PO QAM 09/15/19 06/08/25 mcg (1,000 unit) capsule ferrous sulfate 325 mg (65 mg 325 mg PO QAM 09/15/19 06/08/25 iron) tablet,delayed release ascorbic acid (vitamin C) 500 mg 500 mg PO QAM 03/28/20 06/08/25 tablet vitamin B complex 1 tab PO QAM 03/28/20 06/08/25 acetaminophen 500 mg tablet 500 mg PO Q6H PRN Pain 11/10/22 06/08/25 cranberry 500 mg capsule 500 - 1,000 mg PO QAM 11/10/22 06/08/25 multivitamin 1 tab PO QAM 11/10/22 06/08/25 omega-3 fatty acids 1,000 mg 1,000 mg PO QAM 11/10/22 06/08/25 capsule calcium 600 mg (as 1 tab PO QAM 04/17/24 06/08/25 carbonate)-vitamin D3 5 mcg (200 unit) tablet vitamin E 268 mg (400 unit) capsule 268 mg PO QPM 04/17/24 06/08/25 zinc gluconate 50 mg tablet 50 mg PO QAM 04/17/24 06/08/25 Previous Rx's ?Medication ?Instructions ?Recorded nitroglycerin 0.4 mg sublingual 0.4 mg sublingual Q5M PRN chest 07/08/24 tablet pain #25 tabs allopurinol 100 mg tablet See Rx Instructions .Route 09/21/24 .COMPLEX #90 tabs losartan 25 mg tablet 25 mg PO DAILY hypertension #90 10/03/24 tabs rivaroxaban 15 mg tablet (Xarelto) See Rx Instructions .Route 11/15/24 .COMPLEX #90 tabs alprazolam 0.25 mg tablet 0.25 mg PO BID PRN anxiety #20 tabs 12/13/24 spironolactone 25 mg tablet See Rx Instructions .Route 02/06/25 .COMPLEX #45 tabs atorvastatin 10 mg tablet 10 mg PO QAM #90 tabs 02/20/25 omeprazole 40 mg capsule,delayed See Rx Instructions .Route 03/05/25 release .COMPLEX #90 caps tramadol 50 mg tablet 50 mg PO BID PRN Pain #60 tabs 06/23/25 cefdinir 300 mg capsule 300 mg PO BID 10 days #20 caps 06/27/25 doxycycline hyclate 100 mg capsule 100 mg PO BID 10 days #20 caps 06/27/25 methylprednisolone 4 mg tablets in See Rx Instructions PO .COMPLEX 06/27/25 a dose pack (Medrol (Dexter)) #21 ea Allergies Allergy/AdvReac Type Severity Reaction Status Date / Time codeine Allergy Mild vomiting Verified 06/27/25 18:57 Review of Systems General: Reports: 10 or more systems reviewed and unremarkable except in HPI and below Const: Denies: fever(s), chills or malaise Card: Reports: dyspnea on exertion; Denies: chest pain (Not this time, earlier today), palpitations, irregular heart rhythm, lightheadedness, pre-syncope or orthopnea Resp: Reports: dyspnea; Denies: productive cough or non-productive cough GI: Denies: abdominal pain, nausea or vomiting : Denies: flank pain or difficulty voiding Musc: Reports: extremity pain and extremity swelling Skin/Breast: Denies: rash or pruritus Neuro: Denies: headache(s) or numbness in extremities Psych: Reports: anxiety; Denies: depression Endo: Denies: polyuria or polydipsia PFSH ED PFSH: Medical History (Updated 06/27/25 @ 21:15 by JUAN ALBERTO Tyler) Atrial fibrillation Pt is on oral anti-coagulation for afib and PE Hx of TIA (transient ischemic attack) and stroke Pulmonary acid aspiration syndrome Dyslipidemia Chronic intractable headache Fatigue Mixed hyperlipidemia Essential hypertension Pulmonary embolism DVT (deep venous thrombosis) Chest pain Surgical History Hx of colonoscopy History of esophagogastroduodenoscopy (EGD) History of toe surgery Hx of cholecystectomy Family History Father Cancer Sister Cancer Other No family history of disorders Denies family history of Diabetes CAD (coronary artery disease) Clotting disorder Dementia Chronic kidney disease (CKD) Suicide Anesthesia complication Bleeding disorder Lung disease Stroke Social History Smoking and tobacco/nicotine status: never used tobacco/nicotine Alcohol intake: never Substance/Drug Use: never Marital status: / Physical Exam Const: COMMON NORMALS: no acute distress, average body habitus and patient oriented x3 HENMT: COMMON NORMALS: normocephalic and atraumatic HEAD & SCALP: normocephalic and atraumatic Eye: COMMON NORMALS: Equal, round and reactive pupils present and EOMs intact bilaterally PUPIL: Yes Equal, round and reactive pupils present Lymph: LYMPHATIC: no lymphadenopathy noted Chest: COMMONS NORMALS: normal inspection of the chest and normal palpation of entire chest wall Resp: AUSCULTATION: crackles Laterality: right (LL) and posterior (distal) GI: COMMON NORMALS: Normal to inspection, nondistended, normoactive bowel sounds present, Soft to palpation, non-tender and No hepatosplenomegaly present PALPATION: Yes Soft to palpation and Yes No hepatosplenomegaly present : COMMON NORMALS: Yes no CVA tenderness BLADDER/KIDNEY EXAM: Yes no CVA tenderness Back/Pelvis: COMMON NORMALS: no CVA tenderness Extremity: COMMON NORMALS: normal to inspection, full ROM and capillary refill normal Neuro: COMMON NORMALS: patient oriented x3 Psych: COMMON NORMALS: mental status grossly normal, Normal thought process present and cooperative THOUGHT PROCESS: Normal thought process present Skin: COMMON NORMALS: no rashes or lesions noted, no wounds and turgor normal GENERAL SKIN EXAM: no rashes or lesions noted and turgor normal Course Vital Signs: Vital signs: Vital Signs Temperature 97.6 F 06/27/25 18:51 Pulse Rate 76 06/27/25 22:03 Respiratory Rate 16 06/27/25 22:03 Blood Pressure 184/95 06/27/25 22:03 Pulse Oximetry 95 06/27/25 22:03 Oxygen Delivery Me thod Room Air 06/27/25 18:51 MDM - SOB/Dyspnea Medical Decision Making Patient is 89-year-old female reports to ED with increasing shortness of breath. Her only abnormality on exam was a right lower lobe crackles. Her oxygen saturation when she was being evaluated by myself is 90?91 initially. This did improve during her stay. She ruled out from a cardiac standpoint. Her chest x-ray was negative for pneumonia, however I would treat her for underlying pneumonia given her breath sounds, and her complaints. Unable to obtain an IV, and therefore this was changed to p.o. She had a slight amount of wheeze. I do suspect a viral component although her COVID, flu, RSV is negative. All of patient and son's questions answered to their satisfaction. Blood pressure improved with her nightly alprazolam dose. Medical Records I reviewed the patient's medical records. Lab Data I reviewed the patient's lab results. 06/27/25 19:33 06/27/25 19:33 Labs/Radiology: Radiology Impressions Chest X-Ray 06/27/25 19:19 IMPRESSION: No acute findings. Laboratory Results WBC 6.85 10^3/uL (3.29-11.43) 06/27/25 19:33 RBC 4.59 10^6/uL (3.85-5.65) 06/27/25 19:33 Hgb 14.30 g/dL (11.27-16.99) 06/27/25 19:33 Hct 42.5 % (36-47) 06/27/25 19:33 MCV 92.6 fl (85-98) 06/27/25 19:33 MCH 31.2 pg (27-33) 06/27/25 19:33 MCHC 33.6 g/dL (30-55) 06/27/25 19:33 RDW 13.9 % (12.1-15.1) 06/27/25 19:33 Plt Count 224 10^3/cmm (157-399) 06/27/25 19: MPV 11.0 fL (7.4-10.4) H 06/27/25 19:33 Neut % (Auto) 40.2 % 06/27/25 19:33 Lymph % (Auto) 47.4 % 06/27/25 19: [place] % (Auto) 11.1 % 06/27/25 19: Eos % (Auto) 0.7 % 06/27/25 19: Baso % (Auto) 0.3 % 06/27/25: Neut # (Auto) 2.75 10^3/uL (1.8-7.7) 06/27/25: Lymph # (Auto) 3.3 10^3/uL (0.8-4.8) 06/27/25 19: [place] # (Auto) 0.8 10^3/uL (0.2-0.9) 06/27/25: Eos # (Auto) 0.1 10^3/uL (0.0-0.8) 06/27/25 19: Baso # (Auto) 0.0 10^3/uL (0.0-0.1) 06/27/25: Nucleated RBC % (auto) 0 % 06/27/25: Nucleated RBCs # 0.0 /100WBC 06/27/25 19:33 Sodium 140 mmol/L (136-145) 06/27/25 19:33 Potassium 4.1 mmol/L (3.5-5.1) 06/27/25 19:33 Chloride 104 mmol/L (98-107) 06/27/25 19:33 Carbon Dioxide 26 mmol/L (22-29) 06/27/25 19:33 Anion Gap 14.1 (5-19) 06/27/25 19:33 BUN 36 mg/dL (8-23) H 06/27/25 19:33 Creatinine 1.2 mg/dL (0.5-0.9) H 06/27/25 19:33 GFR Calculation Not Reportable 06/27/25 19:33 Glucose 79 mg/dL (65-115) 06/27/25 19:33 Calculated Osmolality 297 mOsm/kg (285-295) H 06/27/25 19:33 Lactic Acid 0.9 mmol/L (0.5-2.2) 06/27/25 19:33 Calcium 9.2 mg/dL (8.5-10.5) 06/27/25 19:33 Total Bilirubin 1.4 mg/dL (0.15-1.2) H 06/27/25 19:33 AST 25 U/L (0-32) 06/27/25 19:33 ALT 19 U/L (0-33) 06/27/25 19:33 Alkaline Phosphatase 152 U/L (35-105) H 06/27/25 19:33 Troponin T Baseline 22 ng/L (0-10) H 06/27/25 19:33 Total Protein 7.0 g/dL (6.6-8.7) 06/27/25 19:33 Albumin 3.7 g/dL (3.5-5.2) 06/27/25 19:33 Globulin 3.3 g/dL (1.3-4.6) 06/27/25 19:33 Procalcitonin 0.07 ng/mL (0-0.5) 06/27/25 19:33 All radiology interpretation(s) finalized by discharge EKG Data EKG 1: Interpretation: Normal sinus rhythm without ST segment elevation, left axis, LVH Discharge Plan Discharge Patient Disposition: Home Clinical Impression: Abnormal breath sounds Condition: Stable Prescriptions: New doxycycline hyclate 100 mg capsule 100 mg PO BID 10 Days Qty: 20 0RF cefdinir 300 mg capsule 300 mg PO BID 10 Days Qty: 20 0RF methylprednisolone [Medrol (Dexter)] 4 mg tablets,dose pack See Rx Instructions .ROUTE .COMPLEX Qty: 21 0RF Rx Instructions: for 6 days No Action cholecalciferol (vitamin D3) 1,000 unit capsule 1,000 unit PO QAM ferrous sulfate 325 mg (65 mg iron) tablet,delayed release (DR/EC) 325 mg PO QAM ascorbic acid (vitamin C) 500 mg tablet 500 mg PO QAM vitamin B complex Tablet 1 tab PO QAM losartan 25 mg tablet 25 mg PO DAILY Qty: 90 3RF alprazolam 0.25 mg tablet 0.25 mg PO BID PRN (Reason: anxiety) Qty: 20 1RF lidocaine-epinephrine 1 %-1:100,000 solution 1 ml SUBCUT ONCE Qty: 1 0RF lidocaine (PF) 10 mg/mL (1 %) solution 10 mg SUBCUT ONCE Qty: 1 0RF allopurinol 100 mg tablet See Rx Instructions .ROUTE .COMPLEX Qty: 90 3RF Dose Instruction: TAKE 1 TABLET ONE TIME DAILY FOR GOUT Rx Instructions: TAKE 1 TABLET ONE TIME DAILY FOR GOUT Xarelto 15 mg tablet See Rx Instructions .ROUTE .COMPLEX Qty: 90 3RF Dose Instruction: TAKE 1 TABLET EVERY DAY Rx Instructions: TAKE 1 TABLET EVERY DAY spironolactone 25 mg tablet See Rx Instructions .ROUTE .COMPLEX Qty: 45 3RF Dose Instruction: TAKE 1/2 TABLET EVERY DAY Rx Instructions: TAKE 1/2 TABLET EVERY DAY atorvastatin 10 mg tablet 10 mg PO QAM Qty: 90 3RF omeprazole 40 mg capsule,delayed release(DR/EC) See Rx Instructions .ROUTE .COMPLEX Qty: 90 3RF Dose Instruction: TAKE 1 CAPSULE EVERY DAY Rx Instructions: TAKE 1 CAPSULE EVERY DAY tramadol 50 mg tablet 50 mg PO BID PRN (Reason: Pain) Qty: 60 5RF multivitamin Tablet 1 tab PO QAM omega-3 fatty acids 1,000 mg Capsule 1,000 mg PO QAM acetaminophen 500 mg Tablet 500 mg PO Q6H PRN (Reason: Pain) cranberry 500 mg Capsule 500 - 1,000 mg PO QAM nitroglycerin 0.4 mg tablet, sublingual 0.4 mg sublingual Q5M PRN (Reason: chest pain) Qty: 25 0RF Rx Instructions: do not exceed 3 doses per episode calcium carbonate-vitamin D3 600 mg-5 mcg (200 unit) Tablet 1 tab PO QAM zinc gluconate 50 mg Tablet 50 mg PO QAM vitamin E 268 mg (400 unit) Capsule 268 mg PO QPM Discharge Orders: Discharge ED (Routine); Ordered 06/27/25 Ordered By: Mackenzie Eldridge Referrals: Bhaskar Alejandra MD [Primary Care Provider, Family Practice] Patient Instructions: Shortness of Breath (ED), Opioid Safety, Pain Management, Patient Portal & [facility] Instructions Activity Restrictions/Additional Instructions: -You had abnormal breath sounds in your bottom right lung suggestive of pneumonia. - Doxycycline and cefdinir have been sent to your pharmacy to treat both these issues. Make sure you eat especially with doxycycline or you will have side effects of nausea, and think you are allergic to it. Just a little food before you take your antibiotics is important. - Make sure you take probiotic, or active culture yogurt to avoid infectious diarrhea -You have ruled out from a cardiac standpoint. This does not mean you do not have heart disease it means you do not have heart attack at this time. -Call to follow-up with your primary care physician. Thank you for choosing [facility] for your healthcare needs today. You have been screened and evaluated and felt safe for discharge. Health conditions do change or evolve sometimes and as such it is important that you follow up with your Primary Doctor to be re checked, 3-5 days is a general good time frame for follow up. You are always welcome to return to the ED for re assessment if your symptoms are worsening or you have new concerns Print Language: Citizen [place] Coding Level of Care Code ED Safety Sealer for Gayle Benitez
[2025-06-27 20:16] LABS: Troponin(5th) Baseline 22 ng/L (0-10)
[2025-06-27 20:18] LABS: Procalcitonin 0.07 ng/mL (0-0.5)
[2025-06-27 20:30] VITALS: BP 171/96; PULSE 74; RESP 15; O2SAT 93
--- NOTE | 2025-06-27 20:31 | PC.NURSE ---
Attempted IV, unsuccessful
[2025-06-27 21:35] VITALS: BP 184/95; PULSE 63; RESP 19; O2SAT 95
[2025-06-27 22:03] VITALS: BP 184/95; PULSE 76; RESP 16; O2SAT 95
== END 2025-06-27 22:10 | disposition home or self-care (01) ==
PROVIDERS: Emergency Provider Physician Assistant; PCP Family Medicine
DX: R06.89 Other abnormalities of breathing (principal); I10 Essential (primary) hypertension; E78.2 Mixed hyperlipidemia; Z86.73 Personal history of transient ischemic attack (TIA), and cerebral infarction without residual deficits
CPT/HCPCS: 36415; 71045; 80053; 83605; 84145; 84484; 85025; 93005; 99285; J8540; J9999

== ENCOUNTER 2025-07-17 15:04 | Outpatient (CLI) | payer MEDICARE, MEDICAID, SELFPAY ==
--- NOTE | 2025-07-17 15:30 | XR_ITS ---
WS: [id number] SCREENING DEXA SCAN [employer] CLINICAL INFORMATION: screening COMPARISON: 2013 FINDINGS: The L1-L4 bone mineral density measures 1.169 g/cm2. This corresponds to a T score score of -0.1 and Z score of 1.3. Left femoral neck bone mineral density measures 1.017 g/cm2. This corresponds to a T score of 0.1 and Z score of 2.1. Right femoral neck bone mineral density measures 1.068 g/cm2. This corresponds to a T score 0.5of and Z score of 2.5. Mean femoral neck bone mineral density measures 1.042 g/cm2. This corresponds to a T score of 0.3 and Z score of 2.3. XR/XR DEXA axial skeleton* [id number] IMPRESSION: Normal bone mineralization. Patient's FRAX calculated 10 year probability for major osteoporotic fracture i s 8.7% and osteoporotic hip fracture is 2.2%. Bone density lumbar spine increased 0.1% Bone density femoral necks increased 1.3%
== END 2025-07-17 15:05 | disposition home or self-care (01) ==
LOC: RAD 15:08
PROVIDERS: PCP Family Medicine; Visit Provider Family Medicine
DX: Z13.820 Encounter for screening for osteoporosis (principal); Z00.00 Encounter for general adult medical examination without abnormal findings
CPT/HCPCS: 77080

== ENCOUNTER 2025-09-09 19:35 | Emergency (ER) | payer MEDICARE, MEDICAID, SELFPAY ==
[2025-09-09 19:35] VITALS: BP 205/112; PULSE 92; RESP 17; TEMP 35.9; O2SAT 92; BMI 36.1
--- NOTE | 2025-09-09 19:44 | XRR_ITS ---
PROCEDURE INFORMATION: Exam: XR Right Knee Exam date and time: 09/09/2025 7:48 PM Age: 89 years old Clinical indication: Ground level fall TECHNIQUE: Imaging protocol: Radiologic exam of the right knee. Views: 3 views. COMPARISON: MR knee RT wo con* [id number] 06/06/2021 3:12 PM FINDINGS: Bones/joints: Diffuse osseous demineralization. No acute fracture. Normal alignment. Tricompartmental osteoarthritis. Soft tissues: Normal. Other findings: Vascular calcifications. XR/XR knee RT 3V* [id number] IMPRESSION: No acute osseous abnormality.
--- NOTE | 2025-09-09 19:46 | W.ED.LOWEXIN ---
HPI - Extremity Injury (Lower) General: Chief Complaint: Extremity Injury, Lower Stated Complaint: KNEE PAIN Source: patient Mode of arrival: ambulatory Limitations: no limitations History of Present Illness: Patient is an 89-year-old female who presents to ED today via EMS for evaluation of right knee pain. Patient states she was in the [employer] parking lot and was attempting to get into her son's vehicle. She states her son was attempting to help her get into the vehicle and states she was trying to pivot one leg when her other leg/knee gave out causing her to fall. She feels like her knee twisted. She did fall but fell onto her son and did not strike her head or sustain any other injuries. She states they were able to get home but states after this her right knee began swelling and throbbing thus prompting her to contact EMS. She arrives hypertensive. Apparently has not taken her blood pressure medications today. MD complaint: knee injury Onset (ago): hour(s) Injury: Right: knee Place: street/outdoors (grocery store) Severity: moderate Relieving factors: immobilization Exacerbating factors: weight bearing, movement and palpation Context: fall Associated symptoms: Reports no associated symptoms Other symptoms: none Related Data Home Medications ?Medication ?Instructions ?Recorded ?Confirmed cholecalciferol (vitamin D3) 25 1,000 unit PO QAM 09/15/19 07/11/25 mcg (1,000 unit) capsule ferrous sulfate 325 mg (65 mg 325 mg PO QAM 09/15/19 07/11/25 iron) tablet,delayed release ascorbic acid (vitamin C) 500 mg 500 mg PO QAM 03/28/20 07/11/25 tablet vitamin B complex 1 tab PO QAM 03/28/20 07/11/25 acetaminophen 500 mg tablet 500 mg PO Q6H PRN Pain 11/10/22 07/11/25 cranberry 500 mg capsule 500 - 1,000 mg PO QAM 11/10/22 07/11/25 multivitamin 1 tab PO QAM 11/10/22 07/11/25 omega-3 fatty acids 1,000 mg 1,000 mg PO QAM 11/10/22 07/11/25 capsule calcium 600 mg (as 1 tab PO QAM 04/17/24 07/11/25 carbonate)-vitamin D3 5 mcg (200 unit) tablet vitamin E 268 mg (400 unit) capsule 268 mg PO QPM 04/17/24 07/11/25 zinc gluconate 50 mg tablet 50 mg PO QAM 04/17/24 07/11/25 Previous Rx's ?Medication ?Instructions ?Recorded nitroglycerin 0.4 mg sublingual 0.4 mg sublingual Q5M PRN chest 07/08/24 tablet pain #25 tabs allopurinol 100 mg tablet See Rx Instructions .Route 09/21/24 .COMPLEX #90 tabs losartan 25 mg tablet 25 mg PO DAILY hypertension #90 10/03/24 tabs rivaroxaban 15 mg tablet (Xarelto) See Rx Instructions .Route 11/15/24 .COMPLEX #90 tabs alprazolam 0.25 mg tablet 0.25 mg PO BID PRN anxiety #20 tabs 12/13/24 spironolactone 25 mg tablet See Rx Instructions .Route 02/06/25 .COMPLEX #45 tabs atorvastatin 10 mg tablet 10 mg PO QAM #90 tabs 02/20/25 omeprazole 40 mg capsule,delayed See Rx Instructions .Route 03/05/25 release .COMPLEX #90 caps tramadol 50 mg tablet 50 mg PO BID PRN Pain #60 tabs 06/23/25 methylprednisolone 4 mg tablets in See Rx Instructions PO .COMPLEX 06/27/25 a dose pack (Medrol (Dexter)) #21 ea Allergies Allergy/AdvReac Type Severity Reaction Status Date / Time codeine Allergy Mild vomiting Verified 06/27/25 18:57 Review of Systems Const: Denies: fever(s), chills, body aches, fatigue or malaise Card: Denies: chest pain Resp: Denies: dyspnea GI: Denies: abdominal pain : Denies: flank pain, dysuria or hematuria Musc: Reports: joint pain (R knee) and joint swelling (R knee); Denies: neck pain, back pain, extremity pain or extremity swelling Neuro: Denies: headache(s), numbness in extremities, weakness in extremities or sensory changes PFSH ED PFSH: Medical History Atrial fibrillation Pt is on oral anti-coagulation for afib and PE Hx of TIA (transient ischemic attack) and stroke Pulmonary acid aspiration syndrome Dyslipidemia Chronic intractable headache Fatigue Mixed hyperlipidemia Essential hypertension Pulmonary embolism DVT (deep venous thrombosis) Chest pain Surgical History Hx of colonoscopy History of esophagogastroduodenoscopy (EGD) History of toe surgery Hx of cholecystectomy Family History Father Cancer Sister Cancer Other No family history of disorders Denies family history of Diabetes CAD (coronary artery disease) Clotting disorder Dementia Chronic kidney disease (CKD) Suicide Anesthesia complication Bleeding disorder Lung disease Stroke Social History Smoking and tobacco/nicotine status: never used tobacco/nicotine Alcohol intake: never Substance/Drug Use: never Marital status: / Physical Exam Const: COMMON NORMALS: no acute distress, average body habitus, patient oriented x3, no limitations, healthy appearing, alert and well nourished GENERAL APPEARANCE: cooperative ORIENTATION/CONSCIOUSNESS: Yes awake, Yes oriented to person, Yes oriented to place and Yes oriented to time HENMT: COMMON NORMALS: normocephalic, atraumatic and TM's normal bilaterally HEAD & SCALP: normal to inspection, normocephalic and atraumatic; no Hicks's sign, no hematoma and no raccoon eyes FACE & SINUS: normal facial exam TYMPANIC MEMBRANE: TM's normal bilaterally MOUTH: other (no intraoral injuries noted) Eye: COMMON NORMALS: Equal, round and reactive pupils present and EOMs intact bilaterally GENERAL EYE: appearance normal, both eyes and all related structures and normal light reflex PUPIL: Yes Equal, round and reactive pupils present DIRECT OPHTHALMOSCOPY: Yes normal light reflex Neck/C-Spine: COMMON NORMALS: full ROM GENERAL: Yes normal visual inspection CERVICAL SPINE: Yes cervical ROM normal, No pain with cervical ROM, No Cervical spine tenderness, No step off deformity and No Paracervical muscle tenderness Chest: COMMONS NORMALS: normal inspection of the chest and normal palpation of entire chest wall Resp: COMMON NORMALS: normal respiratory effort and clear to auscultation bilaterally AUSCULTATION: clear to auscultation bilaterally Cardio: COMMON NORMALS: regular rate and regular rhythm RATE: regular rate RHYTHM: regular rhythm GI: COMMON NORMALS: Normal to inspection, nondistended, normoactive bowel sounds present, Soft to palpation, non-tender, No hepatosplenomegaly present and no masses INSPECTION: Yes normal to inspection and No abdominal wall ecchymosis AUSCULTATION: Yes normoactive bowel sounds PALPATION: Yes Soft to palpation and Yes No hepatosplenomegaly present Back/Pelvis: COMMON NORMALS: thoracic and lumbar spine normal to inspection, no thoracic nor lumbar tenderness and thoraco-lumbar ROM normal Extremity: COMMON NORMALS: capillary refill normal and no calf tenderness GENERAL: Yes normal exam except as noted RIGHT LOWER EXTREMITY: Yes knee joint (TTP anterior R knee pain; edema present) Right knee: Yes ROM (limited passive ROM due to discomfort) and Yes neurovascular exam (normal) Neuro: ANDRAE COMA SCALE: document GCS findings Andrae coma scale eye opening: Spontaneous Andrae coma scale verbal response: Orientated Andrae coma scale motor response: Obey commands Rancocas coma scale total score: 15 COMMON NORMALS: patient oriented x3, CN's II-XII intact bilaterally, moves all extremities, no focal motor deficits and no sensory deficits noted SENSORIUM/ORIENTATION: Yes alert, Yes oriented to person, Yes oriented to place and Yes oriented to time SPEECH: speech normal GAIT: Yes Normal gait present Skin: COMMON NORMALS: no rashes or lesions noted GENERAL SKIN EXAM: no rashes or lesions noted TRAUMA: no lacerations or abrasions Course Reevaluation(s): Reevaluation #1: Ambulated well here in ED with a walker. ES Time: 20:54 Vital Signs: Vital signs: Vital Signs Temperature 96.6 F L 09/09/25 19:35 Pulse Rate 63 09/09/25 19:59 Respiratory Rate 20 H 09/09/25 20:28 Blood Pressure 210/122 09/09/25 19:59 Pulse Oximetry 92 09/09/25 20:28 Oxygen Delivery Me thod Room Air 09/09/25 19:35 MDM - Extremity Injury (Lower) Medical Decision Making Patient is a nice 89-year-old female here after a twisting injury involving her right knee. XR of the right knee was obtained and unremarkable. She was placed in an CLINT and was ambulatory here in the emergency department with the help of a walker. She had no other complaints at this time and feels comfortable going home. She was noted to be very hypertensive upon arrival. She states she had not taken her blood pressure medications today. This did decline without intervention here and at time of discharge blood pressure is 160/98. Recommend she keep a blood pressure log at home and primary care can adjust her blood pressure medications based on this log. Lab Data Radiology Impressions Knee X-Ray 09/09/25 19:44 IMPRESSION: No acute osseous abnormality. No radiology studies performed this visit Discharge Plan Discharge Patient Disposition: Home Clinical Impression: Injury of knee, right Qualifiers: Encounter type: initial encounter Qualified Code(s): S89.91XA - Unspecified injury of right lower leg, initial encounter Condition: Stable Prescriptions: No Action cholecalciferol (vitamin D3) 1,000 unit capsule 1,000 unit PO QAM ferrous sulfate 325 mg (65 mg iron) tablet,delayed release (DR/EC) 325 mg PO QAM ascorbic acid (vitamin C) 500 mg tablet 500 mg PO QAM vitamin B complex Tablet 1 tab PO QAM losartan 25 mg tablet 25 mg PO DAILY Qty: 90 3RF alprazolam 0.25 mg tablet 0.25 mg PO BID PRN (Reason: anxiety) Qty: 20 1RF lidocaine-epinephrine 1 %-1:100,000 solution 1 ml SUBCUT ONCE Qty: 1 0RF lidocaine (PF) 10 mg/mL (1 %) solution 10 mg SUBCUT ONCE Qty: 1 0RF allopurinol 100 mg tablet See Rx Instructions .ROUTE .COMPLEX Qty: 90 3RF Dose Instruction: TAKE 1 TABLET ONE TIME DAILY FOR GOUT Rx Instructions: TAKE 1 TABLET ONE TIME DAILY FOR GOUT Xarelto 15 mg tablet See Rx Instructions .ROUTE .COMPLEX Qty: 90 3RF Dose Instruction: TAKE 1 TABLET EVERY DAY Rx Instructions: TAKE 1 TABLET EVERY DAY spironolactone 25 mg tablet See Rx Instructions .ROUTE .COMPLEX Qty: 45 3RF Dose Instruction: TAKE 1/2 TABLET EVERY DAY Rx Instructions: TAKE 1/2 TABLET EVERY DAY atorvastatin 10 mg tablet 10 mg PO QAM Qty: 90 3RF omeprazole 40 mg capsule,delayed release(DR/EC) See Rx Instructions .ROUTE .COMPLEX Qty: 90 3RF Dose Instruction: TAKE 1 CAPSULE EVERY DAY Rx Instructions: TAKE 1 CAPSULE EVERY DAY tramadol 50 mg tablet 50 mg PO BID PRN (Reason: Pain) Qty: 60 5RF multivitamin Tablet 1 tab PO QAM omega-3 fatty acids 1,000 mg Capsule 1,000 mg PO QAM acetaminophen 500 mg Tablet 500 mg PO Q6H PRN (Reason: Pain) cranberry 500 mg Capsule 500 - 1,000 mg PO QAM nitroglycerin 0.4 mg tablet, sublingual 0.4 mg sublingual Q5M PRN (Reason: chest pain) Qty: 25 0RF Rx Instructions: do not exceed 3 doses per episode methylprednisolone [Medrol (Dexter)] 4 mg tablets,dose pack See Rx Instructions .ROUTE .COMPLEX Qty: 21 0RF Rx Instructions: for 6 days calcium carbonate-vitamin D3 600 mg-5 mcg (200 unit) Tablet 1 tab PO QAM zinc gluconate 50 mg Tablet 50 mg PO QAM vitamin E 268 mg (400 unit) Capsule 268 mg PO QPM Discharge Orders: Discharge ED (Routine); Ordered 09/09/25 Ordered By: Rosalind De La Garza Referrals: Bhaskar Alejandra MD [Primary Care Provider, Family Practice] Patient Instructions: Patient Portal & G[facility] Instructions Activity Restrictions/Additional Instructions: As we discussed, your knee x-ray did not show any acute fractures. I would like you to ice and elevate the knee is much as possible to help with swelling. You may take [id number] analgesics such as Tylenol and ibuprofen. You may wear the CLINT wrap that was given to you today. Do not ambulate unless you are walking with the help of your walker. Please follow-up with primary care in 1 to 2 weeks if your knee does not begin to improve with conservative treatment at home. As we discussed, you need to keep a blood pressure log at home twice daily and follow-up with primary care so they can adjust blood pressure medications based on this log. Print Language: Singaporean Coding Level of Care Code ED Varnish Blender for Gayle Benitez
[2025-09-09 19:53] VITALS: BP 205/112
[2025-09-09 19:59] VITALS: BP 210/122; PULSE 63; RESP 19; O2SAT 96
--- OUTSIDE RECORDS SUMMARY | 2025-09-09 19:59 | XMS_ITS | Clinical Summary ---
Author Organization [facility] Address [address] [place] [address] Phone Care Team Providers Care Video Game Engineer Name Role Phone Marquis Bills MD, Ahsan [...] 1 Cap by mouth daily. 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 Gender Identity Not on file Sexual Orientation [...] (#1) 2025 Medical Devices Implanted Type Area Operator Supply Device Identifier Shelf Expiration Date Model / Serial / Lot Cath Kourtney Cunningham 12fr 3lum [id number] 05/06/2014 Implanted: by Lauren Huang MD (Quantity not on file) Explanted:(Qu antity not on file) Catheter Right: Neck COVIDIEN- NILDA CO 10/13/2015 [id number] / / [id number] Celect Ivc Filter- 014 Implanted: by Lauren Huang MD (Quantity not on file) Explanted:(Qu antity not on file) Vena Cava COOK- INTERVENTIONAL RAD 02/10/2017 [id number] LECT / / [id number] Insurance [place] [id number] O Advance Directives For more information, please contact: [phone] * Full Code (Latest Code Status on File) Date Activated Date Inactivated Comments 05/06/2014 7:10 AM 05/12/2014 5:06 PM Care Teams Video Game Engineer Relationship Specialty Start Date End Date Ahsan Cho Jr., MD [address] [place] [address] PCP - General Family Practice 05/03/14
--- OUTSIDE RECORDS SUMMARY | 2025-09-09 19:59 | XMS_ITS | Encounter Summary ---
Author Organization [facility] Address [address] [place] [address] Care Team Providers Care Entry Level Account Manager Name Role Phone Marquis Bills MD, Ahsan Barrios Primary Care Provider Encounter Details Date Type Department Care Team (Latest Contact Info) Description 07/04/2002 Outpatient Historical HIS [facility] Delfin Rodriguez MD [address] [place], [place] [id number] HYPERTENSION NOS (Primary Dx) Social History Tobacco Use Types Packs/Day Years Used Date Smoking Tobacco: Never Assessed Comments Unknown Sex and Gender Information Value Date Recorded Sex Assigned at Not on file 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
--- OUTSIDE RECORDS SUMMARY | 2025-09-09 19:59 | XMS_ITS | Encounter Summary ---
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
--- OUTSIDE RECORDS SUMMARY | 2025-09-09 19:59 | XMS_ITS | Encounter Summary ---
Author Organization [facility] Address [address] [place] [address] Care Team Providers Care Architect Name Role Phone Marquis Bills MD, Ahsan Barrios Primary Care Provider Encounter Details Date Type Department Care Team (Latest Contact Info) Description 02/25/1999 Outpatient Historical HIS [facility] Param Ferrer NO ADDRESS ON FILE Other abnormal clinical finding (Primary Dx) Social History Tobacco Use Types Packs/Day Years Used Date Smoking Tobacco: Never Assessed Comments Unknown Sex and Gender Information Value Date Recorded Sex Assigned at Not on file 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
--- OUTSIDE RECORDS SUMMARY | 2025-09-09 19:59 | XMS_ITS | Encounter Summary ---
Author Organization [facility] Address [address] [place] [address] Care Team Providers Care Fondant Machine Operator Name Role Phone Marquis Bills MD, Ahsan Barrios Primary Care Provider Encounter Details Date Type Department Care Team (Latest Contact Info) Description 12/08/2000 Outpatient Historical HIS [facility] Param Ferrer NO ADDRESS ON FILE Abdominal pain, unspecified site (Primary Dx); Benign hypertension; Screening for malignant neoplasm of the cervix Social History Tobacco Use Types Packs/Day Years Used Date Smoking Tobacco: Never Assessed Comments Unknown Sex and Gender Information Value Date Recorded Sex Assigned at Not on file 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
--- OUTSIDE RECORDS SUMMARY | 2025-09-09 19:59 | XMS_ITS | Encounter Summary ---
Author Organization [facility] Address [address] [place] [address] Care Team Providers Care Jacquard Loom Carpet Weaver Name Role Phone Marquis Bills MD, Ahsan Barrios Primary Care Provider Encounter Details Date Type Department Care Team (Latest Contact Info) Description 12/02/2001 Outpatient Historical HIS [facility] Delfin Rodriguez MD [address] [place], [place] [id number] ACUTE URI NOS (Primary Dx); OTHER MALAISE AND FATIGUE; FEMALE CLIMACTERIC STATE Social History Tobacco Use Types Packs/Day Years Used Date Smoking Tobacco: Never Assessed Comments Unknown Sex and Gender Information Value Date Recorded Sex Assigned at Not on file 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
--- OUTSIDE RECORDS SUMMARY | 2025-09-09 19:59 | XMS_ITS | Encounter Summary ---
Author Organization [facility] Address [address] [place] [address] Care Team Providers Care Dramatic Reader Name Role Phone Marquis Bills MD, Ahsan Barrios Primary Care Provider Encounter Details Date Type Department Care Team (Latest Contact Info) Description 01/24/1999 Outpatient Historical HIS [facility] Param Ferrer NO ADDRESS ON FILE Bronchopneumonia, organism unspecified (Primary Dx) Social History Tobacco Use Types Packs/Day Years Used Date Smoking Tobacco: Never Assessed Comments Unknown Sex and Gender Information Value Date Recorded Sex Assigned at Not on file 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
--- OUTSIDE RECORDS SUMMARY | 2025-09-09 19:59 | XMS_ITS | Encounter Summary ---
Author Organization [facility] Address [address] [place] [address] Care Team Providers Care Insurance Processing Clerk Name Role Phone Marquis Bills MD, Ahsan Barrios Primary Care Provider Encounter Details Date Type Department Care Team (Latest Contact Info) Description 07/17/2003 Outpatient Historical HIS [facility] Delfin Rodriguez MD [address], [place] [phone] SCREENING MAL NEOP-CERVIX (Primary Dx) Social History Tobacco Use Types Packs/Day Years Used Date Smoking Tobacco: Never Assessed Comments Unknown Sex and Gender Information Value Date Recorded Sex Assigned at Not on file 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
--- OUTSIDE RECORDS SUMMARY | 2025-09-09 19:59 | XMS_ITS | Clinical Summary ---
Author Organization [facility] Address [address] Shields: Epic Prelude ADT MYLES THOMSON [address] Care Team Providers Care Apprentice Cosmetologist Name Role Phone Bhaskar Alejandra MD Primary Care Provider [phone] Allergies Active Allergy Reactions Criticality Noted Date [...] on file Legal Sex Female 4:09 AM ELECTRO MECHANICAL SOLAR TECHNICIAN Gender Identity Not on file Sexual Orientation Not on file Last Filed Vital Signs Vital Sign Reading Time Taken Comments Blood Pressure 110/58 10/10/2022 12:24 PM ELECTRO MECHANICAL SOLAR TECHNICIAN Pulse 62 10/10/2022 12:24 PM ELECTRO MECHANICAL SOLAR TECHNICIAN Temperature 36.7 C (98 F) 10/10/2022 12:24 PM ELECTRO MECHANICAL SOLAR TECHNICIAN Respiratory Rate 18 10/10/2022 12:24 PM ELECTRO MECHANICAL SOLAR TECHNICIAN Oxygen Saturation 93% 10/10/2022 12:24 PM ELECTRO MECHANICAL SOLAR TECHNICIAN Inhaled Oxygen Concentration - - Weight 85 kg (187 lb 6.3 oz) 10/09/2022 3:38 AM ELECTRO MECHANICAL SOLAR TECHNICIAN Height 157.5 cm (5' 2 ) 10/09/2022 3:38 AM ELECTRO MECHANICAL SOLAR TECHNICIAN Body Mass Index 34.27 10/09/2022 3:38 AM ELECTRO MECHANICAL SOLAR TECHNICIAN Plan of Treatment Health Maintenance Due Date Last Done Comments DTAP/TDAP/TD VACCINES (1 - Tdap) 11/22/1954 PNEUMOCOCCAL VACCINE 50+ YEARS (1 of 1 - PCV) 11/22/18 86 ZOSTER VACCINE (1 of 2) 11/22/1985 OSTEOPOROSIS SCREENING 11/22/2000 RSV VACCINE (60+ or ) (1 - 1-dose 75+ series) 11/22/2010 INFLUENZA VACCINE (#1) 2025 Medical Devices Implanted Type Area Die Trimmer Device Identifier Shelf Expiration Date Model / Serial / Lot Cath Kourtney Cunningham 12fr 3lum [id number] 05/06/2014 Implanted: by Lauren Huang MD (Quantity not on file) Catheter Right: Neck COVIDIEN- [employer]ILDA [employer] 10/13/2015 [id number] [id number] / / [id number] Celect Ivc Filter- 014 Implanted: by Lauren Huang MD (Quantity not on file) Vena Cava COOK- INTERVENTIONAL RAD 02/10/2017 [place]-65 -1-JUG-CE LECT / / [id number] [place] [facility] Advance Directives For more information, please contact: [phone] * NO CPR (In Event of Cardiopulmonary Arrest) (Latest Code Status on File) Date Activated Date Inactivated Comments 10/09/2022 5:13 AM 10/10/2022 5:25 PM Question Answer Comments Mechanical Ventilation (for respiratory distress) - Invasive (i.e. intubation): No Mechanical Ventilation (for respiratory distress) - Non-Invasive (i.e. BiPAP, CPAP): Yes Care Teams Apprentice Cosmetologist Relationship Specialty Start Date End Date Bhaskar Alejandra MD [address] [place] [id number] PCP - General Family Practice 10/10/22
--- OUTSIDE RECORDS SUMMARY | 2025-09-09 19:59 | XMS_ITS | Encounter Summary ---
Author Organization [facility] Address [address] [place] [address] Care Team Providers Care Crisis Clinician Name Role Phone Marquis Bills MD, Ahsan Barrios Primary Care Provider Encounter Details Date Type Department Care Team (Latest Contact Info) Description 08/17/2001 Outpatient Historical HIS [facility] LayaMedardo MD [address] [address] SWELLING OF LIMB (Primary Dx) Social History Tobacco Use Types Packs/Day Years Used Date Smoking Tobacco: Never Assessed Comments Unknown Sex and Gender Information Value Date Recorded Sex Assigned at Not on file 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
--- OUTSIDE RECORDS SUMMARY | 2025-09-09 19:59 | XMS_ITS | Encounter Summary ---
Author Organization [facility] Address [address] [place] [address] Care Team Providers Care Agriscience Teacher Name Role Phone Marquis Bills MD, Ahsan Barrios Primary Care Provider Encounter Details Date Type Department Care Team (Latest Contact Info) Description 01/21/1999 Outpatient Historical HIS [facility] Param Ferrer NO ADDRESS ON FILE Chronic airway obstruction, not elsewhere classified (CMS/HCC) (Primary Dx); Unspecified essential hypertension Social History Tobacco Use Types Packs/Day Years Used Date Smoking Tobacco: Never Assessed Comments Unknown Sex and Gender Information Value Date Recorded Sex Assigned at Not on file Legal Sex Female 4:20 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
--- OUTSIDE RECORDS SUMMARY | 2025-09-09 19:59 | XMS_ITS | Encounter Summary ---
Author Organization [facility] Address [address] [place] [address] Care Team Providers Care Deep Well Contractor Name Role Phone Marquis Bills MD, Ahsan Barrios Primary Care Provider Encounter Details Date Type Department Care Team (Latest Contact Info) Description 11/30/2000 Outpatient Historical HIS [facility] Param Ferrer NO ADDRESS ON FILE Unspecified essential hypertension (Primary Dx) Social History Tobacco Use Types Packs/Day Years Used Date Smoking Tobacco: Never Assessed Comments Unknown Sex and Gender Information Value Date Recorded Sex Assigned at Not on file 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
--- OUTSIDE RECORDS SUMMARY | 2025-09-09 19:59 | XMS_ITS | Encounter Summary ---
Author Organization [facility] Address [address] [place] [address] Care Team Providers Care Laboratory Coordinator Name Role Phone Marquis Bills MD, Ahsan Barrios Primary Care Provider Encounter Details Date Type Department Care Team (Latest Contact Info) Description 09/20/2002 Outpatient Historical HIS [facility] Delfin Rodriguez MD [address] [place], [place] [phone] BUNION (Primary Dx); PREOP EXAM OTHER UNSPECIFIED Social History Tobacco Use Types Packs/Day Years Used Date Smoking Tobacco: Never Assessed Comments Unknown Sex and Gender Information Value Date Recorded Sex Assigned at Not on file Legal Sex Female 4:20 AM BASE DRAW OPERATOR Gender Identity Not on file Sexual Orientation Not on file documented as of this encounter Plan of Treatment Not on file documented as of this encounter Visit Diagnoses Diagnosis Bunion- Primary Preoperative examination, unspecified documented in this encounter Care Teams Laboratory Coordinator Relationship Specialty Start Date End Date Ahsan Cho Jr., MD [address] [place] [address] PCP - General Family Practice 05/03/14 documented as of this encounter
--- OUTSIDE RECORDS SUMMARY | 2025-09-09 19:59 | XMS_ITS | Encounter Summary ---
Author Organization [facility] Address [address] [place] [address] Care Team Providers Care Marketing Director Assisted Living Name Role Phone Marquis Bills MD, Ahsan Barrios Primary Care Provider Encounter Details Date Type Department Care Team (Latest Contact Info) Description 07/17/2003 Outpatient Historical HIS [facility] Delfin Rodriguez MD [address] [place], [place] [phone] Routine medical exam (Primary Dx); SCREENING MAL NEOP-CERVIX; SCREENING MAL NEOP-BREAST,UNSPEC; ENURESIS NOS Social History Tobacco Use Types Packs/Day Years Used Date Smoking Tobacco: Never Assessed Comments Unknown Sex and Gender Information Value Date Recorded Sex Assigned at Not on file Legal Sex Female 4:20 AM STATE MANAGER Gender Identity Not on file Sexual Orientation Not on file documented as of this encounter Plan of Treatment Not on file documented as of this encounter Visit Diagnoses Diagnosis Routine medical exam- Primary Routine general medical examination at a health care facility Screening for malignant neoplasm of the cervix Breast screening, unspecified Unspecified urinary incontinence documented in this encounter Care Teams Marketing Director Assisted Living Relationship Specialty Start Date End Date Ahsan Cho Jr., MD [address] [place] [address] PCP - General Family Practice 05/03/14 documented as of this encounter
--- OUTSIDE RECORDS SUMMARY | 2025-09-09 19:59 | XMS_ITS | Encounter Summary ---
Author Organization [facility] Address [address] [place] [address] Care Team Providers Care Poultry Breeder Name Role Phone Marquis Bills MD, Ahsan Barrios Primary Care Provider Encounter Details Date Type Department Care Team (Latest Contact Info) Description 12/14/2001 Outpatient Historical HIS [facility] Delfin Rodriguez MD [address] [place], [place] [id number] HYPERTENSION NOS (Primary Dx); OTHER MALAISE AND FATIGUE Social History Tobacco Use Types Packs/Day Years Used Date Smoking Tobacco: Never Assessed Comments Unknown Sex and Gender Information Value Date Recorded Sex Assigned at Not on file Legal Sex Female 4:20 AM GRAPHIC EDITOR Gender Identity Not on file Sexual Orientation Not on file documented as of this encounter Plan of Treatment Not on file documented as of this encounter Visit Diagnoses Diagnosis Unspecified essential hypertension- Primary Other malaise and fatigue documented in this encounter Care Teams Poultry Breeder Relationship Specialty Start Date End Date Ahsan Cho Jr., MD [address] [place] [address] PCP - General Family Practice 05/03/14 documented as of this encounter
--- OUTSIDE RECORDS SUMMARY | 2025-09-09 19:59 | XMS_ITS | Encounter Summary ---
Author Organization [facility] Address [address] [place] [address] Care Team Providers Care Glueline Worker Name Role Phone Marquis Bills MD, Ahsan Barrios Primary Care Provider Encounter Details Date Type Department Care Team (Latest Contact Info) Description 01/27/1999 Outpatient Historical HIS [facility] Param Ferrer NO ADDRESS ON FILE Bronchopneumonia, organism unspecified (Primary Dx); Other malaise and fatigue Social History Tobacco Use Types Packs/Day Years Used Date Smoking Tobacco: Never Assessed Comments Unknown Sex and Gender Information Value Date Recorded Sex Assigned at Not on file Legal Sex Female 4:20 AM ELECTRICAL INSPECTOR Gender Identity Not on file Sexual Orientation Not on file documented as of this encounter Plan of Treatment Not on file documented as of this encounter Visit Diagnoses Diagnosis Bronchopneumonia, organism unspecified- Primary Other malaise and fatigue documented in this encounter Care Teams Glueline Worker Relationship Specialty Start Date End Date Ahsan Cho Jr., MD [address] [place] [address] PCP - General Family Practice 05/03/14 documented as of this encounter
--- OUTSIDE RECORDS SUMMARY | 2025-09-09 19:59 | XMS_ITS | Encounter Summary ---
Author Organization [facility] Address [address] [place] [address] Care Team Providers Care Grinding Machine Operator Portable Name Role Phone Marquis Bills MD, Ahsan Barrios Primary Care Provider Encounter Details Date Type Department Care Team (Latest Contact Info) Description 08/14/2003 Outpatient Historical HIS [facility] Delfin Rodriguez MD [address] [place], [place] [phone] Pure hypercholesterolem (Primary Dx); HYPERTENSION NOS Social History Tobacco Use Types Packs/Day Years Used Date Smoking Tobacco: Never Assessed Comments Unknown Sex and Gender Information Value Date Recorded Sex Assigned at Not on file Legal Sex Female 4:20 AM CHILI PEPPER GRINDER Gender Identity Not on file Sexual Orientation Not on file documented as of this encounter Plan of Treatment Not on file documented as of this encounter Visit Diagnoses Diagnosis Pure hypercholesterolem- Primary Pure hypercholesterolemia Unspecified essential hypertension documented in this encounter Care Teams Grinding Machine Operator Portable Relationship Specialty Start Date End Date Ahsan Cho Jr., MD [address] [place] [address] PCP - General Family Practice 05/03/14 documented as of this encounter
--- OUTSIDE RECORDS SUMMARY | 2025-09-09 19:59 | XMS_ITS | Encounter Summary ---
Author Organization [facility] Address [address] [place] [address] Care Team Providers Care Commissioner Of Relocation Services Name Role Phone Marquis Bills MD, Ahsan Barrios Primary Care Provider Encounter Details Date Type Department Care Team (Late st Contact Info) Description 08/02/2003 Outpatient Historical HIS [facility] Social History Tobacco Use Types Packs/Day Years Used Date Smoking Tobacco: Never Assessed Comments Unknown Sex and Gender Information Value Date Recorded Sex Assigned at Not on file Legal Sex Female 4:20 AM PRODUCTION SPECIALIST Gender Identity Not on file Sexual Orientation Not on file documented as of this encounter Plan of Treatment Not on file documented as of this encounter Visit Diagnoses Not on filedocumented in this encounter Care Teams Commissioner Of Relocation Services Relationship Specialty Start Date End Date Ahsan Cho Jr., MD [address] [place] [address] PCP - General Family Practice 05/03/14 documented as of this encounter
--- OUTSIDE RECORDS SUMMARY | 2025-09-09 19:59 | XMS_ITS | Encounter Summary ---
Author Organization [facility] Address [address] [place] [address] Care Team Providers Care Horse Groomer Name Role Phone Marquis Bills MD, Ahsan Barrios Primary Care Provider Encounter Details Date Type Department Care Team (Latest Contact Info) Description 07/18/2001 Outpatient Historical HIS [facility] Delfin Rodriguez MD [address] [place], [place] [phone] CONTUSION OF THIGH (Primary Dx); HYPERTENSION NOS Social History Tobacco Use Types Packs/Day Years Used Date Smoking Tobacco: Never Assessed Comments Unknown Sex and Gender Information Value Date Recorded Sex Assigned at Not on file Legal Sex Female 4:20 AM HOT OILER Gender Identity Not on file Sexual Orientation Not on file documented as of this encounter Plan of Treatment Not on file documented as of this encounter Visit Diagnoses Diagnosis Contusion of thigh- Primary Unspecified essential hypertension documented in this encounter Care Teams Horse Groomer Relationship Specialty Start Date End Date Ahsan Cho Jr., MD [address] [place] [address] PCP - General Family Practice 05/03/14 documented as of this encounter
--- OUTSIDE RECORDS SUMMARY | 2025-09-09 19:59 | XMS_ITS | Encounter Summary ---
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
--- OUTSIDE RECORDS SUMMARY | 2025-09-09 19:59 | XMS_ITS | Encounter Summary ---
Author Organization [facility] Address [address] [place] [address] Care Team Providers Care Library Services Coordinator Name Role Phone Marquis Bills MD, Ahsan Barrios Primary Care Provider Encounter Details Date Type Department Care Team (Latest Contact Info) Description 08/01/2002 Outpatient Historical HIS [facility] Delfin Rodriguez MD [address] [place], [place] [address] BUNION (Primary Dx); HYPERTENSION NOS Social History Tobacco Use Types Packs/Day Years Used Date Smoking Tobacco: Never Assessed Comments Unknown Sex and Gender Information Value Date Recorded Sex Assigned at Not on file Legal Sex Female 4:20 AM CANDY CATCHER Gender Identity Not on file Sexual Orientation Not on file documented as of this encounter Plan of Treatment Not on file documented as of this encounter Visit Diagnoses Diagnosis Bunion- Primary Unspecified essential hypertension documented in this encounter Care Teams Library Services Coordinator Relationship Specialty Start Date End Date Ahsan Cho Jr., MD [address] [place] [address] PCP - General Family Practice 05/03/14 documented as of this encounter
--- OUTSIDE RECORDS SUMMARY | 2025-09-09 19:59 | XMS_ITS | Encounter Summary ---
Author Organization [facility] Address [address] [place] [address] Care Team Providers Care Fire Services Plumber Name Role Phone Marquis Bills MD, Ahsan Barrios Primary Care Provider Encounter Details Date Type Department Care Team (Latest Contact Info) Description 01/26/2001 Outpatient Historical HIS [facility] Param Ferrer NO ADDRESS ON FILE Unspecified essential hypertension (Primary Dx) Social History Tobacco Use Types Packs/Day Years Used Date Smoking Tobacco: Never Assessed Comments Unknown Sex and Gender Information Value Date Recorded Sex Assigned at Not on file Legal Sex Female 4:20 AM SPARES SCHEDULER Gender Identity Not on file Sexual Orientation Not on file documented as of this encounter Plan of Treatment Not on file documented as of this encounter Visit Diagnoses Diagnosis Unspecified essential hypertension- Primary documented in this encounter Care Teams Fire Services Plumber Relationship Specialty Start Date End Date Ahsan Cho Jr., MD [address] [place] [address] PCP - General Family Practice 05/03/14 documented as of this encounter
--- OUTSIDE RECORDS SUMMARY | 2025-09-09 19:59 | XMS_ITS | Encounter Summary ---
Author Organization [facility] Address [address] [place] [address] Care Team Providers Care Straight Ruling Machine Operator Name Role Phone Marquis Bills MD, Ahsan Barrios Primary Care Provider Encounter Details Date Type Department Care Team (Latest Contact Info) Description 01/24/2001 Outpatient Historical HIS [facility] Param Ferrer NO ADDRESS ON FILE Unspecified essential hypertension (Primary Dx) Social History Tobacco Use Types Packs/Day Years Used Date Smoking Tobacco: Never Assessed Comments Unknown Sex and Gender Information Value Date Recorded Sex Assigned at Not on file Legal Sex Female 4:20 AM RECONCILIATION CLERK Gender Identity Not on file Sexual Orientation Not on file documented as of this encounter Plan of Treatment Not on file documented as of this encounter Visit Diagnoses Diagnosis Unspecified essential hypertension- Primary documented in this encounter Care Teams Straight Ruling Machine Operator Relationship Specialty Start Date End Date Ahsan Cho Jr., MD [address] [place] [address] PCP - General Family Practice 05/03/14 documented as of this encounter
--- OUTSIDE RECORDS SUMMARY | 2025-09-09 19:59 | XMS_ITS | Encounter Summary ---
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
--- OUTSIDE RECORDS SUMMARY | 2025-09-09 19:59 | XMS_ITS | Encounter Summary ---
Author Organization [facility] Address [address] [place] [address] Care Team Providers Care Preventative Maintenance Technician Name Role Phone Marquis Bills MD, Ahsan Barrios Primary Care Provider Encounter Details Date Type Department Care Team (Latest Contact Info) Description 12/22/2000 Outpatient Historical HIS [facility] Param Ferrer NO ADDRESS ON FILE Benign hypertension (Primary Dx); Abdominal pain, unspecified site; Diverticulosis of colon Social History Tobacco Use Types Packs/Day Years Used Date Smoking Tobacco: Never Assessed Comments Unknown Sex and Gender Information Value Date Recorded Sex Assigned at Not on file Legal Sex Female 4:20 AM POLISHING MACHINE OPERATOR HELPER Gender Identity Not on file Sexual Orientation Not on file documented as of this encounter Plan of Treatment Not on file documented as of this encounter Visit Diagnoses Diagnosis Benign hypertension- Primary Essential hypertension, benign Abdominal pain, unspecified site Diverticulosis of colon Diverticulosis of colon (without mention of hemorrhage) documented in this encounter Care Teams Preventative Maintenance Technician Relationship Specialty Start Date End Date Ahsan Cho Jr., MD [address] [place] [address] PCP - General Family Practice 05/03/14 documented as of this encounter
--- OUTSIDE RECORDS SUMMARY | 2025-09-09 19:59 | XMS_ITS | Encounter Summary ---
Author Organization [facility] Address [address] [place] [address] Care Team Providers Care Fuel Cell Engineer Name Role Phone Marquis Bills MD, Ahsan Barrios Primary Care Provider Encounter Details Date Type Department Care Team (Latest Contact Info) Description 12/21/2001 Outpatient Historical HIS [facility] Delfin Rodriguez MD [address] [place], [place] [phone] OTHER MALAISE AND FATIGUE (Primary Dx); HYPERTENSION NOS Social History Tobacco Use Types Packs/Day Years Used Date Smoking Tobacco: Never Assessed Comments Unknown Sex and Gender Information Value Date Recorded Sex Assigned at Not on file Legal Sex Female 4:20 AM DIRECTOR TALENT MANAGEMENT Gender Identity Not on file Sexual Orientation Not on file documented as of this encounter Plan of Treatment Not on file documented as of this encounter Visit Diagnoses Diagnosis Other malaise and fatigue- Primary Unspecified essential hypertension documented in this encounter Care Teams Fuel Cell Engineer Relationship Specialty Start Date End Date Ahsan Cho Jr., MD [address] [place] [address] PCP - General Family Practice 05/03/14 documented as of this encounter
--- OUTSIDE RECORDS SUMMARY | 2025-09-09 19:59 | XMS_ITS | Encounter Summary ---
Author Organization [employer] [facility] Address [address] [place] [address] Care Team Providers Care Pool Table Mechanic Name Role Phone Marquis Bills MD, Ahsan Barrios Primary Care Provider Encounter Details Date Type Department Care Team (Latest Contact Info) Description 12/06/2000 Outpatient Historical HIS [facility] Param Ferrer NO ADDRESS ON FILE Other malaise and fatigue (Primary Dx); Unspecified essential hypertension Social History Tobacco Use Types Packs/Day Years Used Date Smoking Tobacco: Never Assessed Comments Unknown Sex and Gender Information Value Date Recorded Sex Assigned at Not on file 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
--- OUTSIDE RECORDS SUMMARY | 2025-09-09 19:59 | XMS_ITS | Encounter Summary ---
Author Organization [facility] Address [address] [place] [address] Care Team Providers Care Consumer Lending Manager Name Role Phone Marquis Bills MD, Ahsan Barrios Primary Care Provider Encounter Details Date Type Department Care Team (Latest Contact Info) Description 01/31/1999 Outpatient Historical HIS [facility] Param Ferrer NO ADDRESS ON FILE Other malaise and fatigue (Primary Dx) Social History Tobacco Use Types Packs/Day Years Used Date Smoking Tobacco: Never Assessed Comments Unknown Sex and Gender Information Value Date Recorded Sex Assigned at Not on file 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
--- OUTSIDE RECORDS SUMMARY | 2025-09-09 19:59 | XMS_ITS | Encounter Summary ---
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
[2025-09-09 20:28] VITALS: RESP 20; O2SAT 92
[2025-09-09] MEDS: morphine 4 mg/mL SDV 1 mL IM (20:28)
[2025-09-09] MEDS: ondansetron 2 mg/ML SDV 2 mL 4 MG IM (20:28)
--- NOTE | 2025-09-09 21:35 | PC.NURSE ---
nurse attempted twice for IV blew one then francisca rn was able to obtain IV with ultrasound once medications were drawn from [facility] for htn and jada up by nurse then blood pressure was obtained one more time prior to administer and her blood pressure had resolved on its own. Spoke with angela AVENDANO and she said to waste medication, have patient perform blood pressure log at home, and she is good for discharge home
[2025-09-09 21:59] VITALS: BP 160/98; PULSE 86; RESP 19; O2SAT 93
== END 2025-09-09 22:00 | disposition home or self-care (01) ==
PROVIDERS: Emergency Provider Physician Assistant; PCP Family Medicine
DX: S89.91XA Unspecified injury of right lower leg, initial encounter (principal); E78.2 Mixed hyperlipidemia; I10 Essential (primary) hypertension; Z86.73 Personal history of transient ischemic attack (TIA), and cerebral infarction without residual deficits; W19.XXXA Unspecified fall, initial encounter
CPT/HCPCS: 73562; 96372; 99284; J0360; J2270; J2405; J3490; J9999

== ENCOUNTER 2025-09-11 13:39 | Outpatient (CLI) | payer MEDICARE, MEDICAID, SELFPAY ==
--- NOTE | 2025-09-11 13:45 | XR_ITS ---
WS: [id number] Thoracic spine, 3 views, 09/11/2025 Clinical Data: back pain Comparison: None. Findings: No compression fractures are seen. The disc heights are normal. 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 There is a gentle levoscoliosis. 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
--- NOTE | 2025-09-11 13:45 | XR_ITS ---
WS: [id number] Right rib detail, 2 views, 09/11/2025 Clinical Data: back pain Comparison: None. Findings: There is minimal irregularity of the posterior lateral aspect of the right fifth rib but no displaced fracture is seen. No pneumothorax or subcutaneous emphysema is seen. There is a vena caval filter. There is a radiopaque clip in the left upper quadrant. XR/XR ribs RT 2V* [id number] Impression: Questionable undisplaced fracture of posterior lateral aspect of right fifth ri b.
== END 2025-09-11 13:40 | disposition home or self-care (01) ==
LOC: RAD 13:41
PROVIDERS: PCP Family Medicine; Visit Provider Family Medicine
DX: M54.9 Dorsalgia, unspecified (principal); M47.894 Other spondylosis, thoracic region; Z96.89 Presence of other specified functional implants
CPT/HCPCS: 71100; 72072